=== PATIENT | female | born 1950 | race Caucasian/White ===

== ENCOUNTER 2018-06-03 14:41 | Emergency (ER) | payer MEDICARE, MEDICAID ==
[2018-06-03 14:41] VITALS: BMI 26.2
[2018-06-03 14:56] VITALS: BP 97/55; PULSE 81; RESP 19; TEMP 98.2; O2SAT 96
--- NOTE | 2018-06-03 15:49 | RAD ---
Date of service: 06/03/2018 PROCEDURE: Left Foot Radiographs. HISTORY: Pain COMPARISON: None. FINDINGS: BONES: Bone alignment is normal. There is no acute displaced fracture or bone destruction. There is periarticular bone demineralization. JOINTS: Normal. SOFT TISSUES: Normal. OTHER FINDINGS: None. IMPRESSION: No acute fracture or dislocation.
--- NOTE | 2018-06-03 17:15 | ED PDOC ---
Lower Extremity Pain/Injury Time Seen by Provider: 06/03/18 15:08 Chief Complaint (Nursing): Lower Extremity Problem/Injury Chief Complaint (Provider): Left foot pain History Per: Patient History/Exam Limitations: no limitations Onset/Duration Of Symptoms: Days (5x) Current Symptoms Are (Timing): Still Present Severity: Moderate Additional Complaint(s): 67 year old female with no pertinent past medical history presents to the ED with complaints of inner left foot pain that started 5x days ago. Patient does not remember sustaining any injury to her left foot. Patient was seen by her PMD at [facility] 3x days ago, and was told that she needed an XRay of her foot, prompting ED visit today. Patient reports having minimal pain when sedentary, and more pain with walking. Patient denies having any other complaints. PMD: [facility] Past Medical History Reviewed: Historical Data, Nursing Documentation, Vital Signs Vital Signs: Last Vital Signs Temp 98.2 F 06/03/18 14:54 Pulse 81 06/03/18 14:54 Resp 19 06/03/18 14:54 BP 97/55 L 06/03/18 14:54 Pulse Ox 96 06/03/18 14:54 - Medical History PMH: Anxiety, Depression, Fractures (right arm), HTN Denies: HIV, Chronic Kidney Disease - Surgical History Surgical History: Appendectomy, Cholecystectomy, Tonsillectomy - Family History Family History: States: No Known Family Hx - Social History Current smoker - smoking cessation education provided: No Alcohol: Other (yes) Drugs: Denies - Home Medications Home Medications: Ambulatory Orders Medication Instructions Recorded PARoxetine [Paxil] 30 mg PO DAILY 05/02/14 Nebivolol [Bystolic] 5 mg PO DAILY 10/09/14 Ibuprofen [Motrin] 600 mg PO Q6 PRN #20 tab 02/16/15 Prednisone 40 mg PO DAILY #10 tab 04/11/15 Diclofenac Sodium [Voltaren Gel] 1 gm TP BID PRN #30 gm 07/06/15 Oxycodone HCl/Acetaminophen 1 each PO Q6 PRN #10 tablet 07/06/15 [Percocet 5-325 mg Tablet] - Allergies Allergies/Adverse Reactions: Allergies Allergy/AdvReac Type Severity Reaction Status Date / Time iodine Allergy RASH Verified 06/03/18 14:56 Penicillins Allergy RASH Verified 06/03/18 14:56 Sulfa (Sulfonamide Allergy RASH Verified 06/03/18 14:56 Antibiotics) tetanus and diphtheria Allergy SWELLING Verified 06/03/18 14:56 toxoids [tetanus & diphtheria toxoids] Review of Systems ROS Statement: Except As Marked, All Systems Reviewed And Found Negative Musculoskeletal: Positive for: Foot Pain (inner left foot pain) Physical Exam - Reviewed Nursing Documentation Reviewed: Yes Vital Signs Reviewed: Yes - Physical Exam Appears: Positive for: Well, Non-toxic, No Acute Distress Head Exam: Positive for: ATRAUMATIC, NORMOCEPHALIC Skin: Positive for: Normal Color, Warm, Dry Extremity: Positive for: Normal ROM (of left foot), Capillary Refill (left foot: <2 sec ). Negative for: Tenderness, Calf Tenderness, Swelling Neurologic/Psych: Positive for: Alert, Oriented (3x) - ECG O2 Sat by Pulse Oximetry: 96 (RA) Pulse Ox Interpretation: Normal - Radiology X-Ray: Viewed By Me, Read By Radiologist (see MDM note) Medical Decision Making Medical Decision Makin:08 Initial impression: 67 year old female with inner left foot pain. Initial plan: * XRay foot left 3 views * reevaluation Patient was offered an GERARDO wrap for left foot, but declined it because she was going home. 15:45 XRay foot left read and reviewed by radiologist IMPRESSION: No acute fracture or dislocation. 17:14 Upon provider reevaluation patient is feeling better, is medically stable, and requires no further treatment in the ED at this time. Patient will be discharged home. Counseling was provided and all questions were answered regarding diagnosis. There is agreement to discharge plan. Return if symptoms persist or worsen. Scribe Attestation: Documented by April Evangelista, acting as a scribe for Alia Levine PA-C. Provider Scribe Attestation: All medical record entries made by the Scribe were at my direction and personally dictated by me. I have reviewed the chart and agree that the record accurately reflects my personal performance of the history, physical exam, medical decision making, and the department course for this patient. I have also personally directed, reviewed, and agree with the discharge instructions and disposition. Disposition - Clinical Impression Clinical Impression: Foot pain - Patient ED Disposition Is Patient to be Admitted: No Counseled Patient/Family Regarding: Diagnosis, Need For Followup - Disposition Disposition: Routine/Home Disposition Time: 17:14 Condition: GOOD Instructions: Muscle and Bone Pain (DC) Forms: [facility] [employer] (Qatari)
== END 2018-06-03 17:16 | disposition home or self-care (01) ==
LOC: H.ER 14:41
DX: M79.672 Pain in left foot (principal); Z86.59 Personal history of other mental and behavioral disorders; I10 Essential (primary) hypertension; Z88.0 Allergy status to penicillin

== ENCOUNTER 2018-08-12 10:58 | Emergency (ER) | payer MEDICARE, MEDICAID ==
[2018-08-12 11:15] VITALS: BMI 51.3
[2018-08-12 11:16] VITALS: BP 124/74; PULSE 89; RESP 17; TEMP 98.6; O2SAT 98
[2018-08-12 13:05] LABS: BASO % 0.6 % (0.0-2.0); EOS % 0.5 % (0.0-4.0); HEMOGLOBIN 14.2 g/dL (12.0-16.0); LYMPH # 0.9 K/uL (1.0-4.3); LYMPH % 14.4 % (20.0-40.0); MEAN CORPUSCULAR HEMOGLOBIN 26.4 pg (27.0-31.0); MEAN CORPUSCULAR HGB CONC 32.2 g/dL (33.0-37.0); MEAN PLATELET VOLUME 7.6 fl (7.2-11.7); MONO # 0.7 K/uL (0.0-0.8); MONO % 11.2 % (0.0-10.0); NEUT # 4.3 K/uL (1.8-7.0); NEUT % 73.3 % (50.0-75.0); NRBC % 0.2 % (0.0-0.0); RBC 5.36 Mil/uL (3.80-5.20); RED CELL DISTRIBUTION WIDTH 17.5 % (11.5-14.5); WHITE BLOOD COUNT 5.9 K/uL (4.8-10.8)
[2018-08-12 13:19] LABS: BLOOD UREA NITROGEN 25 mg/dl (7-17); CALCIUM 9.1 mg/dL (8.4-10.2); GFR NON-AFRICAN AMERICAN > 60
--- NOTE | 2018-08-12 13:24 | ED PDOC ---
HPI: Skin/Bite Injury Time Seen by Provider: 08/12/18 11:52 Chief Complaint (Nursing): Abnormal Skin Integrity Chief Complaint (Provider): spider bite History Per: Patient History/Exam Limitations: no limitations Additional Complaint(s): 67 y/o F with HTN, HL, DM, SLE who presents with spider bite. Pt states that she was in her yard 2 days ago when a spider fell down her shirt and bit her in the belly button. She was using witch aubrey but began noticing a foul odor and redness in the area so came in for further evaluation. She states that she noticed purulent drainage once and then became clear. Denies fever, abdominal pain, N/V, diarrhea. Past Medical History Vital Signs: Last Vital Signs Temp 98.6 F 08/12/18 11:15 Pulse 89 08/12/18 11:15 Resp 17 08/12/18 11:15 BP 124/74 08/12/18 11:15 Pulse Ox 98 08/12/18 11:15 - Medical History PMH: Anxiety, COPD, Depression, Fractures (right arm), HTN Denies: HIV, Chronic Kidney Disease - Surgical History Surgical History: Appendectomy, Cholecystectomy, Tonsillectomy - Family History Family History: States: Unknown Family Hx - Home Medications Home Medications: Ambulatory Orders Medication Instructions Recorded RX: PARoxetine [Paxil] 30 mg PO DAILY 05/02/14 Nebivolol [Bystolic] 5 mg PO DAILY 10/09/14 Ibuprofen [Motrin] 600 mg PO Q6 PRN #20 tab 02/16/15 RX: Prednisone 40 mg PO DAILY #10 tab 04/11/15 Diclofenac Sodium [Voltaren Gel] 1 gm TP BID PRN #30 gm 07/06/15 Oxycodone HCl/Acetaminophen 1 each PO Q6 PRN #10 tablet 07/06/15 [Percocet 5-325 mg Tablet] RX: Clindamycin [Cleocin] 450 mg PO TID 7 Days cap 08/12/18 RX: Nystatin 15 gm TP BID 7 Days powder 08/12/18 - Allergies Allergies/Adverse Reactions: Allergies Allergy/AdvReac Type Severity Reaction Status Date / Time iodine Allergy RASH Verified 06/03/18 14:56 Penicillins Allergy RASH Verified 06/03/18 14:56 Sulfa (Sulfonamide Allergy RASH Verified 06/03/18 14:56 Antibiotics) tetanus and diphtheria Allergy SWELLING Verified 06/03/18 14:56 toxoids [tetanus & diphtheria toxoids] diphenhydramine AdvReac Tachycardia Verified 08/12/18 11:49 [From Benadryl] Review of Systems Constitutional: Negative for: Fever, Chills Skin: Positive for: Rash Physical Exam - Reviewed Nursing Documentation Reviewed: Yes Vital Signs Reviewed: Yes - Physical Exam Appears: Positive for: Well Skin: Positive for: Rash (diffuse erythema extending approximately 7 in past navel area, mild foul odor with mild thick white discharge. Area of induration above navel area. No purulent drainage or fluctuance. ) Neurologic/Psych: Positive for: Alert, Oriented - Laboratory Results Result Diagrams: 08/12/18 13:01 08/12/18 13:01 - ECG O2 Sat by Pulse Oximetry: 98 Medical Decision Making Medical Decision Making: CBC, BMP labs wnl Pt advised to take antibiotics as prescribed and to use Nystatin powder in navel area as she appears to have mild fungal infection. She was given return instructions for fever, chills or night sweats. Disposition - Clinical Impression Clinical Impression: Cellulitis of abdominal wall - Patient ED Disposition Is Patient to be Admitted: No Counseled Patient/Family Regarding: Studies Performed, Diagnosis, Need For Followup - Disposition Disposition: Routine/Home Disposition Time: 14:30 Condition: STABLE Additional Instructions: F/u with your primary care doctor for re-evaluation. Complete course of antibiotics as prescribed. Return to ER if you develop worsening redness despite antibiotics or if you develop fevers. Take Tylenol or Ibuprofen for pain. Prescriptions: RX: Clindamycin [Cleocin] 450 mg PO TID 7 Days cap RX: Nystatin 15 gm TP BID 7 Days powder Instructions: Cellulitis (Skin Infection), Adult (DC) Forms: [employer] (Slovenian) Print Language: UKRAINIAN
== END 2018-08-12 14:44 | disposition home or self-care (01) ==
LOC: H.ER 10:58
DX: L03.311 Cellulitis of abdominal wall (principal); E11.9 Type 2 diabetes mellitus without complications; Z79.899 Other long term (current) drug therapy

== ENCOUNTER 2018-09-01 16:13 | Inpatient (IN) | payer OTHER, MEDICAID ==
[2018-09-01] MEDS ORDERED: Vancomycin 1 g Inj ONE (17:13)
--- NOTE | 2018-09-01 17:13 | ED PDOC ---
HPI: Skin/Bite Injury Time Seen by Provider: 09/01/18 16:38 Chief Complaint (Nursing): Shortness Of Breath Chief Complaint (Provider): Cellulitis History Per: Patient History/Exam Limitations: no limitations Onset/Duration Of Symptoms: Days Current Symptoms Are (Timing): Still Present Additional Complaint(s): 67 y/o female with a PMHx of COPD presents to the ED for evaluation of cellulitis. Patient reports of having erythema and tenderness to the periumbilical and suprapubic area as well as the right breast. Patient notes of being bitten by a spider two weeks ago started on PO Clindamycin with no improvement. Patient additionally reports of developing mild shortness of breath relating to COPD with improvement using at home oxygen. Patient denies any fever, drainage, cough and chest pain. PMD: [facility] Past Medical History Reviewed: Historical Data, Nursing Documentation, Vital Signs Vital Signs: Last Vital Signs Temp 99.4 F 09/01/18 16:26 Pulse 81 09/01/18 16:26 Resp 28 H 09/01/18 16:36 BP 126/85 09/01/18 16:26 Pulse Ox 2 L 09/01/18 16:36 - Medical History PMH: Anxiety, COPD, Depression, Fractures (right arm), HTN, Sleep Apnea Denies: HIV, Chronic Kidney Disease - Surgical History Surgical History: Appendectomy, Cholecystectomy, Tonsillectomy - Family History Family History: States: Unknown Family Hx - Home Medications Home Medications: Ambulatory Orders Medication Instructions Recorded PARoxetine [Paxil] 30 mg PO DAILY 05/02/14 Nebivolol [Bystolic] 5 mg PO DAILY 10/09/14 Aspirin [Ecotrin] 81 mg PO DAILY 09/01/18 - Allergies Allergies/Adverse Reactions: Allergies Allergy/AdvReac Type Severity Reaction Status Date / Time iodine Allergy RASH Verified 06/03/18 14:56 Penicillins Allergy RASH Verified 06/03/18 14:56 Sulfa (Sulfonamide Allergy RASH Verified 06/03/18 14:56 Antibiotics) tetanus and diphtheria Allergy SWELLING Verified 06/03/18 14:56 toxoids [tetanus & diphtheria toxoids] diphenhydramine AdvReac Tachycardia Verified 08/12/18 11:49 [From Benadryl] Review of Systems Respiratory: Positive for: Shortness of Breath Skin: Positive for: Rash Physical Exam - Reviewed Nursing Documentation Reviewed: Yes Vital Signs Reviewed: Yes - Physical Exam Appears: Positive for: No Acute Distress Head Exam: Positive for: ATRAUMATIC, NORMOCEPHALIC Skin: Positive for: Rash (periumbilical and suprapubic area with erythema, induration and peau d'orange. Right breast with erythema, warmth and tenderness to the lateral half extending to the nipple with no discharge. ) Eye Exam: Positive for: Normal appearance, EOMI, PERRL Neck: Positive for: Normal, Painless ROM Cardiovascular/Chest: Positive for: Regular Rate, Rhythm. Negative for: Murmur Respiratory: Positive for: Decreased Breath Sounds (mildly diminshed breath sounds). Negative for: Wheezing, Respiratory Distress Gastrointestinal/Abdominal: Positive for: Normal Exam Extremity: Positive for: Normal ROM. Negative for: Deformity Neurological/Psych: Positive for: Awake, Alert, Oriented - Laboratory Results Result Diagrams: 09/01/18 16:40 09/01/18 18:00 - ECG O2 Sat by Pulse Oximetry: 2 (RA) Pulse Ox Interpretation: Normal Medical Decision Making Medical Decision Making: Time: 1651 A/P: Cellulitis -- Failed outpatient therapy. -- Will start IV antibiotics. IV Vancomycin and obtain blood works and admit for continued IV antibiotic therapy -- VBG -- EKG -- CMP -- ED Urine Dipstick -- CBC with Differentials -- Vancomycin Inj 1 gm Sodium Chloride 250 ml IVPB -- Blood Culture -- Blood Culture Discussed with Dr. Reinoso. IV vancomycin started for failure of outpt tx of cellulitis. Calcium 5.9, albumin low at 2.3. No dysrhythmia on EKG. Will supplement with IV Calcium gluconate 500 mg and repeat ca in AM. Dr. Reinoso aware. Scribe Attestation: Documented by Bettye Woo, acting as a scribe Jodie Beatty M.D Provider Scribe Attestation: All medical record entries made by the Scribe were at my direction and personally dictated by me. I have reviewed the chart and agree that the record accurately reflects my personal performance of the history, physical exam, medical decision making, and the department course for this patient. I have also personally directed, reviewed, and agree with the discharge instructions and disposition. Disposition - Clinical Impression Clinical Impression: Cellulitis of abdominal wall, Hypocalcemia, Failure of outpatient treatment - Patient ED Disposition Is Patient to be Admitted: Yes - Disposition Disposition Time: 19:05 Condition: FAIR Forms: [employer] (Macedonian) - Pt Status Changed To: Hospital Disposition Of: Inpatient - Admit Certification Admit to Inpatient:: After my assessment, the patient will require hospitalization for at least two midnights. This is because of the severity of symptoms shown, intensity of services needed, and/or the medical risk in this patient being treated as an outpatient. - POA Present On Arrival: None
[2018-09-01 17:20] LABS: VENOUS BLOOD GAS BASE EXCESS 11.1 mmol/L (0.0-2.0); VENOUS BLOOD GAS PCO2 66 mmHg (40-60); VENOUS BLOOD GAS PO2 14 mm/Hg (30-55); VENOUS BLOOD PH 7.38 (7.32-7.43)
[2018-09-01 17:21] LABS: BASO % 0.6 % (0.0-2.0); EOS # 0.1 K/uL (0.0-0.7); EOS % 1.1 % (0.0-4.0); HEMOGLOBIN 13.4 g/dL (12.0-16.0); LYMPH # 0.8 K/uL (1.0-4.3); LYMPH % 15.3 % (20.0-40.0); MEAN CELL VOLUME 79.3 fl (81.0-99.0); MEAN CORPUSCULAR HEMOGLOBIN 24.7 pg (27.0-31.0); MEAN CORPUSCULAR HGB CONC 31.1 g/dL (33.0-37.0); MEAN PLATELET VOLUME 7.8 fl (7.2-11.7); MONO # 0.9 K/uL (0.0-0.8); MONO % 15.9 % (0.0-10.0); NEUT # 3.7 K/uL (1.8-7.0); NEUT % 67.1 % (50.0-75.0); NRBC % 0.1 % (0.0-0.0); RBC 5.45 Mil/uL (3.80-5.20); RED CELL DISTRIBUTION WIDTH 19.5 % (11.5-14.5); WHITE BLOOD COUNT 5.5 K/uL (4.8-10.8)
--- NOTE | 2018-09-01 18:35 | CARD ---
APPROVED REPORT Date of service: 09/01/2018 EKG Measurement Heart [id number] <Conclusion> Sinus rhythm with premature supraventricular complexes Low voltage complexes Cannot rule out Anterior infarct, age undetermined Abnormal ECG
[2018-09-01 18:42] LABS: ALB/GLOB RATIO 0.9 (1.0-2.1); ALBUMIN 2.3 g/dL (3.5-5.0); ALT/SGPT 42 U/L (9-52); AST/SGOT 20 U/L (14-36); BLOOD UREA NITROGEN 20 mg/dl (7-17); CALCIUM 5.9 mg/dL (8.4-10.2); GFR NON-AFRICAN AMERICAN > 60
[2018-09-01] MEDS ORDERED: Potassium Chl 40 mEq in D5-1/2 1,000 ML IV SCH (22:00)
[2018-09-01 23:28] VITALS: BMI 51.7
[2018-09-02 06:27] LABS: BASO % 0.4 % (0.0-2.0); EOS # 0.1 K/uL (0.0-0.7); EOS % 0.9 % (0.0-4.0); HEMOGLOBIN 12.6 g/dL (12.0-16.0); LYMPH # 0.8 K/uL (1.0-4.3); LYMPH % 10.6 % (20.0-40.0); MEAN CELL VOLUME 79.4 fl (81.0-99.0); MEAN CORPUSCULAR HEMOGLOBIN 24.9 pg (27.0-31.0); MEAN CORPUSCULAR HGB CONC 31.3 g/dL (33.0-37.0); MONO # 1.2 K/uL (0.0-0.8); MONO % 16.2 % (0.0-10.0); NEUT # 5.2 K/uL (1.8-7.0); NEUT % 71.9 % (50.0-75.0); NRBC % 0.1 % (0.0-0.0); RBC 5.08 Mil/uL (3.80-5.20); WHITE BLOOD COUNT 7.2 K/uL (4.8-10.8)
[2018-09-02 06:51] LABS: BLOOD UREA NITROGEN 24 mg/dl (7-17); CALCIUM 8.7 mg/dL (8.4-10.2); GFR NON-AFRICAN AMERICAN > 60
[2018-09-02] MEDS ORDERED: Albuterol-Ipratrop 3 mg / 0.5 (3 ml) UD INH PRN (08:58)
[2018-09-02] MEDS ORDERED: Enoxaparin 40 mg Syringe SC SCH (09:00)
[2018-09-02] MEDS ORDERED: PAROXETINE 30 MG PO SCH (09:00)
[2018-09-02] MEDS: Enoxaparin 60 mg Syringe SC SCH (09:03)
--- NOTE | 2018-09-02 11:05 | RAD ---
Date of service: 09/01/2018 HISTORY: cough COMPARISON: 06/17/2014. FINDINGS: LUNGS: The lungs are well inflated. There is mild pulmonary venous congestion. PLEURA: No pleural effusions or pneumothorax. CARDIOVASCULAR: Moderate cardiomegaly. No aortic atherosclerotic calcifications present. OSSEOUS STRUCTURES: Within normal limits for the patient's age. VISUALIZED UPPER ABDOMEN: Normal. OTHER FINDINGS: None. IMPRESSION: No active pulmonary disease.
[2018-09-02] MEDS: Ammonium Lactate 12% Cream (140 g) TOP SCH (17:35)
--- NOTE | 2018-09-02 20:10 | HP ---
HISTORY OF PRESENT ILLNESS: Ms. Brody is a 67-year-old female who was admitted via the emergency room because of a spider bite several days ago, associated with chills, fever abdominal wall periumbilical area and the right breast. She had been to the emergency room 2 weeks ago, when she first had the spider bite and was placed on clindamycin and some powder, but symptoms however worsened. She failed out treatment therapy and therefore came to the emergency room for further workup and therapy. She was noted to have severe erythema of the right breast abdominal wall periumbilical area especially and also in the left gluteal area. She therefore was admitted for IV antibiotics and therapy. PAST MEDICAL HISTORY: She has a past medical history of chronic obstructive pulmonary disease, anxiety, depression, fracture of right arm, hypertension, sleep apnea syndrome. FAMILY HISTORY: Non-revealing. SOCIAL HISTORY: She indicates that she quit smoking years ago. Does not drink alcohol and lives alone at home. PAST SURGICAL HISTORY: Remarkable for appendectomy, cholecystectomy and tonsillectomy. PHYSICAL EXAMINATION: GENERAL: The patient is alert and oriented, morbidly obese. VITAL SIGNS: Blood pressure of 126/85, pulse of 81, respiratory rate is 20 per minute. She has a low grade temperature of 99.4 degrees Fahrenheit. HEENT: Pupils are reactive to light and accommodation. Mouth shows fair hygiene. LUNGS: Fair aeration with dullness at the bases. HEART: Regular. No murmurs or gallops appreciated. BREASTS: There is cellulitis of the right breast and there is no discharge noted. ABDOMEN: There is severe cellulitis of the abdominal wall, especially the periumbilical area. RECTAL: Unremarkable. GENITALIA: Unremarkable. PELVIC: The gluteal area does not show any rash. EXTREMITIES: 1+ pitting pedal edema. CENTRAL NERVOUS SYSTEM: The patient is alert and oriented x3. No gross deficits appreciated except for unsteadiness of gait. LABORATORY DATA: Remarkable for sodium of 142, potassium 2.6, BUN of 20, creatinine 0.6, and serum calcium of 5.9. WBC 5.5, hemoglobin 13.4, platelet count 213,000. Venous blood gas; pH 7.36, pO2 of 14, pCO2 of 66, bicarbonate of 31. IMPRESSION: Cellulitis of abdominal wall and right breast following a spider bite, history of hypertension, morbid obesity, history of chronic obstructive pulmonary disease, history of anxiety with depression. PLAN: The plan is intravenous antibiotics. The patient also has incidentally noted hypokalemia and hypocalcemia. One would supplement calcium and potassium. Would continue antibiotic therapy and analgesics for pain, physical therapy evaluation for possible transfer to Transitional Care Unit. Will continue therapy as ordered. Oneil Reinoso MD
[2018-09-03] MEDS ORDERED: Benzocaine/Menthol (Cepacol) Lozenge PO PRN (05:34)
--- NOTE | 2018-09-03 09:34 | CP.PCM.PN ---
Subjective - Date & Time of Evaluation Date of Evaluation: 09/03/18 Time of Evaluation: 09:35 - Subjective Subjective: STILL WEAK CELLULITIS OF ABD WALL AND BREASTS IMPROVING ON IV ANTIBIOTICS Objective - Vital Signs/Intake and Output Vital Signs (last 24 hours): Temp Pulse Resp BP Pulse Ox 98.0 F 75 18 115/76 98 09/03/18 08:00 09/03/18 08:00 09/03/18 08:00 09/03/18 08:00 09/03/18 08:00 - Medications Medications: Current Medications Acetaminophen (Tylenol 325mg Tab) 650 mg PO Q4 PRN PRN Reason: Fever >100.4 F Albuterol/Ipratropium (Duoneb 3 Mg/0.5 Mg (3 Ml) Ud) 3 ml INH RQ6 PRN PRN Reason: Shortness of Breath Aspirin (Ecotrin) 81 mg PO DAILY [facility] Last Admin: 09/02/18 09:00 Dose: 81 mg Benzocaine/Menthol (Cepacol Sore Throat) 1 leonardo PO Q2 PRN PRN Reason: Sore Throat Last Admin: 09/03/18 06:13 Dose: 1 leonardo Enoxaparin Sodium (Lovenox) 60 mg SC DAILY [facility]; Protocol Last Admin: 09/02/18 09:03 Dose: 60 mg Vancomycin HCl 1 gm/ Sodium (Chloride) 250 mls @ 166.667 mls/hr IVPB Q12 [facility]; Protocol Last Admin: 09/02/18 21:31 Dose: 166.667 mls/hr Lactic Acid (Lac-Hydrin 12% Cream (140 G)) 1 ea TOP BID [facility] Last Admin: 09/02/18 17:35 Dose: 1 applic Metoprolol Tartrate (Lopressor) 25 mg PO Q12 [facility] Last Admin: 09/02/18 21:31 Dose: Not Given Paroxetine HCl (Paxil) 30 mg PO DAILY [facility] Last Admin: 09/02/18 09:02 Dose: 30 mg - Labs Labs: 09/02/18 05:45 09/02/18 05:45 - Constitutional Appears: No Acute Distress - Head Exam Head Exam: ATRAUMATIC, NORMAL INSPECTION, NORMOCEPHALIC - Eye Exam Eye Exam: EOMI, Normal appearance, PERRL Pupil Exam: NORMAL ACCOMODATION, PERRL - ENT Exam ENT Exam: Mucous Membranes Moist, Normal Exam - Neck Exam Neck Exam: Full ROM, Normal Inspection. absent: Lymphadenopathy - Respiratory Exam Respiratory Exam: Prolonged Expiratory Phase, Rales, NORMAL BREATHING PATTERN - Cardiovascular Exam Cardiovascular Exam: REGULAR RHYTHM, +S1, +S2. absent: Murmur - GI/Abdominal Exam GI & Abdominal Exam: Soft, Normal Bowel Sounds. absent: Tenderness - Rectal Exam Rectal Exam: NORMAL INSPECTION - Extremities Exam Extremities Exam: Full ROM, Normal Capillary Refill, Normal Inspection. absent: Joint Swelling, Pedal Edema - Back Exam Back Exam: NORMAL INSPECTION - Neurological Exam Neurological Exam: Alert, Awake, CN II-XII Intact, Normal Gait, Oriented x3 - Psychiatric Exam Psychiatric exam: Normal Affect, Normal Mood - Skin Skin Exam: Dry, Intact, Normal Color, Warm Additional comments: CELLULITIS OF BREAST AND ABD WALL IOMPROVING Assessment and Plan - Assessment and Plan (Free Text) Assessment: CELLULITIS OF ABD WALL AND BREAST ABNORMAL EKG HYPOCALCEMIA AND HYPOKALEMIA--RESOLVED MORBID OBESITY COPD Plan: CONTINUE ANTIBIOTIC RX CARDIOLOGY EVAL SURFACE BOSS FOR TCU
[2018-09-03] MEDS: Enoxaparin 60 mg Syringe SC SCH (09:58)
[2018-09-03] MEDS: Ammonium Lactate 12% Cream (140 g) TOP SCH ×2 (10:03→17:49)
--- NOTE | 2018-09-03 11:31 | CP.PCM.CON ---
History of Present Illness - History of Present Illness History of Present Illness: This 67-year-old female is well-known to me. She has had a history of panic disorder and has been using Paxil for it. She also has morbid obesity for which she had undergone a gastric sleeve procedure in 2003 which had to be reversed because of an infection. The patient subsequently has regained her weight and was planning to undergo a repeat bypass procedure to lose weight. She had seen me in September of last year to be evaluated prior to undergoing this procedure. Issues regarding her daytime drowsiness and snoring at night required a sleep study which revealed significant obstructive sleep apnea and the patient subsequently had titration studies done but never used CPAP machine for various reasons. She has also not undergone the gastric bypass procedure and continues to be severely obese at this point. The patient also has a history of smoking in the past and has significant COPD. PFTs have revealed significant restrictive and mild obstructive lung disease. The patient also had hypertension and borderline glucose intolerance. There is no prior history of myocardial infarction or congestive cardiac failure. An echocardiogram last year had revealed significant pulmonary hypertension probably related to chronic hypoxia due to hypoventilation syndrome. The patient was now hospitalized with cellulitis of the anterior abdominal and anterior chest wall. She has received intravenous antibiotics and indicates that there is a significant relief. Physical examination shows a middle-aged female who is extremely overweight and tends to fall asleep promptly but is easily arousable. Once awake she is quite coherent. She breathes at 16-18 breaths/min and has a heart rate of 80 bpm regular and a blood pressure of 134/74 mmHg her jugular venous pressure was not elevated and there was mild pitting edema over both lower extremities. The pedal pulses were well felt. There were no rales there was no gallop. Her electrocardiogram shows sinus rhythm with extreme right axis deviation and QS complexes in anterior chest leads suggestive of an old septal wall myocardial infarction, a pattern seen on earlier electric cardiogram as well. The echocardiogram does not last year shows normal left ventricular wall motion. Her pulmonary artery systolic pressure was approximately 55 mmHg. Her lab data was noted. Impression: Extreme obesity with obstructive sleep apnea, hypoxia hypov entilation syndrome with moderate pulmonary hypertension. Anxiety disorder. I will obtain a repeat electrocardiogram. The importance of addressing her sleep apnea was explained to her. In the meantime, she appears stable from cardiovascular point of view. Past Patient History - Infectious Disease Hx of Infectious Diseases: None - Tetanus Immunizations Tetanus Immunization: Unknown - Past Medical History & Family History Past Medical History?: Yes - Past Social History Smoking Status: Never Smoked - CARDIAC Hx Hypertension: Yes - PULMONARY Hx Chronic Obstructive Pulmonary Disease (COPD): Yes Hx Sleep Apnea: Yes - NEUROLOGICAL Hx Neurological Disorder: No (unknown) - HEENT Hx HEENT Problems: No - RENAL Hx Chronic Kidney Disease: No - ENDOCRINE/METABOLIC Hx Endocrine Disorders: Yes Hx Diabetes Mellitus Type 2: Yes (borderline) Hx Systemic Lupus Erythematosus: Yes - HEMATOLOGICAL/ONCOLOGICAL Hx Blood Disorders: No Hx AIDS: No Hx Human Immunodeficiency Virus (HIV): No - INTEGUMENTARY Hx Dermatological Problems: No - MUSCULOSKELETAL/RHEUMATOLOGICAL Hx Falls: No Hx Fractures: Yes (right arm) - GASTROINTESTINAL Hx Gastrointestinal Disorders: No Other/Comment: Hx of lap band surgery, has since been removed. - GENITOURINARY/GYNECOLOGICAL Hx Genitourinary Disorders: No - PSYCHIATRIC Hx Anxiety: Yes Hx Depression: Yes Hx Substance Use: No - SURGICAL HISTORY Hx Appendectomy: Yes Hx Cholecystectomy: Yes Hx Tonsillectomy: Yes - ANESTHESIA Hx Anesthesia: Yes Meds Allergies/Adverse Reactions: Allergies Allergy/AdvReac Type Severity Reaction Status Date / Time iodine Allergy RASH Verified 06/03/18 14:56 Penicillins Allergy RASH Verified 06/03/18 14:56 Sulfa (Sulfonamide Allergy RASH Verified 06/03/18 14:56 Antibiotics) tetanus and diphtheria Allergy SWELLING Verified 06/03/18 14:56 toxoids [tetanus & diphtheria toxoids] diphenhydramine AdvReac Tachycardia Verified 08/12/18 11:49 [From Benadryl] - Medications Medications: Current Medications Acetaminophen (Tylenol 325mg Tab) 650 mg PO Q4 PRN PRN Reason: Fever >100.4 F Albuterol/Ipratropium (Duoneb 3 Mg/0.5 Mg (3 Ml) Ud) 3 ml INH RQ6 PRN PRN Reason: Shortness of Breath Aspirin (Ecotrin) 81 mg PO DAILY [facility] Last Admin: 09/03/18 09:56 Dose: 81 mg Benzocaine/Menthol (Cepacol Sore Throat) 1 leonardo PO Q2 PRN PRN Reason: Sore Throat Last Admin: 09/03/18 06:13 Dose: 1 leonardo Enoxaparin Sodium (Lovenox) 60 mg SC DAILY [facility]; Protocol Last Admin: 09/03/18 09:58 Dose: 60 mg Vancomycin HCl 1 gm/ Sodium (Chloride) 250 mls @ 166.667 mls/hr IVPB Q12 [facility]; Protocol Last Admin: 09/03/18 10:00 Dose: 166.667 mls/hr Lactic Acid (Lac-Hydrin 12% Cream (140 G)) 1 ea TOP BID [facility] Last Admin: 09/03/18 10:03 Dose: 1 applic Metoprolol Tartrate (Lopressor) 25 mg PO Q12 [facility] Last Admin: 09/03/18 09:57 Dose: 25 mg Paroxetine HCl (Paxil) 30 mg PO DAILY [facility] Last Admin: 09/03/18 09:58 Dose: 30 mg Results - Vital Signs Recent Vital Signs: Last Vital Signs Temp 98.0 F 09/03/18 08:00 Pulse 75 09/03/18 09:57 Resp 18 09/03/18 08:00 BP 115/76 09/03/18 09:57 Pulse Ox 98 09/03/18 08:00 - Labs Result Diagrams: 09/02/18 05:45 09/02/18 05:45
--- NOTE | 2018-09-03 21:17 | CARD ---
APPROVED REPORT Date of service: 09/03/2018 EKG Measurement Heart [id number] <Conclusion> Sinus rhythm with premature atrial complexes Rightward axis Low voltage QRS Nonspecific T wave abnormality Abnormal ECG
[2018-09-04] MEDS: Enoxaparin 60 mg Syringe SC SCH (08:56)
--- NOTE | 2018-09-04 09:27 | CP.PCM.PN ---
Subjective - Date & Time of Evaluation Date of Evaluation: 09/04/18 Time of Evaluation: 09:30 - Subjective Subjective: SKIN ERYTEMA IMPROVED NO CHEST PAINS/SOB Objective - Vital Signs/Intake and Output Vital Signs (last 24 hours): Temp Pulse Resp BP Pulse Ox 97.4 F L 83 20 99/59 L 93 L 09/04/18 08:32 09/04/18 08:56 09/04/18 08:32 09/04/18 08:56 09/04/18 08:32 - Medications Medications: Current Medications Acetaminophen (Tylenol 325mg Tab) 650 mg PO Q4 PRN PRN Reason: Fever >100.4 F Albuterol/Ipratropium (Duoneb 3 Mg/0.5 Mg (3 Ml) Ud) 3 ml INH RQ6 PRN PRN Reason: Shortness of Breath Aspirin (Ecotrin) 81 mg PO DAILY [facility] Last Admin: 09/04/18 08:55 Dose: 81 mg Benzocaine/Menthol (Cepacol Sore Throat) 1 leonardo PO Q2 PRN PRN Reason: Sore Throat Last Admin: 09/03/18 06:13 Dose: 1 leonardo Enoxaparin Sodium (Lovenox) 60 mg SC DAILY [facility]; Protocol Last Admin: 09/04/18 08:56 Dose: 60 mg Vancomycin HCl 1 gm/ Sodium (Chloride) 250 mls @ 166.667 mls/hr IVPB Q12 [facility]; Protocol Last Admin: 09/04/18 08:57 Dose: 166.667 mls/hr Lactic Acid (Lac-Hydrin 12% Cream (140 G)) 1 ea TOP BID [facility] Last Admin: 09/03/18 17:49 Dose: 1 applic Metoprolol Tartrate (Lopressor) 12.5 mg PO DAILY [facility] Paroxetine HCl (Paxil) 30 mg PO DAILY [facility] Last Admin: 09/04/18 08:57 Dose: 30 mg - Labs Labs: 09/02/18 05:45 09/02/18 05:45 - Constitutional Appears: No Acute Distress - Head Exam Head Exam: ATRAUMATIC, NORMAL INSPECTION, NORMOCEPHALIC - Eye Exam Eye Exam: EOMI, Normal appearance, PERRL Pupil Exam: NORMAL ACCOMODATION, PERRL - ENT Exam ENT Exam: Mucous Membranes Moist, Normal Exam - Neck Exam Neck Exam: Full ROM, Normal Inspection. absent: Lymphadenopathy - Respiratory Exam Respiratory Exam: Clear to Ausculation Bilateral, NORMAL BREATHING PATTERN - Cardiovascular Exam Cardiovascular Exam: REGULAR RHYTHM, +S1, +S2. absent: Murmur Additional comments: FEW EXTRASYSTOLES - GI/Abdominal Exam GI & Abdominal Exam: Soft, Normal Bowel Sounds. absent: Tenderness - Rectal Exam Rectal Exam: NORMAL INSPECTION - Extremities Exam Extremities Exam: Full ROM, Normal Capillary Refill, Normal Inspection. absent: Joint Swelling, Pedal Edema - Back Exam Back Exam: NORMAL INSPECTION - Neurological Exam Neurological Exam: Alert, Awake, CN II-XII Intact, Normal Gait, Oriented x3 - Psychiatric Exam Psychiatric exam: Normal Affect, Normal Mood - Skin Skin Exam: Dry, Intact, Normal Color, Warm Additional comments: CELLULITIS IMPROVING Assessment and Plan - Assessment and Plan (Free Text) Assessment: CELLULITIS OF ABD WALL AND BREASTS ARRYTHMIAS MORBID OBESITY COPD WITH PULM HTN CASTILLO SYNDROME DEPRESSION Plan: CARDIOLOGY FOLLOWUP DECREASE DOSE OF BETA ENRIQUETA CONTINUE IV ANTIBIOTIC TX
--- NOTE | 2018-09-04 10:54 | CP.PCM.PN ---
Subjective - Date & Time of Evaluation Date of Evaluation: 09/04/18 Time of Evaluation: 10:50 - Subjective Subjective: The patient has been extremely somnolent and can be woken up with a slight difficulty. When awake the patient is quite oriented but tends to fall asleep promptly. Telemetry shows frequent premature atrial beats and rarely runs of APCs. Electrocardiogram shows right axis deviation with poor R wave progression in V1 to V4. The QRS voltage is small. There is no evidence of overt congestive cardiac failure in the form of raised JVP there is significant pedal edema. I have requested an echocardiogram to evaluate her right ventricle and pulmonary artery systolic pressure. Objective - Vital Signs/Intake and Output Vital Signs (last 24 hours): Temp Pulse Resp BP Pulse Ox 97.4 F L 83 20 99/59 L 93 L 09/04/18 08:32 09/04/18 08:56 09/04/18 08:32 09/04/18 08:56 09/04/18 08:32 - Medications Medications: Current Medications Acetaminophen (Tylenol 325mg Tab) 650 mg PO Q4 PRN PRN Reason: Fever >100.4 F Albuterol/Ipratropium (Duoneb 3 Mg/0.5 Mg (3 Ml) Ud) 3 ml INH RQ6 PRN PRN Reason: Shortness of Breath Aspirin (Ecotrin) 81 mg PO DAILY [facility] Last Admin: 09/04/18 08:55 Dose: 81 mg Benzocaine/Menthol (Cepacol Sore Throat) 1 leonardo PO Q2 PRN PRN Reason: Sore Throat Last Admin: 09/03/18 06:13 Dose: 1 leonardo Enoxaparin Sodium (Lovenox) 60 mg SC DAILY [facility]; Protocol Last Admin: 09/04/18 08:56 Dose: 60 mg Vancomycin HCl 1 gm/ Sodium (Chloride) 250 mls @ 166.667 mls/hr IVPB Q12 [facility]; Protocol Last Admin: 09/04/18 08:57 Dose: 166.667 mls/hr Lactic Acid (Lac-Hydrin 12% Cream (140 G)) 1 ea TOP BID [facility] Last Admin: 09/03/18 17:49 Dose: 1 applic Metoprolol Tartrate (Lopressor) 12.5 mg PO DAILY [facility] Paroxetine HCl (Paxil) 30 mg PO DAILY [facility] Last Admin: 09/04/18 08:57 Dose: 30 mg - Labs Labs: 09/02/18 05:45 09/02/18 05:45
[2018-09-04] MEDS: Ammonium Lactate 12% Cream (140 g) TOP SCH ×2 (14:55→17:09)
--- NOTE | 2018-09-04 17:34 | CARD ---
APPROVED REPORT Date of service: 09/04/2018 EKG Measurement Heart [id number] <Conclusion> Sinus rhythm with 1st degree AV block with premature atrial complexes Low voltage QRS Possible Anterolateral infarct, age undetermined Nonspecific ST-T changes Abnormal ECG
--- NOTE | 2018-09-05 08:41 | CP.PCM.PN ---
Subjective - Date & Time of Evaluation Date of Evaluation: 09/05/18 Time of Evaluation: 08:42 - Subjective Subjective: CELLULITIS OF ABD WALL AND BREAST IMPROVING NO CHEST PAINS/SOB TRANSFER TO TCU HELD BECAUSE OF CARDIAC EVAL Objective - Vital Signs/Intake and Output Vital Signs (last 24 hours): Temp Pulse Resp BP Pulse Ox 98.1 F 71 18 97/65 L 92 L 09/05/18 08:30 09/05/18 08:30 09/05/18 08:30 09/05/18 08:30 09/05/18 08:30 - Medications Medications: Current Medications Acetaminophen (Tylenol 325mg Tab) 650 mg PO Q4 PRN PRN Reason: Fever >100.4 F Albuterol/Ipratropium (Duoneb 3 Mg/0.5 Mg (3 Ml) Ud) 3 ml INH RQ6 PRN PRN Reason: Shortness of Breath Aspirin (Ecotrin) 81 mg PO DAILY [facility] Last Admin: 09/04/18 08:55 Dose: 81 mg Benzocaine/Menthol (Cepacol Sore Throat) 1 leonardo PO Q2 PRN PRN Reason: Sore Throat Last Admin: 09/03/18 06:13 Dose: 1 leonardo Enoxaparin Sodium (Lovenox) 60 mg SC DAILY [facility]; Protocol Last Admin: 09/04/18 08:56 Dose: 60 mg Vancomycin HCl 1 gm/ Sodium (Chloride) 250 mls @ 166.667 mls/hr IVPB Q12 [facility]; Protocol Last Admin: 09/04/18 21:30 Dose: 166.667 mls/hr Lactic Acid (Lac-Hydrin 12% Cream (140 G)) 1 ea TOP BID [facility] Last Admin: 09/04/18 17:09 Dose: 1 applic Metoprolol Tartrate (Lopressor) 12.5 mg PO DAILY [facility] Paroxetine HCl (Paxil) 30 mg PO DAILY [facility] Last Admin: 09/04/18 08:57 Dose: 30 mg - Labs Labs: 09/02/18 05:45 09/02/18 05:45 - Constitutional Appears: No Acute Distress - Head Exam Head Exam: ATRAUMATIC, NORMAL INSPECTION, NORMOCEPHALIC - Eye Exam Eye Exam: EOMI, Normal appearance, PERRL Pupil Exam: NORMAL ACCOMODATION, PERRL - ENT Exam ENT Exam: Mucous Membranes Moist, Normal Exam - Neck Exam Neck Exam: Full ROM, Normal Inspection. absent: Lymphadenopathy - Respiratory Exam Respiratory Exam: Clear to Ausculation Bilateral, NORMAL BREATHING PATTERN - Cardiovascular Exam Cardiovascular Exam: REGULAR RHYTHM, +S1, +S2. absent: Murmur - GI/Abdominal Exam GI & Abdominal Exam: Soft, Normal Bowel Sounds. absent: Tenderness - Rectal Exam Rectal Exam: NORMAL INSPECTION - Exam Exam: NORMAL INSPECTION - Extremities Exam Extremities Exam: Full ROM, Normal Capillary Refill, Normal Inspection. absent: Joint Swelling, Pedal Edema - Back Exam Back Exam: NORMAL INSPECTION - Neurological Exam Neurological Exam: Alert, Awake, CN II-XII Intact, Normal Gait, Oriented x3 - Psychiatric Exam Psychiatric exam: Normal Affect, Normal Mood - Skin Skin Exam: Dry, Intact, Normal Color, Warm Assessment and Plan - Assessment and Plan (Free Text) Assessment: CELLULITIS OF ABD WALL AND BREAST IMPROVING MORBID OBESITY CASTILLO SYNDROME ARRYTH/ASHD ELECTROLYTE IMBALANCE IMPROVED Plan: TRANSFER TO TCU IF CLEARED BY CARDIOLOGY WILL NEED 5 MORE DAYS OF IV ANTIBIOTICS
--- NOTE | 2018-09-05 08:53 | CARD ---
APPROVED REPORT Date of service: 09/04/2018 EXAM: Two-dimensional and M-mode echocardiogram with Doppler and color Doppler. Other Information Quality : AverageRhythm : Atrial Fibrillation INDICATION Pulmonary Hypertention 2D DIMENSIONS IVSd1.18 (0.7-1.1cm)LVDd4.66 (3.9-5.9cm) LVOT Diameter1.97 (1.8-2.4cm)PWd1.13 (0.7-1.1cm) IVSs1.09 (0.8-1.2cm)LVDs3.43 (2.5-4.0cm) FS (%) 26.3 %PWs1.13 (0.8-1.2cm) M-Mode DIMENSIONS Left Atrium (MM)5.56 (2.5-4.0cm)IVSd0.97 (0.7-1.1cm) Aortic Root2.55 (2.2-3.7cm)LVDd4.25 (4.0-5.6cm) Aortic Cusp Exc.2.08 (1.5-2.0cm)PWd1.24 (0.7-1.1cm) IVSs1.20 cmFS (%) 20 % LVDs3.40 (2.0-3.8cm)PWs1.51 cm Mitral Valve E/A ratio0.0 TDI E/Lateral E'0.0E/Medial E'0.0 Tricuspid Valve TR Peak [id number] [id number] Peak Gr.64mmHg [id number] LEFT VENTRICLE The left ventricle is normal size. There is normal left ventricular wall thickness. Left ventricle systolic function is normal. LVEF is 55-60%. There is normal LV segmental wall motion. Transmitral Doppler flow pattern is Grade I-abnormal relaxation pattern. RIGHT VENTRICLE The right ventricle is moderately to severely dilated. Systolic function is moderately reduced. ATRIA The left atrium size is normal. The right atrium is severely dilated. AORTIC VALVE The aortic valve is normal in structure. No aortic regurgitation is present. There is no aortic valvular stenosis. MITRAL VALVE The mitral valve is normal in structure. There is no evidence of mitral valve prolapse. There is no mitral valve stenosis. Mitral regurgitation is mild. TRICUSPID VALVE The tricuspid valve is normal in structure. There is moderate to severe tricuspid regurgitation. Right ventricular systolic pressure is estimated at 74 mmHg. There is severe pulmonary hypertension. PULMONIC VALVE The pulmonic valve is not well visualized. There is no pulmonic valvular regurgitation. GREAT VESSELS The aortic root is normal in size. The IVC was not visualized. PERICARDIAL EFFUSION The pericardium appears normal. <Conclusion> Due to evere obesity and chr lung disease the echo window was poor and the quality of images was poor. The left ventricle is normal size. There is normal left ventricular wall thickness. There is normal LV segmental wall motion. Left ventricle systolic function is normal. LVEF is 55-60%. Transmitral Doppler flow pattern is Grade I-abnormal relaxation pattern. The right ventricle is moderately to severely dilated. The right ventricle is moderately to severely dilated. Systolic function is moderately reduced. The right atrium is severely dilated. There is moderate to severe tricuspid regurgitation. Right ventricular systolic pressure is estimated at 74 mmHg. There is severe pulmonary hypertension.
[2018-09-05] MEDS: Enoxaparin 60 mg Syringe SC SCH (09:32)
[2018-09-05] MEDS: Ammonium Lactate 12% Cream (140 g) TOP SCH (09:33)
--- NOTE | 2018-09-05 10:12 | CP.PCM.PN ---
Subjective - Date & Time of Evaluation Date of Evaluation: 09/05/18 Time of Evaluation: 09:00 - Subjective Subjective: The patient was seen resting in bed. She appears mildly drowsy but is able to carry on a conversation and participate in discussion about her health. Review of her telemetry shows sinus rhythm with frequent premature atrial beats. Her blood pressure was 104/70 mmHg. Review of her echocardiogram shows a dilated right ventricle and a markedly dilated right atrium with a pulmonary artery systolic pressure of 74 mmHg. The patient has severe pulmonary hypertension as a consequence of chronic hypoxia secondary to obstructive sleep apnea which probably is a consequence of severe obesity. The patient needs to start using CPAP machine and needs to be evaluated for early gastric bypass surgery. I have spoken with the patient as well as her daughter about this. The patient may proceed to transitional care unit and then be considered for possible discharge. Objective - Vital Signs/Intake and Output Vital Signs (last 24 hours): Temp Pulse Resp BP Pulse Ox 98.1 F 71 18 97/65 L 92 L 09/05/18 08:30 09/05/18 08:30 09/05/18 08:30 09/05/18 09:33 09/05/18 08:30 - Medications Medications: Current Medications Acetaminophen (Tylenol 325mg Tab) 650 mg PO Q4 PRN PRN Reason: Fever >100.4 F Albuterol/Ipratropium (Duoneb 3 Mg/0.5 Mg (3 Ml) Ud) 3 ml INH RQ6 PRN PRN Reason: Shortness of Breath Aspirin (Ecotrin) 81 mg PO DAILY [facility] Last Admin: 09/05/18 09:33 Dose: 81 mg Benzocaine/Menthol (Cepacol Sore Throat) 1 leonardo PO Q2 PRN PRN Reason: Sore Throat Last Admin: 09/03/18 06:13 Dose: 1 leonardo Enoxaparin Sodium (Lovenox) 60 mg SC DAILY [facility]; Protocol Last Admin: 09/05/18 09:32 Dose: 60 mg Vancomycin HCl 1 gm/ Sodium (Chloride) 250 mls @ 166.667 mls/hr IVPB Q12 [facility]; Protocol Last Admin: 09/05/18 09:34 Dose: 166.667 mls/hr Lactic Acid (Lac-Hydrin 12% Cream (140 G)) 1 ea TOP BID [facility] Last Admin: 09/05/18 09:33 Dose: 1 applic Paroxetine HCl (Paxil) 30 mg PO DAILY [facility] Last Admin: 09/05/18 09:32 Dose: 30 mg - Labs Labs: 09/02/18 05:45 09/02/18 05:45
[2018-09-05 11:16] LABS: BLOOD UREA NITROGEN 18 mg/dl (7-17); CALCIUM 8.6 mg/dL (8.4-10.2); GFR NON-AFRICAN AMERICAN > 60
[2018-09-05 16:25] VITALS: BP 98/65; PULSE 85; RESP 20; TEMP 98.4; O2SAT 94
== END 2018-09-05 16:22 | DRG 603 ==
LOC: H.ER 16:13 → H.ERHOLD 18:59 → H.TEL 21:05
PROVIDERS: ADMIT Internal Medicine Pulmonary Disease; ATTEND Internal Medicine Pulmonary Disease
DX: L03.311 Cellulitis of abdominal wall (principal); Z68.43 Body mass index [BMI] 50.0-59.9, adult; T63.301A Toxic effect of unspecified spider venom, accidental (unintentional), initial encounter; N61.0 Mastitis without abscess; E87.6 Hypokalemia; E66.01 Morbid (severe) obesity due to excess calories; E83.51 Hypocalcemia; M32.9 Systemic lupus erythematosus, unspecified; E11.9 Type 2 diabetes mellitus without complications; I27.20 Pulmonary hypertension, unspecified; F32.9 Major depressive disorder, single episode, unspecified; F41.0 Panic disorder [episodic paroxysmal anxiety]; G47.33 Obstructive sleep apnea (adult) (pediatric); I10 Essential (primary) hypertension; I25.10 Atherosclerotic heart disease of native coronary artery without angina pectoris; J44.9 Chronic obstructive pulmonary disease, unspecified; G47.36 Sleep related hypoventilation in conditions classified elsewhere; Z98.84 Bariatric surgery status; Z87.891 Personal history of nicotine dependence; Z99.81 Dependence on supplemental oxygen; Z79.82 Long term (current) use of aspirin; Z88.0 Allergy status to penicillin; Z88.2 Allergy status to sulfonamides; Z91.041 Radiographic dye allergy status; Z88.7 Allergy status to serum and vaccine; Y92.9 Unspecified place or not applicable

== ENCOUNTER 2018-09-04 13:14 | Inpatient (IN) | payer OTHER, MEDICAID ==
[2018-09-05 16:50] VITALS: BMI 43.4
[2018-09-05] MEDS ORDERED: Albuterol-Ipratrop 3 mg / 0.5 (3 ml) UD INH PRN (17:11)
[2018-09-05] MEDS ORDERED: Benzocaine/Menthol (Cepacol) Lozenge PO PRN (17:11)
[2018-09-05] MEDS ORDERED: Patient's Own Med (Vancomycin 1 Gm [Vancomycin 1gm In Normal Saline Addvantage] 1 GM) IVPB SCH (21:00)
[2018-09-05] MEDS ORDERED: Bisacodyl 5mg EC Tab PO ONE (22:02)
[2018-09-05] MEDS: Ammonium Lactate 12% Cream (140 g) TOP SCH (22:04)
[2018-09-06] MEDS: Ammonium Lactate 12% Cream (140 g) TOP SCH ×2 (08:12→21:51)
[2018-09-06] MEDS: Enoxaparin 60 mg Syringe SC SCH (08:13)
--- NOTE | 2018-09-06 08:23 | CP.PCM.CON ---
History of Present Illness - History of Present Illness History of Present Illness: 7-year-old female is well-known to me. She is a long- standing severely obese patient who had undergone surgery for obesity with insertion of a gastric sleeve which was removed subsequently. She has gained significant amount of weight subsequently and now has severe obstructive sleep apnea with chronic hypoxia and severe pulmonary hypertension. The patient was recently treated in the acute care section of this facility and is now on transitional care unit before returning home. Physical examination shows a middle aged extremely overweight pleasant female who is anxious. She is alert awake coherent afebrile. Her pulse rate was 70 bpm regular and her blood pressure is 124/70 mmHg. Her jugular venous pressure could not be evaluated because of a short thick neck. There was pitting edema over both lower extremities which is chronic in nature. The apex was not palpable the first and second heart sounds were normal and distant. There was no gallop rhythm. The inspiratory effort was poor but there were no rales. Impression: Severe obstructive sleep apnea with chronic hypoxia and severe luminary hypertension. Morbid obesity. The patient needs to use CPAP machine which she understands. And she needs to be evaluated to go through gastric bypass surgery to resolve her morbid obesity. She is stable from cardiovascular point of view. Past Patient History - Infectious Disease Hx of Infectious Diseases: None - Tetanus Immunizations Tetanus Immunization: Unknown - Past Medical History & Family History Past Medical History?: Yes - Past Social History Smoking Status: Former Smoker - CARDIAC Hx Hypertension: Yes - PULMONARY Hx Chronic Obstructive Pulmonary Disease (COPD): Yes Hx Sleep Apnea: Yes - NEUROLOGICAL Hx Neurological Disorder: No (unknown) - HEENT Hx HEENT Problems: No - RENAL Hx Chronic Kidney Disease: No - ENDOCRINE/METABOLIC Hx Endocrine Disorders: Yes Hx Diabetes Mellitus Type 2: Yes (borderline) Hx Systemic Lupus Erythematosus: Yes - HEMATOLOGICAL/ONCOLOGICAL Hx Blood Disorders: No Hx AIDS: No Hx Human Immunodeficiency Virus (HIV): No Other/Comment: lupus - INTEGUMENTARY Hx Dermatological Problems: No - MUSCULOSKELETAL/RHEUMATOLOGICAL Hx Falls: No Hx Fractures: Yes (right arm) - GASTROINTESTINAL Hx Gastrointestinal Disorders: No Other/Comment: Hx of lap band surgery, has since been removed. - GENITOURINARY/GYNECOLOGICAL Hx Genitourinary Disorders: No - PSYCHIATRIC Hx Anxiety: Yes Hx Depression: Yes Hx Substance Use: No - SURGICAL HISTORY Hx Appendectomy: Yes Hx Cholecystectomy: Yes Hx Tonsillectomy: Yes - ANESTHESIA Hx Anesthesia: Yes Meds Allergies/Adverse Reactions: Allergies Allergy/AdvReac Type Severity Reaction Status Date / Time iodine Allergy RASH Verified 09/05/18 16:52 Penicillins Allergy RASH Verified 09/05/18 16:52 Sulfa (Sulfonamide Allergy RASH Verified 09/05/18 16:52 Antibiotics) tetanus and diphtheria Allergy SWELLING Verified 09/05/18 16:52 toxoids [tetanus & diphtheria toxoids] diphenhydramine AdvReac Tachycardia Verified 09/05/18 16:52 [From Benadryl] - Medications Medications: Current Medications Acetaminophen (Tylenol 325mg Tab) 650 mg PO Q4 PRN PRN Reason: Fever >100.4 F Albuterol/Ipratropium (Duoneb 3 Mg/0.5 Mg (3 Ml) Ud) 3 ml INH RQ6 PRN PRN Reason: Shortness of Breath Aspirin (Ecotrin) 81 mg PO DAILY [facility] Last Admin: 09/06/18 08:13 Dose: 81 mg Benzocaine/Menthol (Cepacol Sore Throat) 1 leonardo PO Q2 PRN PRN Reason: Sore Throat Docusate Sodium (Colace) 100 mg PO BID [facility] Last Admin: 09/06/18 08:13 Dose: 100 mg Enoxaparin Sodium (Lovenox) 60 mg SC DAILY [facility]; Protocol Last Admin: 09/06/18 08:13 Dose: 60 mg Vancomycin HCl 1 gm/ Sodium (Chloride) 250 mls @ 166.667 mls/hr IVPB Q12H [facility] Last Admin: 09/06/18 06:00 Dose: 166.667 mls/hr Lactic Acid (Lac-Hydrin 12% Cream (140 G)) 1 ea TOP Q12 [facility] Last Admin: 09/06/18 08:12 Dose: 1 u Paroxetine HCl (Paxil) 30 mg PO DAILY [facility] Last Admin: 09/06/18 08:14 Dose: 30 mg Results - Vital Signs Recent Vital Signs: Last Vital Signs Temp 97.3 F L 09/06/18 07:52 Pulse 83 09/06/18 07:52 Resp 22 09/06/18 07:52 BP 121/72 09/06/18 07:52 Pulse Ox 95 09/06/18 07:52
--- NOTE | 2018-09-06 12:23 | CP.PCM.HP ---
History of Present Illness - History of Present Illness History of Present Illness: 67 YR OLD FEMALE TRANSFERRED FROM TELEMETRY FOLLOWING THERAPY FOR CELLULITIS OF ABDOMINAL WALL AND BREASTS. PT IS HYPERTENSIVE WITH HX OF COPD,PULMONARY HTN,CASTILLO SYNDROME,MORBID OBESITY AND DEPRESSION. 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 SURGERY FOR OBESITY Present on Admission - Present on Admission Any Indicators Present on Admission: No Past Patient History - Infectious Disease Hx of Infectious Diseases: None - Tetanus Immunizations Tetanus Immunization: Unknown - Past Medical History & Family History Past Medical History?: Yes - Past Social History Smoking Status: Former Smoker - CARDIAC Hx Hypertension: Yes - PULMONARY Hx Chronic Obstructive Pulmonary Disease (COPD): Yes Hx Sleep Apnea: Yes - NEUROLOGICAL Hx Neurological Disorder: No (unknown) - HEENT Hx HEENT Problems: No - RENAL Hx Chronic Kidney Disease: No - ENDOCRINE/METABOLIC Hx Endocrine Disorders: Yes Hx Diabetes Mellitus Type 2: Yes (borderline) Hx Systemic Lupus Erythematosus: Yes - HEMATOLOGICAL/ONCOLOGICAL Hx Blood Disorders: No Hx AIDS: No Hx Human Immunodeficiency Virus (HIV): No Other/Comment: lupus - INTEGUMENTARY Hx Dermatological Problems: No - MUSCULOSKELETAL/RHEUMATOLOGICAL Hx Falls: No Hx Fractures: Yes (right arm) - GASTROINTESTINAL Hx Gastrointestinal Disorders: No Other/Comment: Hx of lap band surgery, has since been removed. - GENITOURINARY/GYNECOLOGICAL Hx Genitourinary Disorders: No - PSYCHIATRIC Hx Anxiety: Yes Hx Depression: Yes Hx Substance Use: No - SURGICAL HISTORY Hx Appendectomy: Yes Hx Cholecystectomy: Yes Hx Tonsillectomy: Yes - ANESTHESIA Hx Anesthesia: Yes Meds Allergies/Adverse Reactions: Allergies Allergy/AdvReac Type Severity Reaction Status Date / Time iodine Allergy RASH Verified 09/05/18 16:52 Penicillins Allergy RASH Verified 09/05/18 16:52 Sulfa (Sulfonamide Allergy RASH Verified 09/05/18 16:52 Antibiotics) tetanus and diphtheria Allergy SWELLING Verified 09/05/18 16:52 toxoids [tetanus & diphtheria toxoids] diphenhydramine AdvReac Tachycardia Verified 09/05/18 16:52 [From Benadryl] Physical Exam - Constitutional Appears: Well, No Acute Distress, Chronically Ill Additional comments: OBESE - Head Exam Head Exam: ATRAUMATIC, NORMAL INSPECTION, NORMOCEPHALIC - Eye Exam Eye Exam: EOMI, Normal appearance, PERRL Pupil Exam: NORMAL ACCOMODATION, PERRL - ENT Exam ENT Exam: Mucous Membranes Moist, Normal Exam - Neck Exam Neck exam: Positive for: Normal Inspection - Respiratory Exam Respiratory Exam: Prolonged Expiratory Phase, Rales, NORMAL BREATHING PATTERN - Cardiovascular Exam Cardiovascular Exam: REGULAR RHYTHM - GI/Abdominal Exam GI & Abdominal Exam: Normal Bowel Sounds, Soft. absent: Tenderness - Rectal Exam Rectal Exam: NORMAL INSPECTION - Extremities Exam Extremities exam: Positive for: normal inspection - Back Exam Back exam: NORMAL INSPECTION - Neurological Exam Neurological exam: Alert, CN II-XII Intact, Normal Gait, Oriented x3, Reflexes Normal - Psychiatric Exam Psychiatric exam: Normal Affect, Normal Mood - Skin Skin Exam: Dry, Intact, Normal Color, Warm Additional comments: REDNESS Results - Vital Signs Recent Vital Signs: Last Vital Signs Temp 97.3 F L 09/06/18 07:52 Pulse 83 09/06/18 07:52 Resp 22 09/06/18 07:52 BP 121/72 09/06/18 07:52 Pulse Ox 95 09/06/18 07:52 Assessment & Plan - Assessment and Plan (Free Text) Assessment: CELLULITIS OF ABD WALL AND BREAST HTN PULMONARY HTN VALVULAR HEART DZ OBESITY COPD CASTILLO SYNDROME Plan: CONTINUE CURRENT RX BIPAP AT HS
[2018-09-07 07:25] LABS: HEMOGLOBIN 12.4 g/dL (12.0-16.0); MEAN CELL VOLUME 80.1 fl (81.0-99.0); MEAN CORPUSCULAR HEMOGLOBIN 24.7 pg (27.0-31.0); MEAN CORPUSCULAR HGB CONC 30.9 g/dL (33.0-37.0); RBC 4.99 Mil/uL (3.80-5.20); RED CELL DISTRIBUTION WIDTH 19.3 % (11.5-14.5); WHITE BLOOD COUNT 4.1 K/uL (4.8-10.8)
[2018-09-07 08:01] LABS: BLOOD UREA NITROGEN 12 mg/dl (7-17); CALCIUM 8.9 mg/dL (8.4-10.2); GFR NON-AFRICAN AMERICAN > 60
--- NOTE | 2018-09-07 09:48 | CP.PCM.PN ---
Subjective - Date & Time of Evaluation Date of Evaluation: 09/07/18 Time of Evaluation: 09:48 - Subjective Subjective: FEELS BETTER TODAY ABLE TO USE BIPAP LAST NIGHT SKIN RASH IMPROVED Objective - Vital Signs/Intake and Output Vital Signs (last 24 hours): Temp Pulse Resp BP Pulse Ox 97.5 F L 88 18 132/76 132 H 09/07/18 08:16 09/07/18 08:16 09/07/18 08:16 09/07/18 08:16 09/07/18 08:16 - Medications Medications: Current Medications Acetaminophen (Tylenol 325mg Tab) 650 mg PO Q4 PRN PRN Reason: Fever >100.4 F Acetaminophen (Tylenol 325mg Tab) 650 mg PO Q6 PRN PRN Reason: Headache Last Admin: 09/07/18 00:51 Dose: 650 mg Albuterol/Ipratropium (Duoneb 3 Mg/0.5 Mg (3 Ml) Ud) 3 ml INH RQ6 PRN PRN Reason: Shortness of Breath Aspirin (Ecotrin) 81 mg PO DAILY [facility] Last Admin: 09/06/18 08:13 Dose: 81 mg Benzocaine/Menthol (Cepacol Sore Throat) 1 leonardo PO Q2 PRN PRN Reason: Sore Throat Docusate Sodium (Colace) 100 mg PO BID [facility] Last Admin: 09/06/18 16:21 Dose: 100 mg Enoxaparin Sodium (Lovenox) 60 mg SC DAILY [facility]; Protocol Last Admin: 09/06/18 08:13 Dose: 60 mg Vancomycin HCl 1 gm/ Sodium (Chloride) 250 mls @ 166.667 mls/hr IVPB Q12H [facility] Last Admin: 09/07/18 05:23 Dose: 166.667 mls/hr Lactic Acid (Lac-Hydrin 12% Cream (140 G)) 1 ea TOP Q12 [facility] Last Admin: 09/06/18 21:51 Dose: 1 u Lactulose (Enulose) 20 gm PO DAILY PRN PRN Reason: Constipation Last Admin: 09/06/18 15:19 Dose: 20 gm Paroxetine HCl (Paxil) 30 mg PO DAILY [facility] - Labs Labs: 09/07/18 06:30 09/07/18 06:30 - Constitutional Appears: No Acute Distress - Head Exam Head Exam: ATRAUMATIC, NORMAL INSPECTION, NORMOCEPHALIC - Eye Exam Eye Exam: EOMI, Normal appearance, PERRL Pupil Exam: NORMAL ACCOMODATION, PERRL - ENT Exam ENT Exam: Mucous Membranes Moist, Normal Exam - Neck Exam Neck Exam: Full ROM, Normal Inspection. absent: Lymphadenopathy - Respiratory Exam Respiratory Exam: Clear to Ausculation Bilateral, NORMAL BREATHING PATTERN - Cardiovascular Exam Cardiovascular Exam: REGULAR RHYTHM, +S1, +S2. absent: Murmur - GI/Abdominal Exam GI & Abdominal Exam: Soft, Normal Bowel Sounds. absent: Tenderness - Rectal Exam Rectal Exam: NORMAL INSPECTION - Extremities Exam Extremities Exam: Full ROM, Normal Capillary Refill, Normal Inspection. absent: Joint Swelling, Pedal Edema - Back Exam Back Exam: NORMAL INSPECTION - Neurological Exam Neurological Exam: Alert, Awake, CN II-XII Intact, Normal Gait, Oriented x3 - Psychiatric Exam Psychiatric exam: Normal Affect, Normal Mood - Skin Skin Exam: Dry, Intact, Normal Color, Warm Assessment and Plan - Assessment and Plan (Free Text) Assessment: CELLULITIS OF SKIN CASTILLO SYNDROME OBESITY PULM HTN Plan: CONTINUE CURRENT RX
[2018-09-07] MEDS: Ammonium Lactate 12% Cream (140 g) TOP SCH ×2 (10:39→20:29)
[2018-09-07] MEDS: Enoxaparin 60 mg Syringe SC SCH (10:40)
[2018-09-08] MEDS: Enoxaparin 60 mg Syringe SC SCH (08:47)
[2018-09-08] MEDS: Ammonium Lactate 12% Cream (140 g) TOP SCH (08:50)
--- NOTE | 2018-09-08 10:57 | CP.PCM.PN ---
Subjective - Date & Time of Evaluation Date of Evaluation: 09/08/18 Time of Evaluation: 10:58 - Subjective Subjective: NO CHEST PAINS/SOB C/O MORE ABD WALL AND BREAST RASH TODAY C/O PEDAL EDEMA Objective - Vital Signs/Intake and Output Vital Signs (last 24 hours): Temp Pulse Resp BP Pulse Ox 98.3 F 75 20 133/81 96 09/08/18 08:42 09/08/18 08:42 09/08/18 08:42 09/08/18 08:42 09/08/18 08:42 - Medications Medications: Current Medications Acetaminophen (Tylenol 325mg Tab) 650 mg PO Q4 PRN PRN Reason: Fever >100.4 F Acetaminophen (Tylenol 325mg Tab) 650 mg PO Q6 PRN PRN Reason: Headache Last Admin: 09/08/18 00:16 Dose: 650 mg Albuterol/Ipratropium (Duoneb 3 Mg/0.5 Mg (3 Ml) Ud) 3 ml INH RQ6 PRN PRN Reason: Shortness of Breath Aspirin (Ecotrin) 81 mg PO DAILY [facility] Last Admin: 09/08/18 08:48 Dose: 81 mg Benzocaine/Menthol (Cepacol Sore Throat) 1 leonardo PO Q2 PRN PRN Reason: Sore Throat Clotrimazole (Lotrimin 1% Cream) 1 applic TOP BID [facility] Docusate Sodium (Colace) 100 mg PO BID [facility] Last Admin: 09/08/18 08:47 Dose: 100 mg Enoxaparin Sodium (Lovenox) 60 mg SC DAILY [facility]; Protocol Last Admin: 09/08/18 08:47 Dose: 60 mg Vancomycin HCl 1 gm/ Sodium (Chloride) 250 mls @ 166.667 mls/hr IVPB Q12H [facility] Last Admin: 09/08/18 05:07 Dose: 166.667 mls/hr Lactulose (Enulose) 20 gm PO Q12 [facility] Last Admin: 09/08/18 08:48 Dose: 20 gm Paroxetine HCl (Paxil) 30 mg PO DAILY [facility] Last Admin: 09/08/18 08:47 Dose: 30 mg - Labs Labs: 09/07/18 06:30 09/07/18 06:30 - Constitutional Appears: No Acute Distress - Head Exam Head Exam: ATRAUMATIC, NORMAL INSPECTION, NORMOCEPHALIC - Eye Exam Eye Exam: EOMI, Normal appearance, PERRL Pupil Exam: NORMAL ACCOMODATION, PERRL - ENT Exam ENT Exam: Mucous Membranes Moist, Normal Exam - Neck Exam Neck Exam: Full ROM, Normal Inspection. absent: Lymphadenopathy - Respiratory Exam Respiratory Exam: Clear to Ausculation Bilateral, NORMAL BREATHING PATTERN - Cardiovascular Exam Cardiovascular Exam: REGULAR RHYTHM, +S1, +S2. absent: Murmur - GI/Abdominal Exam GI & Abdominal Exam: Soft, Normal Bowel Sounds. absent: Tenderness - Rectal Exam Rectal Exam: NORMAL INSPECTION - Extremities Exam Extremities Exam: Full ROM, Normal Capillary Refill, Normal Inspection, Pedal Edema. absent: Joint Swelling - Back Exam Back Exam: NORMAL INSPECTION - Neurological Exam Neurological Exam: Alert, Awake, CN II-XII Intact, Normal Gait, Oriented x3 - Psychiatric Exam Psychiatric exam: Normal Affect, Normal Mood - Skin Skin Exam: Dry, Intact, Normal Color, Warm Assessment and Plan - Assessment and Plan (Free Text) Assessment: CELLULITIS OF ABD WALL AND BREASTS APPEAR TO HAVE IMPROVED DESPITE PT'S COMPLAINTS PEDAL EDEMA--TRACE HTN MORBID OBESITY PULM HTN CASTILLO SYNDROME Plan: SEE ORDERS LABS IN AM
[2018-09-09 07:47] LABS: HEMOGLOBIN 12.4 g/dL (12.0-16.0); MEAN CELL VOLUME 79.6 fl (81.0-99.0); MEAN CORPUSCULAR HEMOGLOBIN 24.7 pg (27.0-31.0); RBC 5.03 Mil/uL (3.80-5.20); WHITE BLOOD COUNT 4.2 K/uL (4.8-10.8)
[2018-09-09 07:54] LABS: BLOOD UREA NITROGEN 12 mg/dl (7-17); CALCIUM 9.1 mg/dL (8.4-10.2); GFR NON-AFRICAN AMERICAN > 60
[2018-09-09] MEDS: Enoxaparin 60 mg Syringe SC SCH (08:37)
--- NOTE | 2018-09-09 08:41 | CP.PCM.PN ---
Subjective - Date & Time of Evaluation Date of Evaluation: 09/09/18 Time of Evaluation: 08:42 - Subjective Subjective: FEELS WEAK NO CHEST PAINS/SOB SKIN RASH IMPROVED Objective - Vital Signs/Intake and Output Vital Signs (last 24 hours): Temp Pulse Resp BP Pulse Ox 97.5 F L 80 20 123/77 95 09/09/18 07:46 09/09/18 07:46 09/09/18 07:46 09/09/18 07:46 09/09/18 07:46 - Medications Medications: Current Medications Acetaminophen (Tylenol 325mg Tab) 650 mg PO Q4 PRN PRN Reason: Fever >100.4 F Acetaminophen (Tylenol 325mg Tab) 650 mg PO Q6 PRN PRN Reason: Headache Last Admin: 09/08/18 23:09 Dose: 650 mg Albuterol/Ipratropium (Duoneb 3 Mg/0.5 Mg (3 Ml) Ud) 3 ml INH RQ6 PRN PRN Reason: Shortness of Breath Aspirin (Ecotrin) 81 mg PO DAILY [facility] Last Admin: 09/08/18 08:48 Dose: 81 mg Benzocaine/Menthol (Cepacol Sore Throat) 1 leonardo PO Q2 PRN PRN Reason: Sore Throat Clotrimazole (Lotrimin 1% Cream) 1 applic TOP BID [facility] Last Admin: 09/09/18 08:37 Dose: 1 applic Docusate Sodium (Colace) 100 mg PO BID [facility] Last Admin: 09/08/18 16:12 Dose: 100 mg Enoxaparin Sodium (Lovenox) 60 mg SC DAILY [facility]; Protocol Last Admin: 09/09/18 08:37 Dose: 60 mg Furosemide (Lasix) 40 mg PO DAILY [facility] Last Admin: 09/08/18 12:40 Dose: 40 mg Vancomycin HCl 1 gm/ Sodium (Chloride) 250 mls @ 166.667 mls/hr IVPB Q12H [facility] Last Admin: 09/09/18 04:37 Dose: 166.667 mls/hr Lactulose (Enulose) 20 gm PO Q12 [facility] Last Admin: 09/09/18 08:36 Dose: 20 gm Paroxetine HCl (Paxil) 30 mg PO DAILY [facility] Last Admin: 09/09/18 08:36 Dose: 30 mg - Labs Labs: 09/09/18 07:10 09/09/18 07:10 - Constitutional Appears: No Acute Distress - Head Exam Head Exam: ATRAUMATIC, NORMAL INSPECTION, NORMOCEPHALIC - Eye Exam Eye Exam: EOMI, Normal appearance, PERRL Pupil Exam: NORMAL ACCOMODATION, PERRL - ENT Exam ENT Exam: Mucous Membranes Moist, Normal Exam - Neck Exam Neck Exam: Full ROM, Normal Inspection. absent: Lymphadenopathy - Respiratory Exam Respiratory Exam: Clear to Ausculation Bilateral, NORMAL BREATHING PATTERN - Cardiovascular Exam Cardiovascular Exam: REGULAR RHYTHM, +S1, +S2. absent: Murmur - GI/Abdominal Exam GI & Abdominal Exam: Soft, Normal Bowel Sounds. absent: Tenderness - Rectal Exam Rectal Exam: NORMAL INSPECTION - Extremities Exam Extremities Exam: Full ROM, Normal Capillary Refill, Normal Inspection. absent: Joint Swelling, Pedal Edema - Back Exam Back Exam: NORMAL INSPECTION - Neurological Exam Neurological Exam: Alert, Awake, CN II-XII Intact, Normal Gait, Oriented x3 - Psychiatric Exam Psychiatric exam: Normal Affect, Normal Mood - Skin Skin Exam: Dry, Intact, Normal Color, Warm Assessment and Plan - Assessment and Plan (Free Text) Assessment: CELLULITIS OF ABD WALL AND BREASTS IMPROVED VALVULAR HEART DZ HTN COPD-IMPROVED CASTILLO SYNDROME PULMONARY HTN MORBID OBESITY Plan: CONTINUE CURRENT RX WILL GIVE 1 MORE DAY OF IV ANTIBIOTIC RX D/C ON SUN IF STABLE
--- NOTE | 2018-09-09 09:41 | CP.PCM.PN ---
Subjective - Date & Time of Evaluation Date of Evaluation: 09/09/18 Time of Evaluation: 09:00 - Subjective Subjective: The patient has been using the CPAP machine here in PCU and indicates that she tolerates it well. Patient is able to get in and out of bed with little assistance. Ambulates with a walker fairly confidently. Her vital signs were stable and there was no evidence of congestive cardiac failure. The patient understands that she needs to consider gastric bypass procedure for weight loss. The Objective - Vital Signs/Intake and Output Vital Signs (last 24 hours): Temp Pulse Resp BP Pulse Ox 97.5 F L 80 20 123/77 95 09/09/18 07:46 09/09/18 07:46 09/09/18 07:46 09/09/18 08:37 09/09/18 07:46 - Medications Medications: Current Medications Acetaminophen (Tylenol 325mg Tab) 650 mg PO Q4 PRN PRN Reason: Fever >100.4 F Acetaminophen (Tylenol 325mg Tab) 650 mg PO Q6 PRN PRN Reason: Headache Last Admin: 09/08/18 23:09 Dose: 650 mg Albuterol/Ipratropium (Duoneb 3 Mg/0.5 Mg (3 Ml) Ud) 3 ml INH RQ6 PRN PRN Reason: Shortness of Breath Aspirin (Ecotrin) 81 mg PO DAILY [facility] Last Admin: 09/09/18 08:40 Dose: 81 mg Benzocaine/Menthol (Cepacol Sore Throat) 1 leonardo PO Q2 PRN PRN Reason: Sore Throat Clotrimazole (Lotrimin 1% Cream) 1 applic TOP BID [facility] Last Admin: 09/09/18 08:37 Dose: 1 applic Docusate Sodium (Colace) 100 mg PO BID [facility] Last Admin: 09/09/18 08:40 Dose: 100 mg Enoxaparin Sodium (Lovenox) 60 mg SC DAILY [facility]; Protocol Last Admin: 09/09/18 08:37 Dose: 60 mg Furosemide (Lasix) 40 mg PO DAILY [facility] Last Admin: 09/09/18 08:37 Dose: 40 mg Vancomycin HCl 1 gm/ Sodium (Chloride) 250 mls @ 166.667 mls/hr IVPB Q12H [facility] Last Admin: 09/09/18 04:37 Dose: 166.667 mls/hr Lactulose (Enulose) 20 gm PO Q12 [facility] Last Admin: 09/09/18 08:36 Dose: 20 gm Paroxetine HCl (Paxil) 30 mg PO DAILY [facility] Last Admin: 09/09/18 08:36 Dose: 30 mg - Labs Labs: 09/09/18 07:10 09/09/18 07:10
[2018-09-10] MEDS: Enoxaparin 60 mg Syringe SC SCH (08:07)
--- NOTE | 2018-09-10 09:11 | CP.PCM.PN ---
Subjective - Date & Time of Evaluation Date of Evaluation: 09/10/18 Time of Evaluation: 09:12 - Subjective Subjective: FEELS BETTER AMBULATING WITH A WALKER VSS CELLULITIS OF BREASTS AND ABD WALL IMPROVING Objective - Vital Signs/Intake and Output Vital Signs (last 24 hours): Temp Pulse Resp BP Pulse Ox 98.5 F 89 18 106/69 92 L 09/10/18 08:11 09/10/18 08:11 09/10/18 08:11 09/10/18 08:11 09/10/18 08:11 - Medications Medications: Current Medications Acetaminophen (Tylenol 325mg Tab) 650 mg PO Q4 PRN PRN Reason: Fever >100.4 F Acetaminophen (Tylenol 325mg Tab) 650 mg PO Q6 PRN PRN Reason: Headache Last Admin: 09/09/18 22:25 Dose: 650 mg Albuterol/Ipratropium (Duoneb 3 Mg/0.5 Mg (3 Ml) Ud) 3 ml INH RQ6 PRN PRN Reason: Shortness of Breath Aspirin (Ecotrin) 81 mg PO DAILY [facility] Last Admin: 09/10/18 08:09 Dose: 81 mg Benzocaine/Menthol (Cepacol Sore Throat) 1 leonardo PO Q2 PRN PRN Reason: Sore Throat Clotrimazole (Lotrimin 1% Cream) 1 applic TOP BID [facility] Last Admin: 09/10/18 08:13 Dose: Not Given Docusate Sodium (Colace) 100 mg PO BID [facility] Last Admin: 09/10/18 08:13 Dose: Not Given Enoxaparin Sodium (Lovenox) 60 mg SC DAILY [facility]; Protocol Last Admin: 09/10/18 08:07 Dose: 60 mg Furosemide (Lasix) 40 mg PO DAILY [facility] Last Admin: 09/10/18 08:10 Dose: 40 mg Vancomycin HCl 1 gm/ Sodium (Chloride) 250 mls @ 166.667 mls/hr IVPB Q12H [facility] Last Admin: 09/10/18 05:54 Dose: 166.667 mls/hr Lactulose (Enulose) 20 gm PO Q12 [facility] Last Admin: 09/10/18 08:10 Dose: Not Given Paroxetine HCl (Paxil) 30 mg PO DAILY [facility] Last Admin: 09/10/18 08:08 Dose: 30 mg - Labs Labs: 09/09/18 07:10 09/09/18 07:10 - Constitutional Appears: No Acute Distress - Head Exam Head Exam: ATRAUMATIC, NORMAL INSPECTION, NORMOCEPHALIC - Eye Exam Eye Exam: EOMI, Normal appearance, PERRL Pupil Exam: NORMAL ACCOMODATION, PERRL - ENT Exam ENT Exam: Mucous Membranes Moist, Normal Exam - Neck Exam Neck Exam: Full ROM, Normal Inspection. absent: Lymphadenopathy - Respiratory Exam Respiratory Exam: Clear to Ausculation Bilateral, NORMAL BREATHING PATTERN - Cardiovascular Exam Cardiovascular Exam: REGULAR RHYTHM, +S1, +S2. absent: Murmur - GI/Abdominal Exam GI & Abdominal Exam: Soft, Normal Bowel Sounds. absent: Tenderness - Rectal Exam Rectal Exam: NORMAL INSPECTION - Extremities Exam Extremities Exam: Full ROM, Normal Capillary Refill, Normal Inspection, Pedal Edema. 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
[2018-09-11 08:11] VITALS: BP 119/73; RESP 18; TEMP 98.6
--- NOTE | 2018-09-11 09:15 | CP.PCM.DIS ---
Provider - Provider Date of Admission: 09/05/18 16:54 Attending physician: Oneil Paige MD Consults: 09/05/18 17:06 Case Management Referral Routine Comment: Physician Instructions: Reason For Exam: Reason for Referral: Discharge Planning 09/05/18 19:51 Cardiology Consult Routine Comment: Consulting Provider: Ace Horton V Consulting Physician: Ace Horton V Reason for Consult: follow up from [address] [place] [address] Time Spent in preparation of Discharge (in minutes): 35 Diagnosis - Discharge Diagnosis (1) Sleep apnea Status: Chronic Comment: improved with bipap therapy. will arrange for bipap/cpap as out pt (2) Pulmonary hypertension Status: Chronic Comment: continue present rx. 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 (3) Obese Status: Chronic (4) COPD (chronic obstructive pulmonary disease) Status: Chronic (5) Cellulitis of abdominal wall Status: Resolved (6) DVT prophylaxis Status: Acute Priority: Low (7) Failure of outpatient treatment Status: Resolved (8) Hypocalcemia Status: Resolved (9) Vertigo Status: Acute Priority: High (10) Depression Status: Chronic Priority: Low Comment: continue current rx (11) Hypertension Status: Chronic Priority: Low Hospital Course - Lab Results Lab Results: Most Recent Lab Values WBC 4.2 K/uL (4.8-10.8) L 09/09/18 07:10 RBC 5.03 Mil/uL (3.80-5.20) 09/09/18 07:10 Hgb 12.4 g/dL (12.0-16.0) 09/09/18 07:10 Hct 40.0 % (34.0-47.0) 09/09/18 07:10 MCV 79.6 fl (81.0-99.0) L 09/09/18 07:10 MCH 24.7 pg (27.0-31.0) L 09/09/18 07:10 MCHC 31.0 g/dL (33.0-37.0) L 09/09/18 07:10 RDW 19.0 % (11.5-14.5) H 09/09/18 07:10 Plt Count 171 K/uL (130-400) 09/09/18 07:10 Sodium 135 mmol/l (132-148) 09/09/18 07:10 Potassium 4.5 MMOL/L (3.6-5.0) 09/09/18 07:10 Chloride 94 mmol/L (98-107) L 09/09/18 07:10 Carbon Dioxide 34 mmol/L (22-30) H 09/09/18 07:10 Anion Gap 12 (10-20) 09/09/18 07:10 BUN 12 mg/dl (7-17) 09/09/18 07:10 Creatinine 0.7 mg/dl (0.7-1.2) 09/09/18 07:10 Est GFR ( Amer) > 60 09/09/18 07:10 Est GFR (Non-Af Amer) > 60 09/09/18 07:10 POC Glucose (mg/dL) 92 mg/dL (65-110) 09/09/18 06:59 Random Glucose 88 mg/dL (65-105) 09/09/18 07:10 Calcium 9.1 mg/dL (8.4-10.2) 09/09/18 07:10 Thyroxine (T4) 5.83 ug/dl (5.5-11.0) 09/07/18 06:30 TSH 3rd Generation 2.54 mIU/ML (0.46-4.68) 09/07/18 06:30 Random Vancomycin 14.2 ug/mL 09/07/18 06:30 Discharge Exam - Head Exam Head Exam: ATRAUMATIC, NORMAL INSPECTION, NORMOCEPHALIC - Eye Exam Eye Exam: EOMI, Normal appearance, PERRL Pupil Exam: NORMAL ACCOMODATION, PERRL - GI/Abdominal Exam GI & Abdominal Exam: Normal Bowel Sounds - Rectal Exam Rectal Exam: NORMAL INSPECTION - Neurological Exam Neurological exam: Alert, CN II-XII Intact, Normal Gait, Oriented x3, Reflexes Normal - Psychiatric Exam Psychiatric exam: Normal Affect, Normal Mood - Skin Skin Exam: Dry, Intact, Normal Color, Warm Discharge Plan - Follow Up Plan Condition: GOOD Disposition: HOME/ ROUTINE Additional Instructions: discharge today follow up with dr paige
[2018-09-11] MEDS: Enoxaparin 60 mg Syringe SC SCH (09:24)
[2018-09-11 11:59] VITALS: PULSE 71; O2SAT 82
== END 2018-09-11 11:00 | disposition home or self-care (01) | DRG 603 ==
LOC: H.TCU 09-05 16:54
PROVIDERS: ADMIT Internal Medicine Pulmonary Disease; ATTEND Internal Medicine Pulmonary Disease
PROC: F07Z9FZ Gait Training/Functional Ambulation Treatment using Assistive, Adaptive, Supportive or Protective Equipment (ICD-10-PCS; principal; 2018-09-05)
PROC: F08Z4FZ Home Management Treatment using Assistive, Adaptive, Supportive or Protective Equipment (ICD-10-PCS; 2018-09-05)
PROC: 3E03329 Introduction of Other Anti-infective into Peripheral Vein, Percutaneous Approach (ICD-10-PCS; 2018-09-05)
PROC: F07M6FZ Therapeutic Exercise Treatment of Musculoskeletal System - Whole Body using Assistive, Adaptive, Supportive or Protective Equipment (ICD-10-PCS; 2018-09-06)
DX: L03.311 Cellulitis of abdominal wall (principal); Z68.43 Body mass index [BMI] 50.0-59.9, adult; G47.33 Obstructive sleep apnea (adult) (pediatric); G47.34 Idiopathic sleep related nonobstructive alveolar hypoventilation; I27.20 Pulmonary hypertension, unspecified; M32.9 Systemic lupus erythematosus, unspecified; E83.51 Hypocalcemia; I10 Essential (primary) hypertension; E11.9 Type 2 diabetes mellitus without complications; E66.01 Morbid (severe) obesity due to excess calories; F32.9 Major depressive disorder, single episode, unspecified; J44.9 Chronic obstructive pulmonary disease, unspecified; R53.1 Weakness; F41.9 Anxiety disorder, unspecified; Z87.891 Personal history of nicotine dependence; Z98.84 Bariatric surgery status; Z88.0 Allergy status to penicillin; Z88.2 Allergy status to sulfonamides; Z91.041 Radiographic dye allergy status

== ENCOUNTER 2018-09-12 14:05 | Observation (INO) | payer MEDICARE, MEDICAID ==
[2018-09-12 14:05] VITALS: BMI 43.4
[2018-09-12] MEDS ORDERED: Sodium Chloride 0.9% 1,000 ML IV STA (14:48)
--- NOTE | 2018-09-12 14:58 | ED PDOC ---
HPI:Nausea, Vomiting, Diarrhea Time Seen by Provider: 09/12/18 14:43 Chief Complaint (Nursing): Abdominal Pain Chief Complaint (Provider): Nausea History Per: Patient History/Exam Limitations: no limitations Onset/Duration Of Symptoms: Days (x2) Current Symptoms Are (Timing): Still Present Associated Symptoms: Nausea. denies: Vomiting, Diarrhea, Chest Pain Additional Complaint(s): 67 year old female presents to the ED complaining of nausea since yesterday which worsened today. Patient reports she had a couple of bites from a sandwich which may have caused nausea. She reports other people had the same sandwich and were fine. She also reports she was discharged from the TCU yesterday after being admitted for cellulitis from a spider bite near the belly button. She states she feels light headed and dizzy. Denies vomiting, diarrhea, or chest pain. PMD: Dr. Reinoso Past Medical History Reviewed: Historical Data, Nursing Documentation, Vital Signs Vital Signs: Last Vital Signs Temp 98 F 09/12/18 14:11 Pulse 77 09/12/18 14:11 Resp 16 09/12/18 14:11 BP 119/69 09/12/18 14:11 Pulse Ox 99 09/12/18 14:11 - Medical History PMH: Anxiety, COPD, Depression, Fractures (right arm), HTN, Sleep Apnea Denies: HIV, Chronic Kidney Disease - Surgical History Surgical History: Appendectomy, Cholecystectomy, Tonsillectomy - Family History Family History: States: Unknown Family Hx - Home Medications Home Medications: Ambulatory Orders Medication Instructions Recorded Aspirin [Ecotrin] 81 mg PO DAILY 09/01/18 Metoprolol Tartrate [Lopressor] 12.5 mg PO DAILY tab 09/04/18 PARoxetine [Paxil] 30 mg PO DAILY tab 09/04/18 Furosemide [Lasix] 40 mg PO DAILY #30 tab 09/11/18 Famotidine [Pepcid] 20 mg PO BID #60 tab 09/14/18 Ondansetron [Zofran] 4 mg PO Q8H PRN 09/14/18 - Allergies Allergies/Adverse Reactions: Allergies Allergy/AdvReac Type Severity Reaction Status Date / Time iodine Allergy RASH Verified 09/12/18 14:11 Penicillins Allergy RASH Verified 09/12/18 14:11 Sulfa (Sulfonamide Allergy RASH Verified 09/12/18 14:11 Antibiotics) tetanus and diphtheria Allergy SWELLING Verified 09/12/18 14:11 toxoids [tetanus & diphtheria toxoids] diphenhydramine AdvReac Tachycardia Verified 09/12/18 14:11 [From Benadryl] Review of Systems ROS Statement: Except As Marked, All Systems Reviewed And Found Negative Cardiovascular: Negative for: Chest Pain Gastrointestinal: Positive for: Nausea. Negative for: Vomiting, Diarrhea Neurological: Positive for: Dizziness Physical Exam - Reviewed Nursing Documentation Reviewed: Yes Vital Signs Reviewed: Yes - Physical Exam Appears: Positive for: Non-toxic, No Acute Distress Head Exam: Positive for: ATRAUMATIC, NORMOCEPHALIC Skin: Positive for: Normal Color, Warm, Dry Eye Exam: Positive for: Normal appearance Neck: Positive for: Normal, Painless ROM Cardiovascular/Chest: Positive for: Regular Rate, Rhythm Respiratory: Positive for: Normal Breath Sounds. Negative for: Wheezing, Respiratory Distress Gastrointestinal/Abdominal: Positive for: Normal Exam, Other (Induration by the breast and periumbilical region consistent with cellulitis which she was treated for) Extremity: Positive for: Normal ROM Neurological/Psych: Positive for: Awake, Alert, Normal Tone - Laboratory Results Result Diagrams: 09/12/18 15:00 09/13/18 16:45 - ECG O2 Sat by Pulse Oximetry: 99 (RA) Pulse Ox Interpretation: Normal Medical Decision Making Medical Decision Making: Initial Impression: Nausea Initial Plan: --ECG --CMP --ED urine dipstick --CBC --PTT --Prothrombin --Sodium chloride 1000mL IV --Zofran 4mg IV --Urinalysis 15:00 Patient signed out to Dr. Urias. Pending labs. ---- Scribe Attestation: Documented by Jimmie Baker acting as a scribe for Liz Barksdale MD. Provider Scribe Attestation: All medical record entries made by the Scribe were at my direction and personally dictated by me. I have reviewed the chart and agree that the record accurately reflects my personal performance of the history, physical exam, medical decision making, and the department course for this patient. I have also personally directed, reviewed, and agree with the discharge instructions and disposition. Disposition - Clinical Impression Clinical Impression: Dizziness, Nausea - Disposition Disposition: Transfer of Care Disposition Time: 15:00 Condition: STABLE Patient Signed Over To: Brenda Urias
--- NOTE | 2018-09-12 15:19 | ED PDOC ---
- Laboratory Results Result Diagrams: 09/12/18 15:00 09/12/18 15:00 - ECG ECG Rhythm: Positive for: Sinus Rhythm (with 1st degree block and low voltage) Rate: 80 O2 Sat by Pulse Oximetry: 99 (RA) Medical Decision Making Medical Decision Makin:00 Patient signed out to this provider from Dr. Barksdale. Pending ER workup, reassessment, and final ER disposition. 1700 Pt reports persistent nausea. Addn'l meds ordered 1920 Pt reports persistent nausea and unable to take reglan due to adverse reaction (tachycardia). DW Dr Reinoso PMD. pt placed under his service for further hospital management Scribe Attestation: Documented by Jimmie Baker acting as a scribe for Brenda Urias MD. Provider Scribe Attestation: All medical record entries made by the Scribe were at my direction and personally dictated by me. I have reviewed the chart and agree that the record accurately reflects my personal performance of the history, physical exam, medical decision making, and the department course for this patient. I have also personally directed, reviewed, and agree with the discharge instructions and disposition. Disposition - Clinical Impression Clinical Impression: Dizziness, Nausea - POA Present On Arrival: Falls Or Trauma (risk) - Disposition Disposition: Hospitalized as Observation Patient Disposition Time: 19:20 Condition: FAIR Forms: [employer] (Y[place]i)
[2018-09-12 15:27] LABS: BASO # 0.1 K/uL (0.0-0.2); EOS % 0.8 % (0.0-4.0); HEMOGLOBIN 12.3 g/dL (12.0-16.0); LYMPH # 0.7 K/uL (1.0-4.3); LYMPH % 13.2 % (20.0-40.0); MEAN CELL VOLUME 79.4 fl (81.0-99.0); MEAN CORPUSCULAR HEMOGLOBIN 24.5 pg (27.0-31.0); MEAN CORPUSCULAR HGB CONC 30.8 g/dL (33.0-37.0); MEAN PLATELET VOLUME 8.4 fl (7.2-11.7); MONO # 0.9 K/uL (0.0-0.8); MONO % 17.6 % (0.0-10.0); NEUT # 3.6 K/uL (1.8-7.0); NEUT % 67.4 % (50.0-75.0); NRBC % 0.1 % (0.0-0.0); RBC 5.03 Mil/uL (3.80-5.20); WHITE BLOOD COUNT 5.3 K/uL (4.8-10.8)
[2018-09-12 15:41] LABS: INR 1.3; PROTHROMBIN TIME 14.6 Seconds (9.8-13.1)
[2018-09-12 15:44] LABS: PARTIAL THROMBOPLASTIN TIME 38.8 Seconds (25.6-37.1)
[2018-09-12 15:58] LABS: ALT/SGPT 34 U/L (9-52); AST/SGOT 59 U/L (14-36); BLOOD UREA NITROGEN 16 mg/dl (7-17); CALCIUM 9.1 mg/dL (8.4-10.2); GFR NON-AFRICAN AMERICAN > 60
--- NOTE | 2018-09-12 17:05 | CARD ---
APPROVED REPORT Date of service: 09/12/2018 EKG Measurement Heart [id number] <Conclusion> Sinus rhythm with 1st degree AV block with premature supraventricular complexes Rightward axis Low voltage QRS Cannot rule out Anterior infarct, age undetermined Abnormal ECG
[2018-09-12 19:28] LABS: TROPONIN I 0.016 ng/mL (0.00-0.120)
[2018-09-12] MEDS ORDERED: Dextrose 5%/0.45% NS 1,000 ML IV SCH (23:30)
--- NOTE | 2018-09-13 07:59 | RAD ---
Date of service: 09/12/2018 HISTORY: sob COMPARISON: Frontal chest radiograph 09/01/2018. TECHNIQUE: 1 view obtained. FINDINGS: LUNGS: No active pulmonary disease. PLEURA: No significant pleural effusion identified, no pneumothorax apparent. CARDIOVASCULAR: No aortic atherosclerotic calcification present. Stable cardiomegaly. No pulmonary vascular congestion. OSSEOUS STRUCTURES: No significant abnormalities. VISUALIZED UPPER ABDOMEN: Normal. OTHER FINDINGS: None. IMPRESSION: Stable cardiomegaly. No acute pulmonary vascular congestion or acute pulmonary disease appreciable.
[2018-09-13] MEDS ORDERED: Albuterol-Ipratrop 3 mg / 0.5 (3 ml) UD INH PRN (12:13)
--- NOTE | 2018-09-13 12:16 | CP.PCM.HP ---
History of Present Illness - History of Present Illness History of Present Illness: 67 YR OLD FEMALE ADMITTED BECAUSE OF INTRACTABLE NAUSEA AND VOMITING X 1 DAY AFTER EATING A TUNA SANDWICH.RECENTLY D/DONATO FROM HOSPITAL AFTER A PROLONGED BSTAY--TREATED FOR CELLULITIS OF ABD WALL,HTN AND PULMONARY HTN STILL NAUSEOUS Present on Admission - Present on Admission Any Indicators Present on Admission: No Past Patient History - Infectious Disease Hx of Infectious Diseases: None - Tetanus Immunizations Tetanus Immunization: Unknown - Past Medical History & Family History Past Medical History?: Yes - Past Social History Smoking Status: Light Smoker < 10 Cigarettes Daily - CARDIAC Hx Cardiac Disorders: Yes Hx Hypertension: Yes - PULMONARY Hx Respiratory Disorders: Yes Hx Chronic Obstructive Pulmonary Disease (COPD): Yes Hx Sleep Apnea: Yes - NEUROLOGICAL Hx Neurological Disorder: No (unknown) - HEENT Hx HEENT Problems: No - RENAL Hx Chronic Kidney Disease: No - ENDOCRINE/METABOLIC Hx Endocrine Disorders: Yes Hx Diabetes Mellitus Type 2: Yes (borderline) Hx Systemic Lupus Erythematosus: Yes - HEMATOLOGICAL/ONCOLOGICAL Hx Human Immunodeficiency Virus (HIV): No - INTEGUMENTARY Hx Dermatological Problems: No - MUSCULOSKELETAL/RHEUMATOLOGICAL Hx Musculoskeletal Disorders: Yes Hx Falls: No Hx Fractures: Yes (right arm) - GASTROINTESTINAL Hx Gastrointestinal Disorders: Yes Other/Comment: Hx of lap band surgery, has since been removed. - GENITOURINARY/GYNECOLOGICAL Hx Genitourinary Disorders: No - PSYCHIATRIC Hx Psychophysiologic Disorder: Yes Hx Anxiety: Yes Hx Depression: Yes Hx Substance Use: No - SURGICAL HISTORY Hx Surgeries: Yes Hx Appendectomy: Yes Hx Cholecystectomy: Yes Hx Tonsillectomy: Yes - ANESTHESIA Hx Anesthesia: Yes Hx Anesthesia Reactions: No Hx Malignant Hyperthermia: No Has any member of the family had a problem w/ anesthesia?: No Meds Allergies/Adverse Reactions: Allergies Allergy/AdvReac Type Severity Reaction Status Date / Time iodine Allergy RASH Verified 09/12/18 14:11 Penicillins Allergy RASH Verified 09/12/18 14:11 Sulfa (Sulfonamide Allergy RASH Verified 09/12/18 14:11 Antibiotics) tetanus and diphtheria Allergy SWELLING Verified 09/12/18 14:11 toxoids [tetanus & diphtheria toxoids] diphenhydramine AdvReac Tachycardia Verified 09/12/18 14:11 [From Benadryl] Physical Exam - Constitutional Additional comments: NAUSEOUS - Head Exam Head Exam: ATRAUMATIC, NORMAL INSPECTION, NORMOCEPHALIC - Eye Exam Eye Exam: EOMI, Normal appearance, PERRL Pupil Exam: NORMAL ACCOMODATION, PERRL - ENT Exam ENT Exam: Mucous Membranes Moist, Normal Exam - Neck Exam Neck exam: Positive for: Normal Inspection - Respiratory Exam Respiratory Exam: Clear to Auscultation Bilateral, NORMAL BREATHING PATTERN - Cardiovascular Exam Cardiovascular Exam: REGULAR RHYTHM - GI/Abdominal Exam GI & Abdominal Exam: Normal Bowel Sounds, Soft. absent: Tenderness - Rectal Exam Rectal Exam: NORMAL INSPECTION - Extremities Exam Extremities exam: Positive for: normal inspection - Back Exam Back exam: NORMAL INSPECTION - Neurological Exam Neurological exam: Alert, CN II-XII Intact, Normal Gait, Oriented x3, Reflexes Normal - Psychiatric Exam Psychiatric exam: Normal Affect, Normal Mood - Skin Skin Exam: Dry, Intact, Normal Color, Warm Results - Vital Signs Recent Vital Signs: Last Vital Signs Temp 97.3 F L 09/13/18 09:00 Pulse 87 09/13/18 09:00 Resp 20 09/13/18 09:00 BP 100/67 09/13/18 09:00 Pulse Ox 94 L 09/13/18 09:00 - Labs Result Diagrams: 09/12/18 15:00 09/12/18 15:00 Labs: Laboratory Results - last 24 hr 09/12/18 09/12/18 09/12/18 14:39 15:00 15:00 WBC 5.3 RBC 5.03 Hgb 12.3 Hct 40.0 MCV 79.4 L MCH 24.5 L MCHC 30.8 L RDW 20.0 H Plt Count 193 MPV 8.4 Neut % (Auto) 67.4 Lymph % (Auto) 13.2 L Johnson % (Auto) 17.6 H Eos % (Auto) 0.8 Baso % (Auto) 1.0 Neut # (Auto) 3.6 Lymph # (Auto) 0.7 L Johnson # (Auto) 0.9 H Eos # (Auto) 0.0 Baso # (Auto) 0.1 PT INR APTT Sodium 136 Potassium 5.4 H Chloride 94 L Carbon Dioxide 33 H Anion Gap 14 BUN 16 Creatinine 0.9 Est GFR ( Amer) > 60 Est GFR (Non-Af Amer) > 60 POC Glucose (mg/dL) 103 Random Glucose 92 Calcium 9.1 Total Bilirubin 1.8 H AST 59 H D ALT 34 Alkaline Phosphatase 59 Troponin I NT-Pro-B Natriuret Pep Total Protein 8.2 Albumin 4.0 Globulin 4.2 H Albumin/Globulin Ratio 1.0 09/12/18 09/12/18 15:00 18:45 WBC RBC Hgb Hct MCV MCH MCHC RDW Plt Count MPV Neut % (Auto) Lymph % (Auto) Johnson % (Auto) Eos % (Auto) Baso % (Auto) Neut # (Auto) Lymph # (Auto) Johnson # (Auto) Eos # (Auto) Baso # (Auto) PT 14.6 H INR 1.3 APTT 38.8 H Sodium Potassium Chloride Carbon Dioxide Anion Gap BUN Creatinine Est GFR ( Amer) Est GFR (Non-Af Amer) POC Glucose (mg/dL) Random Glucose Calcium Total Bilirubin AST ALT Alkaline Phosphatase Troponin I 0.0160 NT-Pro-B Natriuret Pep 2630 H Total Protein Albumin Globulin Albumin/Globulin Ratio Assessment & Plan - Assessment and Plan (Free Text) Assessment: INTRACTABLE NAUSEA AND VOMITING HX OF COPD AND PULMONARY HTN HX OF SLEEP APNEA MORBID OBESITY HTN Plan: OBSERVE IN HOSPITAL ADVANCE DIET IF NAUSEA/VOMITING RESOLVES---IV PEPCID AND FLUIDS-- IV ZOFRAN D/C HOME IN AM IF STABLE - Date & Time Date: 09/13/18 Time: 12:19
[2018-09-13] MEDS: Enoxaparin 40 mg Syringe SC SCH (14:44)
[2018-09-13 18:34] LABS: ALBUMIN 3.8 g/dL (3.5-5.0); CALCIUM 9.1 mg/dL (8.4-10.2)
[2018-09-14 07:58] VITALS: BP 131/86; PULSE 88; RESP 19; TEMP 97.5
[2018-09-14] MEDS: Enoxaparin 40 mg Syringe SC SCH (09:19)
--- NOTE | 2018-09-14 11:28 | CP.PCM.DIS ---
Provider - Provider Date of Admission: 09/12/18 19:25 Attending physician: Oneil Grace MD Time Spent in preparation of Discharge (in minutes): 35 Diagnosis - Discharge Diagnosis (1) Vomiting Status: Acute (2) Nausea Status: Acute (3) GERD (gastroesophageal reflux disease) Status: Acute (4) COPD (chronic obstructive pulmonary disease) Status: Chronic (5) Hypertension Status: Chronic Priority: Low (6) Pulmonary hypertension Status: Chronic (7) Sleep apnea Status: Chronic Hospital Course - Lab Results Lab Results: Most Recent Lab Values WBC 5.3 K/uL (4.8-10.8) 09/12/18 15:00 RBC 5.03 Mil/uL (3.80-5.20) 09/12/18 15:00 Hgb 12.3 g/dL (12.0-16.0) 09/12/18 15:00 Hct 40.0 % (34.0-47.0) 09/12/18 15:00 MCV 79.4 fl (81.0-99.0) L 09/12/18 15:00 MCH 24.5 pg (27.0-31.0) L 09/12/18 15:00 MCHC 30.8 g/dL (33.0-37.0) L 09/12/18 15:00 RDW 20.0 % (11.5-14.5) H 09/12/18 15:00 Plt Count 193 K/uL (130-400) 09/12/18 15:00 MPV 8.4 fl (7.2-11.7) 09/12/18 15:00 Neut % (Auto) 67.4 % (50.0-75.0) 09/12/18 15:00 Lymph % (Auto) 13.2 % (20.0-40.0) L 09/12/18 15:00 Humphreys % (Auto) 17.6 % (0.0-10.0) H 09/12/18 15:00 Eos % (Auto) 0.8 % (0.0-4.0) 09/12/18 15:00 Baso % (Auto) 1.0 % (0.0-2.0) 09/12/18 15:00 Neut # (Auto) 3.6 K/uL (1.8-7.0) 09/12/18 15:00 Lymph # (Auto) 0.7 K/uL (1.0-4.3) L 09/12/18 15:00 Humphreys # (Auto) 0.9 K/uL (0.0-0.8) H 09/12/18 15:00 Eos # (Auto) 0.0 K/uL (0.0-0.7) 09/12/18 15:00 Baso # (Auto) 0.1 K/uL (0.0-0.2) 09/12/18 15:00 PT 14.6 Seconds (9.8-13.1) H 09/12/18 15:00 INR 1.3 09/12/18 15:00 APTT 38.8 Seconds (25.6-37.1) H 09/12/18 15:00 Sodium 136 mmol/l (132-148) 09/13/18 16:45 Potassium 4.2 MMOL/L (3.6-5.0) 09/13/18 16:45 Chloride 93 mmol/L (98-107) L 09/13/18 16:45 Carbon Dioxide 33 mmol/L (22-30) H 09/13/18 16:45 Anion Gap 14 (10-20) 09/13/18 16:45 BUN 21 mg/dl (7-17) H 09/13/18 16:45 Creatinine 1.3 mg/dl (0.7-1.2) H 09/13/18 16:45 Est GFR ( Amer) 50 09/13/18 16:45 Est GFR (Non-Af Amer) 41 09/13/18 16:45 POC Glucose (mg/dL) 103 mg/dL (65-110) 09/12/18 14:39 Random Glucose 98 mg/dL (65-105) 09/13/18 16:45 Calcium 9.1 mg/dL (8.4-10.2) 09/13/18 16:45 Total Bilirubin 1.7 mg/dl (0.2-1.3) H 09/13/18 16:45 AST 38 U/L (14-36) H D 09/13/18 16:45 ALT 37 U/L (9-52) 09/13/18 16:45 Alkaline Phosphatase 86 U/L (38-126) 09/13/18 16:45 Troponin I 0.0160 ng/mL (0.00-0.120) 09/12/18 18:45 NT-Pro-B Natriuret Pep 2630 pg/ml (0-900) H 09/12/18 18:45 Total Protein 7.7 G/DL (6.3-8.2) 09/13/18 16:45 Albumin 3.8 g/dL (3.5-5.0) 09/13/18 16:45 Globulin 3.9 gm/dL (2.2-3.9) 09/13/18 16:45 Albumin/Globulin Ratio 1.0 (1.0-2.1) 09/13/18 16:45 - Hospital Course Hospital Course: NAUSEA AND VOMITING RESOLVED VSS Discharge Exam - Head Exam Head Exam: ATRAUMATIC, NORMAL INSPECTION, NORMOCEPHALIC - Eye Exam Eye Exam: EOMI, Normal appearance, PERRL Pupil Exam: NORMAL ACCOMODATION, PERRL - GI/Abdominal Exam GI & Abdominal Exam: Normal Bowel Sounds - Rectal Exam Rectal Exam: NORMAL INSPECTION - Neurological Exam Neurological exam: Alert, CN II-XII Intact, Normal Gait, Oriented x3, Reflexes Normal - Psychiatric Exam Psychiatric exam: Normal Affect, Normal Mood - Skin Skin Exam: Dry, Intact, Normal Color, Warm Discharge Plan - Follow Up Plan Condition: FAIR Disposition: HOME/ ROUTINE Instructions: Nausea and Vomiting, Adult (DC) Additional Instructions: ELEVATE JOSE ELIAS. LOWER EXT. 02 3L VIA NASAL CANULA. D/C HOME ON PEPCID AND ZOFRAN BLAND DIET FOLLOW UP WITH DR GRACE
[2018-09-16 16:29] VITALS: O2SAT 99
== END 2018-09-14 13:25 | disposition home or self-care (01) ==
LOC: H.ER 14:05 → H.ERHOLD 19:25 → H.MEDSURG1 22:35
PROVIDERS: ADMIT Internal Medicine Pulmonary Disease; ATTEND Internal Medicine Pulmonary Disease
DX: R11.2 Nausea with vomiting, unspecified (principal); E11.9 Type 2 diabetes mellitus without complications; E66.01 Morbid (severe) obesity due to excess calories; G47.30 Sleep apnea, unspecified; I10 Essential (primary) hypertension; I27.20 Pulmonary hypertension, unspecified; J44.9 Chronic obstructive pulmonary disease, unspecified; K21.9 Gastro-esophageal reflux disease without esophagitis; M32.9 Systemic lupus erythematosus, unspecified; Z79.82 Long term (current) use of aspirin; Z87.891 Personal history of nicotine dependence; Z90.49 Acquired absence of other specified parts of digestive tract; Z98.84 Bariatric surgery status; F32.9 Major depressive disorder, single episode, unspecified; F41.9 Anxiety disorder, unspecified; Z79.899 Other long term (current) drug therapy; R19.7 Diarrhea, unspecified; R42 Dizziness and giddiness; Z68.41 Body mass index [BMI] 40.0-44.9, adult
CPT/HCPCS: 36415; 71045; 80053; 82948; 83880; 84484; 85025; 85610; 85730; 93005; 96374; 99285; G0378; J1650; J2405; J7030; J7042

== ENCOUNTER 2018-09-14 19:51 | Inpatient (IN) | payer MEDICARE, MEDICAID ==
[2018-09-14 21:09] LABS: INR 1.6; PROTHROMBIN TIME 17.9 Seconds (9.8-13.1)
--- NOTE | 2018-09-14 21:09 | ED PDOC ---
HPI: Neurologic - General Time Seen by Provider: 09/14/18 19:58 Chief Complaint (Nursing): Trauma Chief Complaint (Provider): weakness and dizziness Source: patient Exam Limitations: no limitations - History of Present Illness Timing/Duration: other (recurrent ) Associated Symptoms: weakness. denies: fever/chills, loss of consciousness, vision changes Allergies/Adverse Reactions: Allergies iodine Allergy (Verified 09/12/18 14:11) RASH Penicillins Allergy (Verified 09/12/18 14:11) RASH Sulfa (Sulfonamide Antibiotics) Allergy (Verified 09/12/18 14:11) RASH tetanus and diphtheria toxoids [tetanus & diphtheria toxoids] Allergy (Verified 09/12/18 14:11) SWELLING diphenhydramine [From Benadryl] Adverse Reaction (Verified 09/12/18 14:11) Tachycardia Home Medications: Ambulatory Orders Aspirin [Ecotrin] 81 mg PO DAILY 09/01/18 Metoprolol Tartrate [Lopressor] 12.5 mg PO DAILY tab 09/04/18 PARoxetine [Paxil] 30 mg PO DAILY tab 09/04/18 Furosemide [Lasix] 40 mg PO DAILY #30 tab 09/11/18 Famotidine [Pepcid] 20 mg PO BID #60 tab 09/14/18 Ondansetron [Zofran] 4 mg PO Q8H PRN 09/14/18 Additional Complaint(s): 67 year old female presents to the ED for an evaluation of weakness and dizziness onset today. Patient was discharged at 1PM today from the hospital. While at home, she felt dizziness, light headedness and nauseous for which she was hospitalized for these recurrent symptoms and at home, she fell down, hitting her head. Patient denies loss of consciousness. She has increased swelling and redness to her abdomen and breast. She has received treatment for cellulitis this month. Currently, she has bilateral shoulder pain, nausea and dizziness. Otherwise, she denies fever, focal weakness nor blurry vision. PMD: Dr. Reinoso Past Medical History Reviewed: Historical Data, Nursing Documentation, Vital Signs Vital Signs: Last Vital Signs Temp 99.4 F 09/14/18 19:55 Pulse 88 09/14/18 19:55 Resp 22 09/14/18 19:55 BP 100/61 09/14/18 19:55 Pulse Ox 84 L 09/14/18 19:55 - Medical History PMH: Anxiety, COPD, Depression, Fractures (right arm), HTN, Sleep Apnea Denies: HIV, Chronic Kidney Disease - Surgical History Surgical History: Appendectomy, Cholecystectomy, Tonsillectomy - Family History Family History: States: Unknown Family Hx - Home Medications Home Medications: Ambulatory Orders Medication Instructions Recorded Aspirin [Ecotrin] 81 mg PO DAILY 09/01/18 Metoprolol Tartrate [Lopressor] 12.5 mg PO DAILY tab 09/04/18 PARoxetine [Paxil] 30 mg PO DAILY tab 09/04/18 Furosemide [Lasix] 40 mg PO DAILY #30 tab 09/11/18 Famotidine [Pepcid] 20 mg PO BID #60 tab 09/14/18 Ondansetron [Zofran] 4 mg PO Q8H PRN 09/14/18 - Allergies Allergies/Adverse Reactions: Allergies Allergy/AdvReac Type Severity Reaction Status Date / Time iodine Allergy RASH Verified 09/12/18 14:11 Penicillins Allergy RASH Verified 09/12/18 14:11 Sulfa (Sulfonamide Allergy RASH Verified 09/12/18 14:11 Antibiotics) tetanus and diphtheria Allergy SWELLING Verified 09/12/18 14:11 toxoids [tetanus & diphtheria toxoids] diphenhydramine AdvReac Tachycardia Verified 09/12/18 14:11 [From Benadryl] Review of Systems ROS Statement: Except As Marked, All Systems Reviewed And Found Negative (As per HPI, otherwise negative) Constitutional: Negative for: Fever Eyes: Negative for: Vision Change Cardiovascular: Positive for: Light Headedness Gastrointestinal: Positive for: Nausea Musculoskeletal: Positive for: Shoulder Pain (bilateral) Skin: Positive for: Other (swelling and redness to stomach and breast) Neurological: Positive for: Dizziness. Negative for: Other (focal weakness, loss of consciouness ) Physical Exam - Reviewed Nursing Documentation Reviewed: Yes Vital Signs Reviewed: Yes - Physical Exam Appears: Positive for: No Acute Distress (tired) Head Exam: Positive for: ATRAUMATIC, NORMAL INSPECTION, NORMOCEPHALIC Skin: Positive for: Warm, Dry Eye Exam: Positive for: EOMI, PERRL ENT: Negative for: Pharyngeal Erythema, Tonsillar Exudate Neck: Positive for: Painless ROM, Supple Cardiovascular/Chest: Positive for: Regular Rate, Rhythm, Other (bilateral breast periareolar demonstrates induration and erythema). Negative for: Murmur Respiratory: Positive for: Normal Breath Sounds. Negative for: Respiratory Distress Gastrointestinal/Abdominal: Positive for: Soft, Tenderness, Other (Skin on lower abdomen demonstrates induration, erythema and tenderness ) Back: Positive for: Normal Inspection. Negative for: Decreased ROM Extremity: Positive for: Other (leg edema ) Lymphatic: Negative for: Adenopathy Neurological/Psych: Positive for: Awake, Alert, Normal Tone, Oriented (x3). Negative for: Motor/Sensory Deficits - Laboratory Results Result Diagrams: 09/15/18 06:10 09/15/18 06:10 - ECG O2 Sat by Pulse Oximetry: 84 (RA) Pulse Ox Interpretation: Normal Medical Decision Making Medical Decision Making: Time: 20:21 Impression: dizziness with frequent falls, abdominal wall and breast cellulitis vs anasarca Plan: Type and screen BBK Head w/o contrast CT EKG B-type natriuretic peptide CMP Creatine phosphokinase Lactic acid Phosphorus Troponin CBC w/ Differential PTT Prothrombin time Chest portable [RAD] Blood culture IV insertion 21:27 CLINICAL HISTORY: Dizzy. TECHNIQUE: Multiple axial CT images were obtained through the brain without IV contrast material. COMMENTS: There is normal configuration of sella turcica. There are no intra or extra- axial collections. There is no mass effect or midline shift. There is no evidence of hematoma formation. No hydrocephalus is present. The ventricles are symmetrical. No abnormal calcifications are present. There is diffuse age-appropriate cerebellar and cerebral atrophy with proportionally dilated ventricles and cortical sulci. There are bilateral periventricular and subcortical white matter hypolucencies compatible with mild chronic microvascular disease. Otherwise, no significant focal abnormalities are seen either in the posterior fossa or supratentorial compartment. IMPRESSION: 1. Age-appropriate cerebellar and cerebral atrophy. 2. Mild chronic microvascular disease. 3. No evidence of acute intracranial pathology. 21:30 Labs with no emergently significant abnormalities. Discussed with Dr. Reinoso and patient will be hospitalized with intractable dizziness, frequent fall and head injury. Scribe Attestation: Documented by Diane Bhardwaj, acting as a scribe for Brenda Urias MD. Provider Scribe Attestation: All medical record entries made by the Scribe were at my direction and personally dictated by me. I have reviewed the chart and agree that the record accurately reflects my personal performance of the history, physical exam, medical decision making, and the department course for this patient. I have also personally directed, reviewed, and agree with the discharge instructions and disposition. Disposition - Clinical Impression Clinical Impression: Dizziness, Head injury, Balance problem Counseled Patient/Family Regarding: Studies Performed, Diagnosis - Disposition Disposition Time: 23:00 Condition: FAIR - Pt Status Changed To: Hospital Disposition Of: Inpatient - Admit Certification Admit to Inpatient:: After my assessment, the patient will require hospitalization for at least two midnights. This is because of the severity of symptoms shown, intensity of services needed, and/or the medical risk in this patient being treated as an outpatient. - POA Present On Arrival: Falls Or Trauma
[2018-09-14 21:12] LABS: PARTIAL THROMBOPLASTIN TIME 43.3 Seconds (25.6-37.1)
[2018-09-14 21:14] LABS: BASO # 0.1 K/uL (0.0-0.2); BASO % 1.2 % (0.0-2.0); HEMOGLOBIN 12.5 g/dL (12.0-16.0); LYMPH # 0.7 K/uL (1.0-4.3); LYMPH % 13.8 % (20.0-40.0); MEAN CELL VOLUME 80.6 fl (81.0-99.0); MEAN CORPUSCULAR HEMOGLOBIN 25.1 pg (27.0-31.0); MEAN CORPUSCULAR HGB CONC 31.2 g/dL (33.0-37.0); MEAN PLATELET VOLUME 8.5 fl (7.2-11.7); MONO # 0.9 K/uL (0.0-0.8); MONO % 18.5 % (0.0-10.0); NEUT # 3.3 K/uL (1.8-7.0); NEUT % 65.5 % (50.0-75.0); NRBC % 0.4 % (0.0-0.0); RBC 4.98 Mil/uL (3.80-5.20); RED CELL DISTRIBUTION WIDTH 20.2 % (11.5-14.5); WHITE BLOOD COUNT 5.1 K/uL (4.8-10.8)
[2018-09-14 21:17] LABS: CALCIUM 9.2 mg/dL (8.4-10.2)
[2018-09-14 21:27] LABS: TROPONIN I 0.014 ng/mL (0.00-0.120)
[2018-09-15 00:47] VITALS: BMI 55.5
[2018-09-15 07:42] LABS: HEMOGLOBIN 12.6 g/dL (12.0-16.0); MEAN CELL VOLUME 81.1 fl (81.0-99.0); MEAN CORPUSCULAR HEMOGLOBIN 25.1 pg (27.0-31.0); MEAN CORPUSCULAR HGB CONC 30.9 g/dL (33.0-37.0); RBC 5.05 Mil/uL (3.80-5.20); RED CELL DISTRIBUTION WIDTH 20.1 % (11.5-14.5); WHITE BLOOD COUNT 4.9 K/uL (4.8-10.8)
[2018-09-15 08:23] LABS: CALCIUM 9.4 mg/dL (8.4-10.2)
[2018-09-15] MEDS: Enoxaparin 40 mg Syringe SC SCH (10:28)
--- NOTE | 2018-09-15 11:06 | CP.PCM.PN ---
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 SHE WAS JUST DISCHARGED FROM HOSPITAL EARLY ON THE DAY OF ADMISSION AFTER RX FOR INTRACTABLE VOMITING HX OF COPD/HTN/CASTILLO SYNDROME/S/P GASTRIC BYPASS SURGERY /MORBID OBESITY/CELLULITIS OF ABD WALL AND BREASTS/DEPRESSION Objective - Vital Signs/Intake and Output Vital Signs (last 24 hours): Temp Pulse Resp BP Pulse Ox 97.7 F 75 20 97/65 L 94 L 09/15/18 07:51 09/15/18 08:41 09/15/18 07:51 09/15/18 08:41 09/15/18 07:51 - Medications Medications: Current Medications Acetaminophen (Tylenol 325mg Tab) 650 mg PO Q4 PRN PRN Reason: Pain, moderate (4-7) Albuterol/Ipratropium (Duoneb 3 Mg/0.5 Mg (3 Ml) Ud) 3 ml INH RQ6 [facility] Aspirin (Ecotrin) 81 mg PO DAILY [facility] Last Admin: 09/15/18 08:39 Dose: 81 mg Enoxaparin Sodium (Lovenox) 40 mg SC DAILY [facility]; Protocol Last Admin: 09/15/18 10:28 Dose: 40 mg Famotidine (Pepcid) 20 mg PO BID [facility] Last Admin: 09/15/18 08:42 Dose: 20 mg Metoprolol Tartrate (Lopressor) 12.5 mg PO DAILY [facility] Last Admin: 09/15/18 08:41 Dose: 12.5 mg Ondansetron HCl (Zofran Tab) 4 mg PO Q8H PRN PRN Reason: Nausea/Vomiting Paroxetine HCl (Paxil) 30 mg PO DAILY [facility] Last Admin: 09/15/18 08:42 Dose: 30 mg - Labs Labs: 09/15/18 06:10 09/15/18 06:10 PT 17.9 Seconds (9.8-13.1) H 09/14/18 20:57 INR 1.6 09/14/18 20:57 APTT 43.3 Seconds (25.6-37.1) H 09/14/18 20:57 - Constitutional Appears: No Acute Distress - Head Exam Head Exam: ATRAUMATIC, NORMAL INSPECTION, NORMOCEPHALIC - Eye Exam Eye Exam: EOMI, Normal appearance, PERRL Pupil Exam: NORMAL ACCOMODATION, PERRL - ENT Exam ENT Exam: Mucous Membranes Moist, Normal Exam - Neck Exam Neck Exam: Full ROM, Normal Inspection. absent: Lymphadenopathy - Respiratory Exam Respiratory Exam: Decreased Breath Sounds, Clear to Ausculation Bilateral, Prolonged Expiratory Phase, NORMAL BREATHING PATTERN - Cardiovascular Exam Cardiovascular Exam: REGULAR RHYTHM, +S1, +S2. absent: Murmur - GI/Abdominal Exam GI & Abdominal Exam: Soft, Normal Bowel Sounds. absent: Tenderness - Rectal Exam Rectal Exam: NORMAL INSPECTION - Extremities Exam Extremities Exam: Full ROM, Normal Capillary Refill, Normal Inspection, Pedal Edema. absent: Joint Swelling - Back Exam Back Exam: NORMAL INSPECTION - Neurological Exam Neurological Exam: Alert, Awake, CN II-XII Intact, Normal Gait, Oriented x3 - Psychiatric Exam Psychiatric exam: Normal Affect, Normal Mood - Skin Skin Exam: Dry, Intact, Rash, Warm Additional comments: RASH OF BREASTS--ERYTEMATOUS Assessment and Plan - Assessment and Plan (Free Text) Assessment: SYNCOPE CASTILLO SYNDROME HYPERTENSION MORBID OBESITY COPD Plan: NEUROLOGY AND CARDIOLOGY EVALUATION ADVISED SUBACUTE CARE BUT DECLINED
--- NOTE | 2018-09-15 11:25 | CT ---
Date of service: 09/14/2018 PROCEDURE: CT HEAD WITHOUT CONTRAST. HISTORY: Dizzy COMPARISON: Comparison made with prior CT scan of the brain 515 2018. TECHNIQUE: Axial computed tomography images were obtained through the head/brain without intravenous contrast. Radiation dose: Total exam DLP = 1141.06 mGy-cm. This CT exam was performed using one or more of the following dose reduction techniques: Automated exposure control, adjustment of the mA and/or kV according to patient size, and/or use of iterative reconstruction technique. FINDINGS: HEMORRHAGE: No acute parenchymal, subarachnoid or extra-axial hemorrhage. BRAIN: Mild diffuse/confluent chronic periventricular white matter ischemic changes seen extending peripherally into deep white matter both cerebral hemispheres. Additionally, there also at least 1 chronic appearing left basal nuclei lacunar type infarct. Note possibility of a small hyperacute infarct cannot be excluded on this study. Mild moderate generalized volume loss. VENTRICLES: No obstructive hydrocephalus. CALVARIUM: Calvarium intact PARANASAL SINUSES: Mucosal thickening seen inferior margins both maxillary antra. Note is made of a defect within the anterior inferior cartilaginous nasal septum.. 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 No inflammatory changes. OTHER FINDINGS: None. IMPRESSION: No acute intracranial hemorrhage. Mild chronic periventricular white matter ischemic changes with a at least 1 chronic left basal ganglia lacunar type infarct Mild-moderate generalized volume loss.
[2018-09-15] MEDS: Mycolog II OINT TOP SCH ×2 (12:16→16:47)
[2018-09-15] MEDS: Albuterol-Ipratrop 3 mg / 0.5 (3 ml) UD INH SCH ×2 (13:35→20:08)
--- NOTE | 2018-09-15 13:37 | RAD ---
Date of service: 09/14/2018 HISTORY: Dizziness COMPARISON: Comparison chest 09/12/2018. TECHNIQUE: 1 view obtained. FINDINGS: LUNGS: Poor inspiration with low lung volumes common crowded bronchovascular markings mild bibasilar atelectasis. PLEURA: No significant pleural effusion identified, no pneumothorax apparent. CARDIOVASCULAR: No aortic atherosclerotic calcification present. Heart is enlarged with widened mediastinum in part due to poor inspiration with low lung volumes as well as slight apical lordotic patient positioning. No significant pulmonary vascular congestion. OSSEOUS STRUCTURES: No significant abnormalities. VISUALIZED UPPER ABDOMEN: Normal. OTHER FINDINGS: None. IMPRESSION: Poor inspiration with low lung volumes common crowded bronchovascular markings and mild bibasilar atelectasis. Cardiomegaly.
--- NOTE | 2018-09-15 17:05 | CP.PCM.CON ---
History of Present Illness - History of Present Illness History of Present Illness: Neurology Consultation Note: Consult requested by Dr. Reinoso Mrs. Brody is a 67-year-old woman with a past medical history of Anxiety, COPD, Depression, Fractures (right arm), HTN, Sleep Apnea, recently admitted for dizziness/lightheadedness and falls. She was treated for cellulitis. CT head showed chronic lacunar infarcts, but no acute findings. She has had anaphylaxis before to iodine contrast, so a CTA was not possible. She is morbidly obese and very claustrophobic, so an MRI/MRA was not possible. Neurology was consulted to assist with the management and care. Review of Systems - Review of Systems All systems: reviewed and no additional remarkable complaints except Past Patient History - Infectious Disease Hx of Infectious Diseases: None - Tetanus Immunizations Tetanus Immunization: Unknown - Past Medical History & Family History Past Medical History?: Yes - Past Social History Smoking Status: Former Smoker - CARDIAC Hx Hypertension: Yes - PULMONARY Hx Chronic Obstructive Pulmonary Disease (COPD): Yes Hx Sleep Apnea: Yes - NEUROLOGICAL Hx Neurological Disorder: No (unknown) - HEENT Hx HEENT Problems: No - RENAL Hx Chronic Kidney Disease: No - ENDOCRINE/METABOLIC Hx Endocrine Disorders: Yes Hx Diabetes Mellitus Type 2: Yes Hx Systemic Lupus Erythematosus: Yes - HEMATOLOGICAL/ONCOLOGICAL Hx Human Immunodeficiency Virus (HIV): No - INTEGUMENTARY Hx Dermatological Problems: No - MUSCULOSKELETAL/RHEUMATOLOGICAL Hx Fractures: Yes (right arm) - GASTROINTESTINAL Hx Gastrointestinal Disorders: No - GENITOURINARY/GYNECOLOGICAL Hx Genitourinary Disorders: No - PSYCHIATRIC Hx Anxiety: Yes Hx Depression: Yes - SURGICAL HISTORY Hx Appendectomy: Yes Hx Cholecystectomy: Yes Hx Tonsillectomy: Yes - ANESTHESIA Hx Anesthesia: Yes Hx Anesthesia Reactions: No Hx Malignant Hyperthermia: No Meds Allergies/Adverse Reactions: Allergies Allergy/AdvReac Type Severity Reaction Status Date / Time iodine Allergy RASH Verified 09/12/18 14:11 Penicillins Allergy RASH Verified 09/12/18 14:11 Sulfa (Sulfonamide Allergy RASH Verified 09/12/18 14:11 Antibiotics) tetanus and diphtheria Allergy SWELLING Verified 09/12/18 14:11 toxoids [tetanus & diphtheria toxoids] diphenhydramine AdvReac Tachycardia Verified 09/12/18 14:11 [From Benadryl] - Medications Medications: Current Medications Acetaminophen (Tylenol 325mg Tab) 650 mg PO Q4 PRN PRN Reason: Pain, moderate (4-7) Last Admin: 09/15/18 13:20 Dose: 650 mg Albuterol/Ipratropium (Duoneb 3 Mg/0.5 Mg (3 Ml) Ud) 3 ml INH RQ6 [facility] Last Admin: 09/15/18 13:35 Dose: 3 ml Aspirin (Ecotrin) 81 mg PO DAILY [facility] Last Admin: 09/15/18 08:39 Dose: 81 mg Enoxaparin Sodium (Lovenox) 40 mg SC DAILY [facility]; Protocol Last Admin: 09/15/18 10:28 Dose: 40 mg Famotidine (Pepcid) 20 mg PO BID [facility] Last Admin: 09/15/18 16:48 Dose: 20 mg Metoprolol Tartrate (Lopressor) 12.5 mg PO DAILY [facility] Last Admin: 09/15/18 08:41 Dose: 12.5 mg Nystatin/Triamcinolone Acetonide (Mycolog Ii Oint) 1 applic TOP TID [facility] Last Admin: 09/15/18 16:47 Dose: Not Given Ondansetron HCl (Zofran Tab) 4 mg PO Q8H PRN PRN Reason: Nausea/Vomiting Paroxetine HCl (Paxil) 30 mg PO DAILY [facility] Last Admin: 09/15/18 08:42 Dose: 30 mg Physical Exam - Constitutional Appears: Well - Head Exam Head Exam: ATRAUMATIC, NORMAL INSPECTION, NORMOCEPHALIC - Eye Exam Eye Exam: EOMI, Normal appearance, PERRL Pupil Exam: NORMAL ACCOMODATION, PERRL - ENT Exam ENT Exam: Mucous Membranes Moist, Normal Exam - Neck Exam Neck exam: Positive for: Normal Inspection - Respiratory Exam Respiratory Exam: Clear to Auscultation Bilateral, NORMAL BREATHING PATTERN - Cardiovascular Exam Cardiovascular Exam: REGULAR RHYTHM - GI/Abdominal Exam GI & Abdominal Exam: Normal Bowel Sounds, Soft. absent: Tenderness - Extremities Exam Extremities exam: Positive for: normal inspection - Back Exam Back exam: NORMAL INSPECTION - Neurological Exam Neurological exam: Alert, CN II-XII Intact, Normal Gait, Oriented x3, Reflexes Normal - Psychiatric Exam Psychiatric exam: Normal Affect, Normal Mood - Skin Skin Exam: Dry, Intact, Normal Color, Warm Results - Vital Signs Recent Vital Signs: Last Vital Signs Temp 97.7 F 09/15/18 16:24 Pulse 79 09/15/18 16:24 Resp 20 09/15/18 16:24 BP 96/65 L 09/15/18 16:24 Pulse Ox 84 L 09/15/18 14:22 - Labs Result Diagrams: 09/15/18 06:10 09/15/18 06:10 Labs: Laboratory Results - last 24 hr 09/14/18 09/14/18 09/14/18 20:57 20:57 20:57 WBC 5.1 RBC 4.98 Hgb 12.5 Hct 40.1 MCV 80.6 L MCH 25.1 L MCHC 31.2 L RDW 20.2 H Plt Count 195 MPV 8.5 Neut % (Auto) 65.5 Lymph % (Auto) 13.8 L Stanley % (Auto) 18.5 H Eos % (Auto) 1.0 Baso % (Auto) 1.2 Neut # (Auto) 3.3 Lymph # (Auto) 0.7 L Stanley # (Auto) 0.9 H Eos # (Auto) 0.0 Baso # (Auto) 0.1 PT INR APTT Sodium 135 Potassium 5.1 H Chloride 94 L Carbon Dioxide 31 H Anion Gap 15 BUN 25 H Creatinine 1.2 Est GFR ( Amer) 55 Est GFR (Non-Af Amer) 45 POC Glucose (mg/dL) Random Glucose 98 Lactic Acid 2.1 Calcium 9.2 Phosphorus 4.3 Magnesium 2.1 Total Bilirubin 2.0 H AST 54 H D ALT 41 Alkaline Phosphatase 90 Total Creatine Kinase 31 Troponin I 0.0140 NT-Pro-B Natriuret Pep 2950 H Total Protein 8.2 Albumin 4.0 Globulin 4.2 H Albumin/Globulin Ratio 1.0 Blood Type Antibody Screen BBK History Checked 09/14/18 09/14/18 09/14/18 20:57 21:25 21:28 WBC RBC Hgb Hct MCV MCH MCHC RDW Plt Count MPV Neut % (Auto) Lymph % (Auto) Stanley % (Auto) Eos % (Auto) Baso % (Auto) Neut # (Auto) Lymph # (Auto) Stanley # (Auto) Eos # (Auto) Baso # (Auto) PT 17.9 H INR 1.6 APTT 43.3 H Sodium Potassium Chloride Carbon Dioxide Anion Gap BUN Creatinine Est GFR ( Amer) Est GFR (Non-Af Amer) POC Glucose (mg/dL) 112 H Random Glucose Lactic Acid Calcium Phosphorus Magnesium Total Bilirubin AST ALT Alkaline Phosphatase Total Creatine Kinase Troponin I NT-Pro-B Natriuret Pep Total Protein Albumin Globulin Albumin/Globulin Ratio Blood Type A POSITIVE Antibody Screen Negative BBK History Checked No verified bt 09/15/18 09/15/18 06:10 06:10 WBC 4.9 RBC 5.05 Hgb 12.6 Hct 40.9 MCV 81.1 MCH 25.1 L MCHC 30.9 L RDW 20.1 H Plt Count 204 MPV Neut % (Auto) Lymph % (Auto) Stanley % (Auto) Eos % (Auto) Baso % (Auto) Neut # (Auto) Lymph # (Auto) Stanley # (Auto) Eos # (Auto) Baso # (Auto) PT INR APTT Sodium 137 Potassium 4.4 Chloride 95 L Carbon Dioxide 30 Anion Gap 16 BUN 25 H Creatinine 1.3 H Est GFR ( Amer) 50 Est GFR (Non-Af Amer) 41 POC Glucose (mg/dL) Random Glucose 83 Lactic Acid Calcium 9.4 Phosphorus Magnesium Total Bilirubin AST ALT Alkaline Phosphatase Total Creatine Kinase Troponin I NT-Pro-B Natriuret Pep Total Protein Albumin Globulin Albumin/Globulin Ratio Blood Type Antibody Screen BBK History Checked Assessment & Plan (1) Balance problem Assessment and Plan: No current focal neurological deficits. She may have some recurrent posterior circulation symptoms. I recommend obtaining a OPEN MRI of the head without contrast and OPEN MRA of the head/neck to rule out vertebrobasilar insufficiency as an outpatient. These events are not consistent with seizures, they appear to be more likely systemically mediated due to hypoxia from COPD or due to her weight and difficulty with ambulation. The symptoms appear to be more consistent with generalized weakness. Thank you for this consultation. Status: Acute
--- NOTE | 2018-09-15 17:11 | US ---
Date of service: 09/15/2018 PROCEDURE: Duplex ultrasound of the carotid and vertebral arteries. HISTORY: syncope COMPARISON: Comparison made with prior study 05/03/2014 TECHNIQUE: Grayscale and duplex Doppler evaluation of the cervical carotid and vertebral arteries were performed. The common carotid, carotid bifurcations and cervical ICA and proximal ECA were evaluated. The vertebral arteries were evaluated for gross patency and direction. FINDINGS: RIGHT CAROTID ARTERIES: Common Carotid Artery: Normal. Maximal flow velocity of 82 cm/s. Carotid Bifurcation: Calcified atherosclerotic plaque seen at the level of the distal right common carotid artery extending into the proximal margin of the internal carotid artery Internal Carotid Artery:Normal. Maximal flow velocity of 74 cm/s. External Carotid Artery (proximal branches): Normal. Maximal flow velocity of 76 cm/s. ICA/CCA Ratio: 1.6 LEFT CAROTID ARTERIES: Common Carotid Artery: Normal. Maximal flow velocity of 80 cm/s. Carotid Bifurcation: Calcified atherosclerotic plaque seen at the carotid bifurcation extending into the proximal margin of the internal carotid artery Internal Carotid Artery:Normal. Maximal flow velocity of 72 cm/s. External Carotid Artery (proximal branches): Normal. Maximal flow velocity of 74 cm/s. ICA/CCA Ratio: 1.1 VERTEBRAL ARTERIES: Right Vertebral Artery: Patent. Antegrade flow. Left Vertebral Artery: Patent. Antegrade flow. OTHER FINDINGS: No atherosclerotic calcification present IMPRESSION: There are calcified atherosclerotic plaque changes seen both carotid bifurcations/internal carotid arteries with no evidence of significant stepped up velocities.
[2018-09-16] MEDS: Albuterol-Ipratrop 3 mg / 0.5 (3 ml) UD INH SCH ×4 (02:20→19:07)
[2018-09-16] MEDS: Enoxaparin 40 mg Syringe SC SCH (08:54)
[2018-09-16] MEDS: Mycolog II OINT TOP SCH ×3 (08:55→16:47)
--- NOTE | 2018-09-16 09:13 | CARD ---
APPROVED REPORT Date of service: 09/14/2018 EKG Measurement Heart [id number] <Conclusion> Sinus rhythm with occasional premature ventricular complexes and premature atrial complexes Right axis deviation Low voltage QRS Cannot rule out Anteroseptal infarct, age undetermined Abnormal ECG
--- NOTE | 2018-09-16 09:24 | CP.PCM.PN ---
Subjective - Date & Time of Evaluation Date of Evaluation: 09/16/18 Time of Evaluation: 09:25 - Subjective Subjective: feels better no recurrence of syncope/fall no chest p0ains/sob refuses subacute care--wants to go home Objective - Vital Signs/Intake and Output Vital Signs (last 24 hours): Temp Pulse Resp BP Pulse Ox 97.4 F L 76 18 105/74 97 09/16/18 08:16 09/16/18 08:54 09/16/18 08:16 09/16/18 08:54 09/16/18 08:16 - Medications Medications: Current Medications Acetaminophen (Tylenol 325mg Tab) 650 mg PO Q4 PRN PRN Reason: Pain, moderate (4-7) Last Admin: 09/16/18 00:45 Dose: 650 mg Albuterol/Ipratropium (Duoneb 3 Mg/0.5 Mg (3 Ml) Ud) 3 ml INH RQ6 [facility] Last Admin: 09/16/18 07:42 Dose: 3 ml Aspirin (Ecotrin) 81 mg PO DAILY [facility] Last Admin: 09/16/18 08:53 Dose: 81 mg Enoxaparin Sodium (Lovenox) 40 mg SC DAILY [facility]; Protocol Last Admin: 09/16/18 08:54 Dose: 40 mg Famotidine (Pepcid) 20 mg PO BID [facility] Last Admin: 09/16/18 08:56 Dose: 20 mg Metoprolol Tartrate (Lopressor) 12.5 mg PO DAILY [facility] Last Admin: 09/16/18 08:54 Dose: 12.5 mg Nystatin/Triamcinolone Acetonide (Mycolog Ii Oint) 1 applic TOP TID [facility] Last Admin: 09/16/18 08:55 Dose: Not Given Ondansetron HCl (Zofran Tab) 4 mg PO Q8H PRN PRN Reason: Nausea/Vomiting Paroxetine HCl (Paxil) 30 mg PO DAILY [facility] Last Admin: 09/16/18 08:55 Dose: 30 mg - Labs Labs: 09/15/18 06:10 09/15/18 06:10 PT 17.9 Seconds (9.8-13.1) H 09/14/18 20:57 INR 1.6 09/14/18 20:57 APTT 43.3 Seconds (25.6-37.1) H 09/14/18 20:57 - Constitutional Appears: No Acute Distress - Head Exam Head Exam: ATRAUMATIC, NORMAL INSPECTION, NORMOCEPHALIC - Eye Exam Eye Exam: EOMI, Normal appearance, PERRL Pupil Exam: NORMAL ACCOMODATION, PERRL - ENT Exam ENT Exam: Mucous Membranes Moist, Normal Exam - Neck Exam Neck Exam: Full ROM, Normal Inspection. absent: Lymphadenopathy - Respiratory Exam Respiratory Exam: Clear to Ausculation Bilateral, NORMAL BREATHING PATTERN - Cardiovascular Exam Cardiovascular Exam: REGULAR RHYTHM, +S1, +S2. absent: Murmur - GI/Abdominal Exam GI & Abdominal Exam: Soft, Normal Bowel Sounds. absent: Tenderness - Rectal Exam Rectal Exam: NORMAL INSPECTION - Extremities Exam Extremities Exam: Full ROM, Pedal Edema. absent: Joint Swelling - Back Exam Back Exam: NORMAL INSPECTION - Neurological Exam Neurological Exam: Alert, Awake, CN II-XII Intact, Normal Gait, Oriented x3 - Psychiatric Exam Psychiatric exam: Normal Affect, Normal Mood - Skin Skin Exam: Dry, Intact, Normal Color, Warm Assessment and Plan - Assessment and Plan (Free Text) Assessment: syncope? htn--controlled off meds morbid obesity sammy syndrome pulmonary htn copd Plan: physical therapy cardiology and neurology eval for out pt workup by neurology will d/c in am if cleared by cardiology increase activity
--- NOTE | 2018-09-16 11:31 | CP.PCM.CON ---
History of Present Illness - History of Present Illness History of Present Illness: the patient was seen by me on consultation. The patient had had an accidental fall at home. I have interviewed the patient andspoken with her daughter at length I have reviewed her EKG and lab tests and examined her the patient is stable from cardiovascular point of view to return home. A full consultation note will follow. Past Patient History - Infectious Disease Hx of Infectious Diseases: None - Tetanus Immunizations Tetanus Immunization: Unknown - Past Medical History & Family History Past Medical History?: Yes - Past Social History Smoking Status: Former Smoker - CARDIAC Hx Hypertension: Yes - PULMONARY Hx Chronic Obstructive Pulmonary Disease (COPD): Yes Hx Sleep Apnea: Yes - NEUROLOGICAL Hx Neurological Disorder: No (unknown) - HEENT Hx HEENT Problems: No - RENAL Hx Chronic Kidney Disease: No - ENDOCRINE/METABOLIC Hx Endocrine Disorders: Yes Hx Diabetes Mellitus Type 2: Yes Hx Systemic Lupus Erythematosus: Yes - HEMATOLOGICAL/ONCOLOGICAL Hx Human Immunodeficiency Virus (HIV): No - INTEGUMENTARY Hx Dermatological Problems: No - MUSCULOSKELETAL/RHEUMATOLOGICAL Hx Fractures: Yes (right arm) - GASTROINTESTINAL Hx Gastrointestinal Disorders: No - GENITOURINARY/GYNECOLOGICAL Hx Genitourinary Disorders: No - PSYCHIATRIC Hx Anxiety: Yes Hx Depression: Yes - SURGICAL HISTORY Hx Appendectomy: Yes Hx Cholecystectomy: Yes Hx Tonsillectomy: Yes - ANESTHESIA Hx Anesthesia: Yes Hx Anesthesia Reactions: No Hx Malignant Hyperthermia: No Meds Allergies/Adverse Reactions: Allergies Allergy/AdvReac Type Severity Reaction Status Date / Time iodine Allergy RASH Verified 09/12/18 14:11 Penicillins Allergy RASH Verified 09/12/18 14:11 Sulfa (Sulfonamide Allergy RASH Verified 09/12/18 14:11 Antibiotics) tetanus and diphtheria Allergy SWELLING Verified 09/12/18 14:11 toxoids [tetanus & diphtheria toxoids] diphenhydramine AdvReac Tachycardia Verified 09/12/18 14:11 [From Benadryl] - Medications Medications: Current Medications Acetaminophen (Tylenol 325mg Tab) 650 mg PO Q4 PRN PRN Reason: Pain, moderate (4-7) Last Admin: 09/16/18 00:45 Dose: 650 mg Albuterol/Ipratropium (Duoneb 3 Mg/0.5 Mg (3 Ml) Ud) 3 ml INH RQ6 [facility] Last Admin: 09/16/18 07:42 Dose: 3 ml Aspirin (Ecotrin) 81 mg PO DAILY [facility] Last Admin: 09/16/18 08:53 Dose: 81 mg Enoxaparin Sodium (Lovenox) 40 mg SC DAILY [facility]; Protocol Last Admin: 09/16/18 08:54 Dose: 40 mg Famotidine (Pepcid) 20 mg PO BID [facility] Last Admin: 09/16/18 08:56 Dose: 20 mg Metoprolol Tartrate (Lopressor) 12.5 mg PO DAILY [facility] Last Admin: 09/16/18 08:54 Dose: 12.5 mg Nystatin/Triamcinolone Acetonide (Mycolog Ii Oint) 1 applic TOP TID [facility] Last Admin: 09/16/18 08:55 Dose: Not Given Ondansetron HCl (Zofran Tab) 4 mg PO Q8H PRN PRN Reason: Nausea/Vomiting Paroxetine HCl (Paxil) 30 mg PO DAILY [facility] Last Admin: 09/16/18 08:55 Dose: 30 mg Results - Vital Signs Recent Vital Signs: Last Vital Signs Temp 97.4 F L 09/16/18 08:16 Pulse 76 09/16/18 08:54 Resp 18 09/16/18 08:16 BP 105/74 09/16/18 08:54 Pulse Ox 97 09/16/18 08:16 - Labs Result Diagrams: 09/15/18 06:10 09/15/18 06:10
[2018-09-16 16:10] VITALS: RESP 20
[2018-09-17] MEDS: Albuterol-Ipratrop 3 mg / 0.5 (3 ml) UD INH SCH ×3 (02:09→12:59)
[2018-09-17 08:29] VITALS: BP 110/80; PULSE 80; TEMP 98.2; O2SAT 89
--- NOTE | 2018-09-17 09:12 | CP.PCM.DIS ---
Provider - Provider Date of Admission: 09/14/18 21:45 Attending physician: Oneil Reinoso MD Consults: 09/15/18 10:58 Cardiology Consult Routine Comment: Consulting Provider: Ace Horton V Consulting Physician: Ace Horton V Reason for Consult: SYNCOPE 09/15/18 10:59 Neurology Consult Routine Comment: Consulting Provider: Michael Ceballos Consulting Physician: Michael Ceballos Reason for Consult: SYNCOPE Time Spent in preparation of Discharge (in minutes): 30 Hospital Course - Lab Results Lab Results: Micro Results 09/14/18 20:59 Blood-Venous Blood Culture - Preliminary NO GROWTH AFTER 48 HOURS 09/14/18 20:59 Blood-Venous Blood Culture - Preliminary NO GROWTH AFTER 48 HOURS Most Recent Lab Values WBC 4.9 K/uL (4.8-10.8) 09/15/18 06:10 RBC 5.05 Mil/uL (3.80-5.20) 09/15/18 06:10 Hgb 12.6 g/dL (12.0-16.0) 09/15/18 06:10 Hct 40.9 % (34.0-47.0) 09/15/18 06:10 MCV 81.1 fl (81.0-99.0) 09/15/18 06:10 MCH 25.1 pg (27.0-31.0) L 09/15/18 06:10 MCHC 30.9 g/dL (33.0-37.0) L 09/15/18 06:10 RDW 20.1 % (11.5-14.5) H 09/15/18 06:10 Plt Count 204 K/uL (130-400) 09/15/18 06:10 MPV 8.5 fl (7.2-11.7) 09/14/18 20:57 Neut % (Auto) 65.5 % (50.0-75.0) 09/14/18 20:57 Lymph % (Auto) 13.8 % (20.0-40.0) L 09/14/18 20:57 [place] % (Auto) 18.5 % (0.0-10.0) H 09/14/18 20:57 Eos % (Auto) 1.0 % (0.0-4.0) 09/14/18 20:57 Baso % (Auto) 1.2 % (0.0-2.0) 09/14/18 20:57 Neut # (Auto) 3.3 K/uL (1.8-7.0) 09/14/18 20:57 Lymph # (Auto) 0.7 K/uL (1.0-4.3) L 09/14/18 20:57 [place] # (Auto) 0.9 K/uL (0.0-0.8) H 09/14/18 20:57 Eos # (Auto) 0.0 K/uL (0.0-0.7) 09/14/18 20:57 Baso # (Auto) 0.1 K/uL (0.0-0.2) 09/14/18 20:57 PT 17.9 Seconds (9.8-13.1) H 09/14/18 20:57 INR 1.6 09/14/18 20:57 APTT 43.3 Seconds (25.6-37.1) H 09/14/18 20:57 Sodium 137 mmol/l (132-148) 09/15/18 06:10 Potassium 4.4 MMOL/L (3.6-5.0) 09/15/18 06:10 Chloride 95 mmol/L (98-107) L 09/15/18 06:10 Carbon Dioxide 30 mmol/L (22-30) 09/15/18 06:10 Anion Gap 16 (10-20) 09/15/18 06:10 BUN 25 mg/dl (7-17) H 09/15/18 06:10 Creatinine 1.3 mg/dl (0.7-1.2) H 09/15/18 06:10 Est GFR ( Amer) 50 09/15/18 06:10 Est GFR (Non-Af Amer) 41 09/15/18 06:10 POC Glucose (mg/dL) 112 mg/dL (65-110) H 09/14/18 21:25 Random Glucose 83 mg/dL (65-105) 09/15/18 06:10 Lactic Acid 2.1 mmol/L (0.7-2.1) 09/14/18 20:57 Calcium 9.4 mg/dL (8.4-10.2) 09/15/18 06:10 Phosphorus 4.3 mg/dl (2.5-4.5) 09/14/18 20:57 Magnesium 2.1 MG/DL (1.6-2.3) 09/14/18 20:57 Total Bilirubin 2.0 mg/dl (0.2-1.3) H 09/14/18 20:57 AST 54 U/L (14-36) H D 09/14/18 20:57 ALT 41 U/L (9-52) 09/14/18 20:57 Alkaline Phosphatase 90 U/L (38-126) 09/14/18 20:57 Total Creatine Kinase 31 U/L (30-135) 09/14/18 20:57 Troponin I 0.0140 ng/mL (0.00-0.120) 09/14/18 20:57 NT-Pro-B Natriuret Pep 2950 pg/ml (0-900) H 09/14/18 20:57 Total Protein 8.2 G/DL (6.3-8.2) 09/14/18 20:57 Albumin 4.0 g/dL (3.5-5.0) 09/14/18 20:57 Globulin 4.2 gm/dL (2.2-3.9) H 09/14/18 20:57 Albumin/Globulin Ratio 1.0 (1.0-2.1) 09/14/18 20:57 Blood Type A POSITIVE 09/14/18 21:28 Antibody Screen Negative 09/14/18 21:28 BBK History Checked No verified bt 09/14/18 21:28 - Hospital Course Hospital Course: NO RECURRENCE OF FALL SYMPTOM-FREE VSS Discharge Exam - Head Exam Head Exam: ATRAUMATIC, NORMAL INSPECTION, NORMOCEPHALIC - Eye Exam Eye Exam: EOMI, Normal appearance, PERRL Pupil Exam: NORMAL ACCOMODATION, PERRL - Respiratory Exam Respiratory Exam: NORMAL BREATHING PATTERN - GI/Abdominal Exam GI & Abdominal Exam: Normal Bowel Sounds - Rectal Exam Rectal Exam: NORMAL INSPECTION - Exam Exam: Circumcision, NORMAL INSPECTION Bimanual exam: NORMAL BIMANUAL EXAM - Extremities Exam Extremities exam: pedal edema - Neurological Exam Neurological exam: Alert, CN II-XII Intact, Normal Gait, Oriented x3, Reflexes Normal - Psychiatric Exam Psychiatric exam: Normal Affect, Normal Mood - Skin Skin Exam: Dry, Intact, Normal Color, Warm Discharge Plan - Follow Up Plan Condition: FAIR Disposition: HOME/ ROUTINE Instructions: Vertigo (a Type of Dizziness) (DC), Preventing Falls, Getting Up From a Fall, Depression (DC) Additional Instructions: follow up with primary MD 1 week HOLD BP MEDS Referrals: Ace Horton MD [Staff Provider] - Michael Ceballos MD [Medical Doctor] - Oneil Reinoso MD [Family Provider] -
[2018-09-17] MEDS: Enoxaparin 40 mg Syringe SC SCH (09:52)
[2018-09-17] MEDS: Mycolog II OINT TOP SCH ×2 (09:53→13:21)
--- NOTE | 2018-09-17 17:13 | PQF ---
PROVIDER RESPONSE TEXT: MORBID OBESITY--BMI-55.6 OBSTRUCTIVE SLEEP APNEA SYNDROME REVIEWER QUERY TEXT: Documentation Clarification Your help is requested in clarifying the following clinical documentation, if you can please further specify in the medical record and discharge summary. When coding morbid obesity a second code for the BMI is needed. Would you please document the BMI in the EMR. The patient's Clinical Indicators include: PSH: S/P Gastric bypass EMR: 5'3", weight 313 pounds, BMI of 55.6 Heart Healthy Diet Query created by: Estela Sidhu on 09/16/2018 12:59 PM Electronically signed by: Oneil Reinoso MD 09/17/2018 5:10 PM
== END 2018-09-17 14:45 | disposition home or self-care (01) | DRG 312 ==
LOC: H.ER 19:51 → H.ERHOLD 21:45 → H.MEDSURG1 23:04
PROVIDERS: ADMIT Internal Medicine Pulmonary Disease; ATTEND Internal Medicine Pulmonary Disease
DX: R55 Syncope and collapse (principal); Z68.43 Body mass index [BMI] 50.0-59.9, adult; E66.01 Morbid (severe) obesity due to excess calories; G47.33 Obstructive sleep apnea (adult) (pediatric); J44.9 Chronic obstructive pulmonary disease, unspecified; Z99.81 Dependence on supplemental oxygen; R09.02 Hypoxemia; F40.240 Claustrophobia; I10 Essential (primary) hypertension; E11.9 Type 2 diabetes mellitus without complications; Z79.82 Long term (current) use of aspirin; Z87.891 Personal history of nicotine dependence; I27.20 Pulmonary hypertension, unspecified; S09.90XA Unspecified injury of head, initial encounter; W18.30XA Fall on same level, unspecified, initial encounter; Y92.009 Unspecified place in unspecified non-institutional (private) residence as the place of occurrence of the external cause; Z98.84 Bariatric surgery status; M32.9 Systemic lupus erythematosus, unspecified; Z88.0 Allergy status to penicillin; Z88.2 Allergy status to sulfonamides; Z91.041 Radiographic dye allergy status; F32.9 Major depressive disorder, single episode, unspecified; F41.9 Anxiety disorder, unspecified; R29.6 Repeated falls

== ENCOUNTER 2018-09-20 21:55 | Emergency (ER) | payer MEDICARE, MEDICAID ==
[2018-09-20 21:55] VITALS: BMI 55.5
[2018-09-21 00:36] LABS: ALB/GLOB RATIO 0.9 (1.0-2.1); ALT/SGPT 48 U/L (9-52); AST/SGOT 52 U/L (14-36); BLOOD UREA NITROGEN 30 mg/dl (7-17); CALCIUM 9.2 mg/dL (8.4-10.2); GFR NON-AFRICAN AMERICAN > 60
[2018-09-21 00:42] LABS: BASO # 0.1 K/uL (0.0-0.2); EOS % 0.7 % (0.0-4.0); HEMOGLOBIN 12.8 g/dL (12.0-16.0); LYMPH # 0.7 K/uL (1.0-4.3); LYMPH % 10.8 % (20.0-40.0); MEAN CELL VOLUME 79.7 fl (81.0-99.0); MEAN CORPUSCULAR HEMOGLOBIN 24.4 pg (27.0-31.0); MEAN CORPUSCULAR HGB CONC 30.7 g/dL (33.0-37.0); MEAN PLATELET VOLUME 7.9 fl (7.2-11.7); MONO # 1.1 K/uL (0.0-0.8); MONO % 18.5 % (0.0-10.0); NEUT # 4.2 K/uL (1.8-7.0); NRBC % 0.2 % (0.0-0.0); RBC 5.22 Mil/uL (3.80-5.20); RED CELL DISTRIBUTION WIDTH 21.1 % (11.5-14.5); WHITE BLOOD COUNT 6.1 K/uL (4.8-10.8)
--- NOTE | 2018-09-21 00:52 | ED PDOC ---
HPI: Abdomen Time Seen by Provider: 09/20/18 22:13 Chief Complaint (Nursing): Abdominal Pain Chief Complaint (Provider): Abdominal Pain History Per: Patient History/Exam Limitations: no limitations Associated Symptoms: Nausea. denies: Fever, Chills, Vomiting Additional Complaint(s): 67 years old female with a history of lupus, COPD, and sleep apnea presents to ER for evaluation of abdominal pain associated with nausea. Patient reports she has not had a bowel movement in 5 days. She states she was seen in ED several weeks ago for a spider bite and was sent home with antibiotics. Patient reports fail of therapy and was admitted for cellulitis and discharged on antibiotics. She states she was readmitted overnight several days later for a fall and was discharge 6 days ago. Patient reports she received a fleet enema while admitted with minimal stool. Patient reports she attempted another enema a few days ago with no bowel movement. She reports she spoke to her PMD today and was given a prescription of magnesium citrate that she took but has not had a bowel movement. Patient denies vomiting, fever and chills. Having some nausea. PMD: Oneil Reinoso I Past Medical History Reviewed: Historical Data, Nursing Documentation, Vital Signs Vital Signs: Last Vital Signs Temp 97.4 F L 09/20/18 22:01 Pulse 96 H 09/20/18 22:01 Resp BP 125/79 09/20/18 22:01 Pulse Ox 93 L 09/20/18 23:25 - Medical History PMH: Anxiety, COPD, Depression, Fractures (right arm), HTN, Sleep Apnea Denies: HIV, Chronic Kidney Disease - Surgical History Surgical History: Appendectomy, Cholecystectomy, Tonsillectomy - Family History Family History: States: Unknown Family Hx - Social History Current smoker - smoking cessation education provided: No Alcohol: None Drugs: Denies - Home Medications Home Medications: Ambulatory Orders Medication Instructions Recorded Aspirin [Ecotrin] 81 mg PO DAILY 09/01/18 PARoxetine [Paxil] 30 mg PO DAILY tab 09/04/18 Famotidine [Pepcid] 20 mg PO BID #60 tab 09/14/18 Lactulose 20 gm PO QID PRN 7 Days solution 09/21/18 - Allergies Allergies/Adverse Reactions: Allergies Allergy/AdvReac Type Severity Reaction Status Date / Time iodine Allergy RASH Verified 09/12/18 14:11 Penicillins Allergy RASH Verified 09/12/18 14:11 Sulfa (Sulfonamide Allergy RASH Verified 09/12/18 14:11 Antibiotics) tetanus and diphtheria Allergy SWELLING Verified 09/12/18 14:11 toxoids [tetanus & diphtheria toxoids] diphenhydramine AdvReac Tachycardia Verified 09/12/18 14:11 [From Benadryl] Review of Systems ROS Statement: Except As Marked, All Systems Reviewed And Found Negative Constitutional: Negative for: Fever, Chills Gastrointestinal: Positive for: Nausea, Abdominal Pain. Negative for: Vomiting Physical Exam - Reviewed Nursing Documentation Reviewed: Yes Vital Signs Reviewed: Yes - Physical Exam Appears: Positive for: Uncomfortable (Morbidly obese) Head Exam: Positive for: ATRAUMATIC, NORMOCEPHALIC Skin: Positive for: Cyanosis (of lips and fingers bilaterally that patient states is chronic) Gastrointestinal/Abdominal: Positive for: Soft, Tenderness (on palpation to RLQ), Mass (palpated on RLQ), Other (Oblique scar on upper abdomen, well healed. Multiple striae.). Negative for: Guarding, Rebound Rectal: Positive for: Other (Extrernal hemorrhage. No bleeding. Firm stool noted in rectal del cid with attempt made to assist with disinfection without success. Exam was performed in the presence of Joesph the nurse.). Negative for: Mass Neurological/Psych: Positive for: Awake, Alert, Oriented (x3) - Laboratory Results Result Diagrams: 09/21/18 00:25 09/21/18 00:25 Lab Results: Total Bilirubin 2.1 mg/dl (0.2-1.3) H 09/21/18 00:25 AST 52 U/L (14-36) H 09/21/18 00:25 ALT 48 U/L (9-52) 09/21/18 00:25 Alkaline Phosphatase 99 U/L (38-126) 09/21/18 00:25 Total Protein 8.3 G/DL (6.3-8.2) H 09/21/18 00:25 Albumin 4.0 g/dL (3.5-5.0) 09/21/18 00:25 Globulin 4.3 gm/dL (2.2-3.9) H 09/21/18 00:25 Albumin/Globulin Ratio 0.9 (1.0-2.1) L 09/21/18 00:25 - ECG O2 Sat by Pulse Oximetry: 93 (RA) Pulse Ox Interpretation: Abnormal Medical Decision Making Medical Decision Making: Time: 2353 Initial plan: --Fleet enema --CBC --CMP 0050 --Patient was able to pass some loose stools but continues to have abdominal discomfort. --KUB ordered. KUB read by me: extensive amounts of stool, no evidence of perforation. 01:22am: Tap water enema ordered given minimal stool and X-ray confirming constipation. 02:30am: minimal soft formed stool after 2nd enema. Abdominal pain mildly improved. Rectal exam performed in the presence of ER Belt Loop Machine Operator João and no stool noted in vautl. Case discussed with Dr. Reinoso who states that patient should be discharged with lactulose and follow up with him in his office early next week as she has had multiple admissions in the past month and no evidence of acute perforation or small bowel obstruction. . This was discussed with patient and is in agreement with plan. Stable for d/c home. Scribe Attestation: Documented by Desi Shelton, acting as a scribe for MARLEN Recinos. Provider Scribe Attestation: All medical record entries made by the Scribe were at my direction and personally dictated by me. I have reviewed the chart and agree that the record accurately reflects my personal performance of the history, physical exam, medical decision making, and the department course for this patient. I have also personally directed, reviewed, and agree with the discharge instructions and disposition. Disposition - Clinical Impression Clinical Impression: Constipation - Patient ED Disposition Is Patient to be Admitted: No Discussed With DrDiana: Oneil Reinoso Counseled Patient/Family Regarding: Studies Performed, Diagnosis, Need For Followup - Disposition Referrals: Oneil Reinoso MD [Family Provider] - Disposition: Routine/Home Disposition Time: 03:25 Condition: STABLE Additional Instructions: Follow up with Dr. Reinoso early next week. Take Lactulose as prescribed until you have a bowel movement. Return to ER if your symptoms worsen. Prescriptions: Lactulose 20 gm PO QID PRN 7 Days solution PRN Reason: Constipation Instructions: Constipation, Adult (DC) Forms: [facility] (Fijian) Print Language: SERBIAN
[2018-09-21 04:26] VITALS: BP 132/81; PULSE 91; RESP 20; TEMP 98
[2018-09-21 06:58] VITALS: O2SAT 93
--- NOTE | 2018-09-21 09:28 | RAD ---
Date of service: 09/21/2018 HISTORY: r/o sbo COMPARISON: None available. TECHNIQUE: 1 view obtained. FINDINGS: BOWEL: Few distended small large-bowel loops are seen filled with gas pattern that could reflect limited ileus. No definite bowel obstruction. No large free intra peritoneal gas collection appreciated. BONES: Normal. OTHER FINDINGS: Surgical clips again evident in the upper abdomen bilaterally. IMPRESSION: Potential limited ileus pattern. No definite bowel obstruction. Postop changes evident upper abdomen.
== END 2018-09-21 03:25 | disposition home or self-care (01) ==
LOC: H.ER 21:55
DX: K59.00 Constipation, unspecified (principal); Z88.0 Allergy status to penicillin

== ENCOUNTER 2018-09-24 14:28 | Observation (INO) | payer MEDICARE, MEDICAID ==
[2018-09-24 14:29] VITALS: BMI 55.5
--- NOTE | 2018-09-24 15:20 | ED PDOC ---
HPI: General Adult Time Seen by Provider: 09/24/18 14:45 Chief Complaint (Nursing): Dizziness/Lightheaded Chief Complaint (Provider): dizziness and shortness of breath History Per: Patient History/Exam Limitations: no limitations Onset/Duration Of Symptoms: Sudden Onset Current Symptoms Are (Timing): Still Present Severity: Moderate Additional Complaint(s): 67 year old female with a history of COPD and sleep apnea presents to the ED for an evaluation of dizziness and shortness of breath onset today. Patient states she has not slept in weeks and when she tried to turn in couch, she felt dizzy with the room spinning and she fell and hit her head resulting to loss of consciousness. Her dizziness has worsened since the fall. As per daughter, patient was admitted on August 26, 2018 for a spider bite and cellulitis and after she was discharged home, she had nausea, diarrhea and dizziness. Patient does not take any medication for sleep apnea. Otherwise, she denies fever, weakness, numbness, diarrhea, nausea, vomiting or abdominal pain. PMD: Oneil Reinoso I Past Medical History Reviewed: Historical Data, Nursing Documentation, Vital Signs Vital Signs: Last Vital Signs Temp 98.2 F 09/24/18 14:30 Pulse 66 09/24/18 14:30 Resp 18 09/24/18 14:30 BP 119/77 09/24/18 14:30 Pulse Ox - Medical History PMH: Anxiety, COPD, Depression, Fractures (right arm), HTN, Sleep Apnea Denies: HIV, Chronic Kidney Disease - Surgical History Surgical History: Appendectomy, Cholecystectomy, Tonsillectomy - Family History Family History: States: Unknown Family Hx - Social History Current smoker - smoking cessation education provided: No Alcohol: None Drugs: Denies - Home Medications Home Medications: Ambulatory Orders Medication Instructions Recorded Aspirin [Ecotrin] 81 mg PO DAILY 09/01/18 PARoxetine [Paxil] 30 mg PO DAILY tab 09/04/18 Famotidine [Pepcid] 20 mg PO BID #60 tab 09/14/18 Lactulose 20 gm PO QID PRN 7 Days solution 09/21/18 - Allergies Allergies/Adverse Reactions: Allergies Allergy/AdvReac Type Severity Reaction Status Date / Time iodine Allergy RASH Verified 09/12/18 14:11 Penicillins Allergy RASH Verified 09/12/18 14:11 Sulfa (Sulfonamide Allergy RASH Verified 09/12/18 14:11 Antibiotics) tetanus and diphtheria Allergy SWELLING Verified 09/12/18 14:11 toxoids [tetanus & diphtheria toxoids] diphenhydramine AdvReac Tachycardia Verified 09/12/18 14:11 [From Benadryl] Review of Systems ROS Statement: Except As Marked, All Systems Reviewed And Found Negative Constitutional: Negative for: Fever Respiratory: Positive for: Shortness of Breath Gastrointestinal: Negative for: Nausea, Vomiting, Abdominal Pain, Diarrhea Neurological: Positive for: Dizziness, Other (LOC). Negative for: Weakness, Numbness Physical Exam - Reviewed Nursing Documentation Reviewed: Yes Vital Signs Reviewed: Yes - Physical Exam Appears: Positive for: Well (obese ), Non-toxic, No Acute Distress Head Exam: Positive for: ATRAUMATIC, NORMAL INSPECTION, NORMOCEPHALIC Skin: Positive for: Normal Color, Warm, Dry. Negative for: Rash Eye Exam: Positive for: EOMI, Normal appearance, PERRL ENT: Positive for: Normal ENT Inspection Neck: Positive for: Normal, Painless ROM, Supple. Negative for: Decreased ROM Cardiovascular/Chest: Positive for: Regular Rate, Rhythm. Negative for: Murmur Respiratory: Positive for: Normal Breath Sounds. Negative for: Respiratory Distress Gastrointestinal/Abdominal: Positive for: Normal Exam, Soft. Negative for: Tenderness Extremity: Positive for: Other (chronic edema on both legs ) Neurological/Psych: Positive for: Awake, Alert, Normal Tone, Oriented (x3) - Laboratory Results Result Diagrams: 09/24/18 16:31 09/24/18 16:31 - ECG Pulse Ox Interpretation: Normal Medical Decision Making Medical Decision Making: Time: 1511 Impression: dizziness, syncope, chronic shortness of breath Differential Diagnosis: peripheral vertigo, head injury, cardiac arrhythmia r/o CVA Plan: ABG Head w/o contrast CT EKG BNP BMO Troponin CBC w/ differential Meclizine 25mg Reevaluation 1624 PROCEDURE: CT HEAD WITHOUT CONTRAST. HISTORY: dizziness COMPARISON: None available. TECHNIQUE: Axial computed tomography images were obtained through the head/brain without intravenous contrast. Radiation dose: Total exam DLP = 784.99 mGy-cm. This CT exam was performed using one or more of the following dose reduction techniques: Automated exposure control, adjustment of the mA and/or kV according to patient size, and/or use of iterative reconstruction technique. FINDINGS: HEMORRHAGE: No intracranial hemorrhage. BRAIN: Good corticomedullary differentiation is seen. Reiterated diffuse cerebral at rophy and chronic microangiopathy. No suspicious extra-axial fluid collection is identified and the midline brain anatomy appears grossly nonfocal as imaged. No mass effect identified. VENTRICLES: Unremarkable. No hydrocephalus. CALVARIUM: Unremarkable. PARANASAL SINUSES: Unremarkable as visualized. No significant inflammatory changes. MASTOID AIR CELLS: Unremarkable as visualized. No inflammatory changes. OTHER FINDINGS: None. IMPRESSION: Stable limited age-related neuro degenerative change identified. CT of the head is otherwise unremarkable. Scribe Attestation: Documented by Diane Bhardwaj, acting as a scribe for Blu Macdonald MD Provider Scribe Attestation: All medical record entries made by the Scribe were at my direction and personally dictated by me. I have reviewed the chart and agree that the record accurately reflects my personal performance of the history, physical exam, medical decision making, and the department course for this patient. I have also personally directed, reviewed, and agree with the discharge instructions and disposition. Disposition - Disposition Forms: [employer] (Latvian)
--- NOTE | 2018-09-24 16:28 | CT ---
Date of service: 09/24/2018 PROCEDURE: CT HEAD WITHOUT CONTRAST. HISTORY: dizziness COMPARISON: None available. TECHNIQUE: Axial computed tomography images were obtained through the head/brain without intravenous contrast. Radiation dose: Total exam DLP = 784.99 mGy-cm. This CT exam was performed using one or more of the following dose reduction techniques: Automated exposure control, adjustment of the mA and/or kV according to patient size, and/or use of iterative reconstruction technique. FINDINGS: HEMORRHAGE: No intracranial hemorrhage. BRAIN: Good corticomedullary differentiation is seen. Reiterated diffuse cerebral atrophy and chronic microangiopathy. No suspicious extra-axial fluid collection is identified and the midline brain anatomy appears grossly nonfocal as imaged. No mass effect identified. VENTRICLES: Unremarkable. No hydrocephalus. CALVARIUM: Unremarkable. PARANASAL SINUSES: Unremarkable as visualized. No significant inflammatory changes. MASTOID AIR CELLS: Unremarkable as visualized. No inflammatory changes. OTHER FINDINGS: None. IMPRESSION: Stable limited age-related neuro degenerative change identified. CT of the head is otherwise unremarkable.
[2018-09-24 16:48] LABS: BLOOD UREA NITROGEN 27 mg/dl (7-17); CALCIUM 8.6 mg/dL (8.4-10.2); GFR NON-AFRICAN AMERICAN > 60
[2018-09-24 16:51] LABS: BASO % 0.6 % (0.0-2.0); EOS # 0.1 K/uL (0.0-0.7); EOS % 1.4 % (0.0-4.0); HEMOGLOBIN 12.9 g/dL (12.0-16.0); LYMPH # 0.7 K/uL (1.0-4.3); LYMPH % 11.2 % (20.0-40.0); MEAN CELL VOLUME 80.4 fl (81.0-99.0); MEAN CORPUSCULAR HEMOGLOBIN 24.7 pg (27.0-31.0); MEAN CORPUSCULAR HGB CONC 30.7 g/dL (33.0-37.0); MEAN PLATELET VOLUME 8.1 fl (7.2-11.7); MONO # 1.2 K/uL (0.0-0.8); MONO % 19.2 % (0.0-10.0); NEUT # 4.1 K/uL (1.8-7.0); NEUT % 67.6 % (50.0-75.0); NRBC % 0.2 % (0.0-0.0); RBC 5.22 Mil/uL (3.80-5.20); RED CELL DISTRIBUTION WIDTH 21.6 % (11.5-14.5); WHITE BLOOD COUNT 6.1 K/uL (4.8-10.8)
[2018-09-24 17:00] LABS: B-TYPE NATRIURETIC PEPTIDE 3690 pg/ml (0-900)
[2018-09-24 17:02] LABS: ABG ALLEN TEST YES; ARTERIAL BLOOD GAS HEMOGLOBIN 13.8 g/dL (11.7-17.4); ARTERIAL BLOOD GAS O2 CAPACITY 18.2 mL/dL (16-24); ARTERIAL BLOOD GAS O2 CONTENT 17.3 ML/dL (15-23); ARTERIAL BLOOD GAS O2 SAT 94.8 % (95-98); ARTERIAL BLOOD GAS PCO2 64 mm/Hg (35-45); ARTERIAL BLOOD GAS PO2 60 mm/Hg (80-100); ARTERIAL BLOOD GAS TCO2 41.6 mmol/L (22-28)
[2018-09-24] MEDS ORDERED: Albuterol-Ipratrop 3 mg / 0.5 (3 ml) UD INH PRN (20:12)
[2018-09-25 06:14] LABS: BASO % 0.2 % (0.0-2.0); EOS % 0.1 % (0.0-4.0); HEMOGLOBIN 12.8 g/dL (12.0-16.0); LYMPH # 0.4 K/uL (1.0-4.3); LYMPH % 8.5 % (20.0-40.0); MEAN CELL VOLUME 79.3 fl (81.0-99.0); MEAN CORPUSCULAR HEMOGLOBIN 24.9 pg (27.0-31.0); MEAN CORPUSCULAR HGB CONC 31.4 g/dL (33.0-37.0); MEAN PLATELET VOLUME 8.8 fl (7.2-11.7); MONO # 0.2 K/uL (0.0-0.8); MONO % 3.3 % (0.0-10.0); NEUT % 87.9 % (50.0-75.0); NRBC % 0.1 % (0.0-0.0); PLATELET COUNT 176 K/uL (130-400); RBC 5.15 Mil/uL (3.80-5.20); RED CELL DISTRIBUTION WIDTH 21.3 % (11.5-14.5); WHITE BLOOD COUNT 4.5 K/uL (4.8-10.8)
[2018-09-25 06:33] LABS: B-TYPE NATRIURETIC PEPTIDE 4110 pg/ml (0-900)
[2018-09-25 06:44] LABS: ALB/GLOB RATIO 0.9 (1.0-2.1); ALBUMIN 3.3 g/dL (3.5-5.0); ALT/SGPT 40 U/L (9-52); AST/SGOT 29 U/L (14-36); BLOOD UREA NITROGEN 27 mg/dl (7-17); CALCIUM 8.1 mg/dL (8.4-10.2); GFR NON-AFRICAN AMERICAN > 60
[2018-09-25 08:32] LABS: ANISOCYTOSIS MODERATE; LYMPHOCYTE 4 % (20-50); MONOCYTE 3 % (0-10); NEUTROPHIL 93 % (42-75); PLATELET ESTIMATE NORMAL (NORMAL); TOTAL CELLS COUNTED 100
[2018-09-25 08:33] LABS: GIANT PLATELETS PRESENT; LARGE PLATELETS PRESENT; OVALOCYTES SLIGHT
[2018-09-25] MEDS: Pantoprazole 40 mg EC Tab PO SCH (09:44)
[2018-09-25] MEDS: Enoxaparin 40 mg Syringe SC SCH (09:47)
--- NOTE | 2018-09-25 09:56 | CP.PCM.CON ---
History of Present Illness - History of Present Illness History of Present Illness: This 67-year-old morbidly obese patient with severe obstructive sleep apnea as well as hypoxia hypercapnia syndrome with severe pulmonary hypertension and right ventricular enlargement with dysfunction, has come into the hospital after arriving in the emergency room following a lightheaded spell followed by a syncopal episode while in upright position. The patient had taken 40 mg of furosemide around 7:30 in the morning and this episode happened around 1 PM. The patient had not been prescribed furosemide but took it because she felt swelling of legs required a diuretic. The patient has had multiple hospitalizations within last 1 month. Notes pertaining to these hospitalizations are self explanatory. The patient is in the process of obtaining a CPAP machine and arranging a gastric bypass surgery for extreme obesity. Physical examination shows a middle aged extremely overweight anxious female who is quite alert awake and coherent. She was afebrile with a pulse rate of 78 bpm with occasional premature atrial beats on her telemetry. Her blood pressure lying down and standing up was 116/74 mmHg. Her jugular venous pressure could not be evaluated for because of a short thick neck. There were varicosities over both lower extremities and evidence of pitting edema. Her extremities were warm and nailbeds were pink. There was no central or peripheral cyanosis. There was no clubbing. The apex was not palpable. The first and second heart sounds were distant but normal. There were no rales. Her electrocardiogram showed extremely low voltage. It showed sinus rhythm with right axis deviation and poor R wave progression in anterior chest leads. Her echocardiogram couple of weeks back had shown preserved left ventricular systolic function with markedly dilated right ventricle which demonstrated systolic dysfunction as well. There was severe pulmonary arterial hypertension with a systolic pressure at 74 mmHg. Her lab data was noted. Impression: Syncopal episode probably secondary to orthostatic hypotension induced by vigorous diuresis secondary to use of loop diuretic. Severe pulmonary hypertension with right ventricular systolic dysfunction. Hypoxia hypoventilation syndrome with a history of obstructive sleep apnea secondary to morbid obesity. Chronic lung disease secondary to history of cigarette use. Anxiety disorder. If patient's vital signs remained stable while off of diuretics she may be allowed to return home and proceed with her arrangements of gastric bypass surgery and obtaining a CPAP machine. Past Patient History - Infectious Disease Hx of Infectious Diseases: None - Tetanus Immunizations Tetanus Immunization: Unknown - Past Medical History & Family History Past Medical History?: Yes - Past Social History Smoking Status: Never Smoked - CARDIAC Hx Cardiac Disorders: Yes Hx Hypertension: Yes - PULMONARY Hx Respiratory Disorders: Yes Hx Chronic Obstructive Pulmonary Disease (COPD): Yes Hx Sleep Apnea: Yes - NEUROLOGICAL Hx Neurological Disorder: No (unknown) - HEENT Hx HEENT Problems: No - RENAL Hx Chronic Kidney Disease: No - ENDOCRINE/METABOLIC Hx Endocrine Disorders: Yes Hx Diabetes Mellitus Type 2: Yes - HEMATOLOGICAL/ONCOLOGICAL Hx Human Immunodeficiency Virus (HIV): No - INTEGUMENTARY Hx Dermatological Problems: No - MUSCULOSKELETAL/RHEUMATOLOGICAL Hx Falls: Yes Hx Fractures: Yes (right arm) - GASTROINTESTINAL Hx Gastrointestinal Disorders: No - GENITOURINARY/GYNECOLOGICAL Hx Genitourinary Disorders: No - PSYCHIATRIC Hx Psychophysiologic Disorder: Yes Hx Anxiety: Yes Hx Depression: Yes Hx Substance Use: No - SURGICAL HISTORY Hx Surgeries: Yes Hx Appendectomy: Yes Hx Cholecystectomy: Yes Hx Tonsillectomy: Yes - ANESTHESIA Hx Anesthesia: Yes Hx Anesthesia Reactions: No Hx Malignant Hyperthermia: No Has any member of the family had a problem w/ anesthesia?: No Meds Allergies/Adverse Reactions: Allergies Allergy/AdvReac Type Severity Reaction Status Date / Time iodine Allergy RASH Verified 09/12/18 14:11 Penicillins Allergy RASH Verified 09/12/18 14:11 Sulfa (Sulfonamide Allergy RASH Verified 09/12/18 14:11 Antibiotics) tetanus and diphtheria Allergy SWELLING Verified 09/12/18 14:11 toxoids [tetanus & diphtheria toxoids] diphenhydramine AdvReac Tachycardia Verified 09/12/18 14:11 [From Benadryl] - Medications Medications: Current Medications Albuterol/Ipratropium (Duoneb 3 Mg/0.5 Mg (3 Ml) Ud) 3 ml INH RQ4 PRN PRN Reason: Shortness of Breath Alprazolam (Xanax) 2 mg PO Q6 PRN PRN Reason: Anxiety Aspirin (Ecotrin) 81 mg PO DAILY [facility] Last Admin: 09/25/18 09:44 Dose: 81 mg Enoxaparin Sodium (Lovenox) 40 mg SC DAILY [facility]; Protocol Last Admin: 09/25/18 09:47 Dose: Not Given Ondansetron HCl (Zofran Inj) 4 mg IVP Q6 PRN PRN Reason: Nausea/Vomiting Pantoprazole Sodium (Protonix Ec Tab) 40 mg PO DAILY [facility] Last Admin: 09/25/18 09:44 Dose: 40 mg Paroxetine HCl (Paxil) 30 mg PO DAILY [facility] Last Admin: 09/25/18 09:44 Dose: 30 mg Results - Vital Signs Recent Vital Signs: Last Vital Signs Temp 97.7 F 09/25/18 08:00 Pulse 84 09/25/18 08:00 Resp 18 09/25/18 08:00 BP 139/92 H 09/25/18 08:00 Pulse Ox 92 L 09/25/18 08:00 - Labs Result Diagrams: 09/25/18 04:30 09/25/18 04:30 Labs: Laboratory Results - last 24 hr 09/24/18 09/24/18 09/24/18 16:31 16:31 16:59 WBC 6.1 RBC 5.22 H Hgb 12.9 Hct 41.9 MCV 80.4 L MCH 24.7 L MCHC 30.7 L RDW 21.6 H Plt Count 190 MPV 8.1 Neut % (Auto) 67.6 Lymph % (Auto) 11.2 L [place] % (Auto) 19.2 H Eos % (Auto) 1.4 Baso % (Auto) 0.6 Neut # (Auto) 4.1 Lymph # (Auto) 0.7 L [place] # (Auto) 1.2 H Eos # (Auto) 0.1 Baso # (Auto) 0.0 Neutrophils % (Manual) Lymphocytes % (Manual) Monocytes % (Manual) Platelet Estimate Large Platelets Giant Platelets Anisocytosis (manual) Ovalocytes pCO2 64 H pO2 60 L HCO3 34.0 H ABG pH 7.40 ABG Total CO2 41.6 H ABG O2 Saturation 94.8 L ABG O2 Content 17.3 ABG Base Excess 11.9 H ABG Hemoglobin 13.8 ABG Carboxyhemoglobin 3.7 H POC ABG HHb (Measured) 4.9 ABG Methemoglobin 2.3 ABG O2 Capacity 18.2 Homero Test Yes A-a O2 Difference 60.0 Hgb O2 Saturation 89.1 L FiO2 28.0 Sodium 135 Potassium 5.0 Chloride 91 L Carbon Dioxide 36 H Anion Gap 13 BUN 27 H Creatinine 0.9 Est GFR ( Amer) > 60 Est GFR (Non-Af Amer) > 60 Random Glucose 89 Calcium 8.6 Total Bilirubin AST ALT Alkaline Phosphatase Troponin I 0.0180 NT-Pro-B Natriuret Pep 3690 H Total Protein Albumin Globulin Albumin/Globulin Ratio 09/25/18 09/25/18 04:30 04:30 WBC 4.5 L RBC 5.15 Hgb 12.8 Hct 40.8 MCV 79.3 L MCH 24.9 L MCHC 31.4 L RDW 21.3 H Plt Count 176 MPV 8.8 Neut % (Auto) 87.9 H Lymph % (Auto) 8.5 L [place] % (Auto) 3.3 Eos % (Auto) 0.1 Baso % (Auto) 0.2 Neut # (Auto) 4.0 Lymph # (Auto) 0.4 L [place] # (Auto) 0.2 Eos # (Auto) 0.0 Baso # (Auto) 0.0 Neutrophils % (Manual) 93 H Lymphocytes % (Manual) 4 L Monocytes % (Manual) 3 Platelet Estimate Normal Large Platelets Present Giant Platelets Present Anisocytosis (manual) Moderate Ovalocytes Slight pCO2 pO2 HCO3 ABG pH ABG Total CO2 ABG O2 Saturation ABG O2 Content ABG Base Excess ABG Hemoglobin ABG Carboxyhemoglobin POC ABG HHb (Measured) ABG Methemoglobin ABG O2 Capacity Homero Test A-a O2 Difference Hgb O2 Saturation FiO2 Sodium 135 Potassium 4.3 Chloride 92 L Carbon Dioxide 37 H Anion Gap 10 BUN 27 H Creatinine 0.9 Est GFR ( Amer) > 60 Est GFR (Non-Af Amer) > 60 Random Glucose 117 H Calcium 8.1 L Total Bilirubin 2.0 H AST 29 ALT 40 Alkaline Phosphatase 85 Troponin I NT-Pro-B Natriuret Pep 4110 H Total Protein 6.9 Albumin 3.3 L Globulin 3.6 Albumin/Globulin Ratio 0.9 L
--- NOTE | 2018-09-25 10:07 | CARD ---
APPROVED REPORT Date of service: 09/24/2018 EKG Measurement Heart [id number] MD [id number] <Conclusion> Sinus rhythm with premature atrial complexes Rightward axis Low voltage QRS Cannot rule out Anteroseptal infarct, age undetermined Abnormal ECG
--- NOTE | 2018-09-25 21:14 | CON ---
DATE: 09/25/2018 HISTORY OF PRESENT ILLNESS: Ms. Brody is a 67-year-old female who was referred for pulmonary evaluation by Dr. Domingo. She was admitted via the emergency room following an episode of dizziness and shortness of breath after she took a dose of Lasix for swelling of the legs. She was recently discharged from [facility] following multiple admissions in the past several weeks for cellulitis of abdominal wall, obstructive sleep apnea syndrome, chronic obstructive pulmonary disease, accidental fall at home with dizziness and recently, she has been to the emergency room with severe constipation and abdominal pain. PAST MEDICAL HISTORY: As mentioned above. FAMILY HISTORY: Noncontributory. SOCIAL HISTORY: She used to smoke heavily in the past but quit. REVIEW OF SYSTEMS: Essentially remarkable for occasional shortness of breath and a blood pressure that is on the low side. PHYSICAL EXAMINATION: GENERAL: The patient is alert and oriented, morbidly obese. Denies chest pain, shortness of breath or headaches. VITAL SIGNS: Blood pressure 119/77 on admission, pulse of 66, respiratory rate 18, temperature 98.2 degrees Fahrenheit, O2 sat 92% on room air. SKIN: Shows fair turgor. HEENT: Pupils are equal and reactive to light and accommodation. JVP flat. Mouth has fair hygiene. LUNGS: Fair aeration with some basal dullness. HEART: Regular, no murmurs or gallop. BREAST: Normal. ABDOMEN: Soft, nontender, no organomegaly. EXTREMITIES: Shows 1+ pitting pedal edema. CENTRAL NERVOUS SYSTEM: Grossly intact. LABORATORY DATA: WBC 4.5, hemoglobin 12.8, platelet count 176,000. Arterial blood gas pH 7.4, pCO2 of 64, pO2 of 60, O2 sat 89.1. Sodium 135, potassium 4.3, BUN 27, creatinine 0.9. Pro BMP 4110. CT scan of the head was unremarkable. IMPRESSION: Chronic obstructive pulmonary disease with mild exacerbation, fall at home with cerebral contusion, history of obstructive sleep apnea syndrome, morbid obesity, history of pulmonary hypertension, history of hypertension, controlled on medications but medications are to be discontinued because of hypotension, history of accidental fall with cerebral contusion. PLAN: Monitor the patient in telemetry. Continue BiPAP therapy with oxygen. Continue neuro checks. The patient advised to go to subacute care but refused. It will be okay to discharge the patient in a.m. if cleared by Cardiology. She will attempt to obtain a BiPAP machine as an outpatient and further therapy will depend on clinical findings. We will continue to follow with you. Oneil Reinoso MD
--- NOTE | 2018-09-26 00:40 | CP.PCM.HP ---
History of Present Illness - History of Present Illness History of Present Illness: HPI: 67 year old obese female pt with a PMH of HTN, sleep apnea, and COPD presented to the ED s/p syncopal episode with associated LOC. As per the pt, she had recently noticed new onset BLE edema, prompting her to take an old Lasix pill. Shortly after this, she experienced the syncopal episode upon standing. PMH: Anxiety, COPD, Depression, Fractures (right arm), HTN, Sleep Apnea. PSH: Appendectomy, Cholecystectomy, Tonsillectomy. Allergies: Iodine, PCN, sulfa antibiotics, tetanus & diphtheria toxoids, diphenhydramine. Subjective Review of Systems: Reviewed and no additional remarkable complaints noted. Objective Vital Signs Stable Appears: Non-toxic, No Acute Distress. Head Exam: NORMAL INSPECTION, normocephalic. Eye Exam: Normal eye inspection, EOMI, PERRLA. Respiratory Exam: NORMAL BREATHING PATTERN, breath sounds mildly diminished at bases. Cardiovascular Exam: S1, S2. RRR. GI & Abdominal Exam: Round, soft, non-tender, non-distended. Neurological Exam: Alert, Awake, Oriented x3. Musculoskeletal Exam: 5/5 BUE strength, 5/5 BLE strength. Psychiatric exam: Normal Affect, Normal Mood, Calm and cooperative. Skin Exam: Pallor, Warm, Dry. Assessment/Impression/Plan: 1.) Syncope -Likely due to orthostatic hypotension secondary to Lasix/diuretic use. -ABGS revealed hypoxia/hypercapnia, likely due to obstructive sleep apnea. As per the pt, she is in the process of obtaining a BIPAP machine, and was schedu led to pick one up today. -Cardiology and pulmonology consult input appreciated. -Continue current tx; if no acute overnight events are reported, the pt is medically cleared for discharge in the morning. Present on Admission - Present on Admission Any Indicators Present on Admission: No Past Patient History - Infectious Disease Hx of Infectious Diseases: None - Tetanus Immunizations Tetanus Immunization: Unknown - Past Medical History & Family History Past Medical History?: Yes - Past Social History Smoking Status: Never Smoked - CARDIAC Hx Cardiac Disorders: Yes Hx Hypertension: Yes - PULMONARY Hx Respiratory Disorders: Yes Hx Chronic Obstructive Pulmonary Disease (COPD): Yes Hx Sleep Apnea: Yes - NEUROLOGICAL Hx Neurological Disorder: No (unknown) - HEENT Hx HEENT Problems: No - RENAL Hx Chronic Kidney Disease: No - ENDOCRINE/METABOLIC Hx Endocrine Disorders: Yes Hx Diabetes Mellitus Type 2: Yes - HEMATOLOGICAL/ONCOLOGICAL Hx Human Immunodeficiency Virus (HIV): No - INTEGUMENTARY Hx Dermatological Problems: No - MUSCULOSKELETAL/RHEUMATOLOGICAL Hx Falls: Yes Hx Fractures: Yes (right arm) - GASTROINTESTINAL Hx Gastrointestinal Disorders: No - GENITOURINARY/GYNECOLOGICAL Hx Genitourinary Disorders: No - PSYCHIATRIC Hx Psychophysiologic Disorder: Yes Hx Anxiety: Yes Hx Depression: Yes Hx Substance Use: No - SURGICAL HISTORY Hx Surgeries: Yes Hx Appendectomy: Yes Hx Cholecystectomy: Yes Hx Tonsillectomy: Yes - ANESTHESIA Hx Anesthesia: Yes Hx Anesthesia Reactions: No Hx Malignant Hyperthermia: No Has any member of the family had a problem w/ anesthesia?: No Meds Allergies/Adverse Reactions: Allergies Allergy/AdvReac Type Severity Reaction Status Date / Time iodine Allergy RASH Verified 09/12/18 14:11 Penicillins Allergy RASH Verified 09/12/18 14:11 Sulfa (Sulfonamide Allergy RASH Verified 09/12/18 14:11 Antibiotics) tetanus and diphtheria Allergy SWELLING Verified 09/12/18 14:11 toxoids [tetanus & diphtheria toxoids] diphenhydramine AdvReac Tachycardia Verified 09/12/18 14:11 [From Benadryl] Results - Vital Signs Recent Vital Signs: Last Vital Signs Temp 97.5 F L 09/25/18 19:50 Pulse 85 09/25/18 23:56 Resp 20 09/25/18 19:50 BP 147/61 09/25/18 19:50 Pulse Ox 92 L 09/25/18 19:50 - Labs Result Diagrams: 09/25/18 04:30 09/25/18 04:30 Labs: Laboratory Results - last 24 hr 09/25/18 09/25/18 04:30 04:30 WBC 4.5 L RBC 5.15 Hgb 12.8 Hct 40.8 MCV 79.3 L MCH 24.9 L MCHC 31.4 L RDW 21.3 H Plt Count 176 MPV 8.8 Neut % (Auto) 87.9 H Lymph % (Auto) 8.5 L [place] % (Auto) 3.3 Eos % (Auto) 0.1 Baso % (Auto) 0.2 Neut # (Auto) 4.0 Lymph # (Auto) 0.4 L [place] # (Auto) 0.2 Eos # (Auto) 0.0 Baso # (Auto) 0.0 Neutrophils % (Manual) 93 H Lymphocytes % (Manual) 4 L Monocytes % (Manual) 3 Platelet Estimate Normal Large Platelets Present Giant Platelets Present Anisocytosis (manual) Moderate Ovalocytes Slight Sodium 135 Potassium 4.3 Chloride 92 L Carbon Dioxide 37 H Anion Gap 10 BUN 27 H Creatinine 0.9 Est GFR ( Amer) > 60 Est GFR (Non-Af Amer) > 60 Random Glucose 117 H Calcium 8.1 L Total Bilirubin 2.0 H AST 29 ALT 40 Alkaline Phosphatase 85 NT-Pro-B Natriuret Pep 4110 H Total Protein 6.9 Albumin 3.3 L Globulin 3.6 Albumin/Globulin Ratio 0.9 L Assessment & Plan (1) Syncope Status: Acute
[2018-09-26 00:57] VITALS: RESP 18
[2018-09-26] MEDS: Pantoprazole 40 mg EC Tab PO SCH (08:45)
[2018-09-26] MEDS: Enoxaparin 40 mg Syringe SC SCH (08:46)
--- NOTE | 2018-09-26 09:22 | CP.PCM.PN ---
Subjective - Date & Time of Evaluation Date of Evaluation: 09/26/18 Time of Evaluation: 08:30 - Subjective Subjective: The patient was found sitting up in the bed talking to her daughter who was visiting. The patient was able to get out of bed and walk to the bathroom on number of occasions during the course of the day yesterday and has actually walked to the bathroom again this morning without any sense of lightheadedness. The telemetry shows steady sinus rhythm with occasional premature atrial beats. No supraventricular tachycardias were detected. Rest of her physical examination was unchanged The patient may be allowed to return home taking her present medications. I have instructed her to avoid furosemide. The patient is in the process of obtaining a CPAP machine and seeing a surgeon for the gastric bypass procedure. Patient's care was discussed with her and her daughter today. Objective - Vital Signs/Intake and Output Vital Signs (last 24 hours): Temp Pulse Resp BP Pulse Ox 97.4 F L 91 H 18 143/93 H 91 L 09/26/18 08:00 09/26/18 08:00 09/26/18 08:00 09/26/18 08:00 09/26/18 08:00 - Medications Medications: Current Medications Albuterol/Ipratropium (Duoneb 3 Mg/0.5 Mg (3 Ml) Ud) 3 ml INH RQ4 PRN PRN Reason: Shortness of Breath Alprazolam (Xanax) 2 mg PO Q6 PRN PRN Reason: Anxiety Aspirin (Ecotrin) 81 mg PO DAILY [facility] Last Admin: 09/26/18 08:45 Dose: 81 mg Enoxaparin Sodium (Lovenox) 40 mg SC DAILY [facility]; Protocol Last Admin: 09/26/18 08:46 Dose: 40 mg Lactulose (Enulose) 20 gm PO DAILY PRN PRN Reason: Constipation Ondansetron HCl (Zofran Inj) 4 mg IVP Q6 PRN PRN Reason: Nausea/Vomiting Pantoprazole Sodium (Protonix Ec Tab) 40 mg PO DAILY [facility] Last Admin: 09/26/18 08:45 Dose: 40 mg Paroxetine HCl (Paxil) 30 mg PO DAILY [facility] Last Admin: 09/26/18 08:45 Dose: 30 mg - Labs Labs: 09/25/18 04:30 09/25/18 04:30
--- NOTE | 2018-09-26 11:25 | CP.PCM.PCO ---
Assessment/Plan - Assessment and Plan (Free Text) Assessment: I have evaluated patient on 09/26/2018 in [facility]. Due to the patient's diagnosis of systolic chf, copd, severe sleep apnea, pulmonary hypertension, morbid obesity, patient requires the head of the bed to be elevated more than 30 degrees most of the time. Furthermore, patient requires frequent positioning of the body to way not feasible with an ordinary bed in order to relieve her symptoms of shortness of breath. Due to patient's progressive disease progress of COPD, I feel nocturnal ventilation is warranted at this time. Bipap was tried and proved to be ineffective in managing patient's condition. Without NIV patient's condition will continue to deteriorate which may lead to medical harm.
[2018-09-26 11:41] VITALS: BP 145/94; PULSE 87; TEMP 97.3; O2SAT 95
--- NOTE | 2018-09-26 19:31 | CP.PCM.DIS ---
Provider - Provider Date of Admission: 09/24/18 18:23 Attending physician: Hector Domingo MD Consults: 09/24/18 18:23 Pulmonology Consult Stat Comment: Consulting Provider: Oneil Reinoso I Consulting Physician: Oneil Reinoso I Reason for Consult: COPD 09/24/18 18:25 Cardiology Consult Stat Comment: Consulting Provider: Ace Horton V Consulting Physician: Ace Horton V Reason for Consult: syncope Time Spent in preparation of Discharge (in minutes): 30 Diagnosis - Discharge Diagnosis (1) Syncope Status: Acute Hospital Course - Lab Results Lab Results: Most Recent Lab Values WBC 4.5 K/uL (4.8-10.8) L 09/25/18 04:30 RBC 5.15 Mil/uL (3.80-5.20) 09/25/18 04:30 Hgb 12.8 g/dL (12.0-16.0) 09/25/18 04:30 Hct 40.8 % (34.0-47.0) 09/25/18 04:30 MCV 79.3 fl (81.0-99.0) L 09/25/18 04:30 MCH 24.9 pg (27.0-31.0) L 09/25/18 04:30 MCHC 31.4 g/dL (33.0-37.0) L 09/25/18 04:30 RDW 21.3 % (11.5-14.5) H 09/25/18 04:30 Plt Count 176 K/uL (130-400) 09/25/18 04:30 MPV 8.8 fl (7.2-11.7) 09/25/18 04:30 Neut % (Auto) 87.9 % (50.0-75.0) H 09/25/18 04:30 Lymph % (Auto) 8.5 % (20.0-40.0) L 09/25/18 04:30 [place] % (Auto) 3.3 % (0.0-10.0) 09/25/18 04:30 Eos % (Auto) 0.1 % (0.0-4.0) 09/25/18 04:30 Baso % (Auto) 0.2 % (0.0-2.0) 09/25/18 04:30 Neut # (Auto) 4.0 K/uL (1.8-7.0) 09/25/18 04:30 Lymph # (Auto) 0.4 K/uL (1.0-4.3) L 09/25/18 04:30 [place] # (Auto) 0.2 K/uL (0.0-0.8) 09/25/18 04:30 Eos # (Auto) 0.0 K/uL (0.0-0.7) 09/25/18 04:30 Baso # (Auto) 0.0 K/uL (0.0-0.2) 09/25/18 04:30 Neutrophils % (Manual) 93 % (42-75) H 09/25/18 04:30 Lymphocytes % (Manual) 4 % (20-50) L 09/25/18 04:30 Monocytes % (Manual) 3 % (0-10) 09/25/18 04:30 Platelet Estimate Normal (NORMAL) 09/25/18 04:30 Large Platelets Present 09/25/18 04:30 Giant Platelets Present 09/25/18 04:30 Anisocytosis (manual) Moderate 09/25/18 04:30 Ovalocytes Slight 09/25/18 04:30 pCO2 64 mm/Hg (35-45) H 09/24/18 16:59 pO2 60 mm/Hg (80-100) L 09/24/18 16:59 HCO3 34.0 mmol/L (21-28) H 09/24/18 16:59 ABG pH 7.40 (7.35-7.45) 09/24/18 16:59 ABG Total CO2 41.6 mmol/L (22-28) H 09/24/18 16:59 ABG O2 Saturation 94.8 % (95-98) L 09/24/18 16:59 ABG O2 Content 17.3 ML/dL (15-23) 09/24/18 16:59 ABG Base Excess 11.9 mmol/L (-2.0-3.0) H 09/24/18 16:59 ABG Hemoglobin 13.8 g/dL (11.7-17.4) 09/24/18 16:59 ABG Carboxyhemoglobin 3.7 % (0.5-1.5) H 09/24/18 16:59 POC ABG HHb (Measured) 4.9 % (0.0-5.0) 09/24/18 16:59 ABG Methemoglobin 2.3 % (0.0-3.0) 09/24/18 16:59 ABG O2 Capacity 18.2 mL/dL (16-24) 09/24/18 16:59 Homero Test Yes 09/24/18 16:59 A-a O2 Difference 60.0 mm/Hg 09/24/18 16:59 Hgb O2 Saturation 89.1 % (95.0-98.0) L 09/24/18 16:59 FiO2 28.0 % 09/24/18 16:59 Sodium 135 mmol/l (132-148) 09/25/18 04:30 Potassium 4.3 MMOL/L (3.6-5.0) 09/25/18 04:30 Chloride 92 mmol/L (98-107) L 09/25/18 04:30 Carbon Dioxide 37 mmol/L (22-30) H 09/25/18 04:30 Anion Gap 10 (10-20) 09/25/18 04:30 BUN 27 mg/dl (7-17) H 09/25/18 04:30 Creatinine 0.9 mg/dl (0.7-1.2) 09/25/18 04:30 Est GFR ( Amer) > 60 09/25/18 04:30 Est GFR (Non-Af Amer) > 60 09/25/18 04:30 Random Glucose 117 mg/dL (65-105) H 09/25/18 04:30 Calcium 8.1 mg/dL (8.4-10.2) L 09/25/18 04:30 Total Bilirubin 2.0 mg/dl (0.2-1.3) H 09/25/18 04:30 AST 29 U/L (14-36) 09/25/18 04:30 ALT 40 U/L (9-52) 09/25/18 04:30 Alkaline Phosphatase 85 U/L (38-126) 09/25/18 04:30 Troponin I 0.0180 ng/mL (0.00-0.120) 09/24/18 16:31 NT-Pro-B Natriuret Pep 4110 pg/ml (0-900) H 09/25/18 04:30 Total Protein 6.9 G/DL (6.3-8.2) 09/25/18 04:30 Albumin 3.3 g/dL (3.5-5.0) L 09/25/18 04:30 Globulin 3.6 gm/dL (2.2-3.9) 09/25/18 04:30 Albumin/Globulin Ratio 0.9 (1.0-2.1) L 09/25/18 04:30 - Hospital Course Hospital Course: 67 year old obese female pt with a PMH of HTN, sleep apnea, and COPD presented to the ED s/p syncopal episode Cardiology and pulmonary was consulted recommendations to d/c diuretics and NIV is needed Patient was discharged in stable condition and to follow up with pulmonology, cardiology, and PCP in 1 wk Discharge Exam - Head Exam Head Exam: ATRAUMATIC, NORMAL INSPECTION, NORMOCEPHALIC - Eye Exam Eye Exam: Normal appearance - Respiratory Exam Respiratory Exam: NORMAL BREATHING PATTERN - Cardiovascular Exam Cardiovascular Exam: +S1, +S2 - Neurological Exam Neurological exam: Alert, Oriented x3 - Psychiatric Exam Psychiatric exam: Normal Affect, Normal Mood - Skin Skin Exam: Normal Color, Warm Discharge Plan - Follow Up Plan Condition: STABLE Disposition: HOME/ ROUTINE Instructions: Syncope (Fainting) (DC) Additional Instructions: follow up with in 1 week Referrals: Ace Horton MD [Staff Provider] - Oneil Reinoso MD [Family Provider] -
== END 2018-09-26 13:50 | disposition home health service (06) ==
LOC: H.ER 14:28 → H.ERHOLD 18:23 → H.TEL 22:49
PROVIDERS: ADMIT Family Medicine; ATTEND Family Medicine
DX: I95.1 Orthostatic hypotension (principal); J44.1 Chronic obstructive pulmonary disease with (acute) exacerbation; E66.01 Morbid (severe) obesity due to excess calories; Z68.43 Body mass index [BMI] 50.0-59.9, adult; G47.33 Obstructive sleep apnea (adult) (pediatric); I27.21 Secondary pulmonary arterial hypertension; I50.20 Unspecified systolic (congestive) heart failure; I11.0 Hypertensive heart disease with heart failure; R09.02 Hypoxemia; E11.9 Type 2 diabetes mellitus without complications; F41.9 Anxiety disorder, unspecified; Z99.81 Dependence on supplemental oxygen; Z98.84 Bariatric surgery status; Z91.81 History of falling; Z87.891 Personal history of nicotine dependence; Z88.0 Allergy status to penicillin; Z88.2 Allergy status to sulfonamides; Z91.041 Radiographic dye allergy status; Z79.82 Long term (current) use of aspirin
CPT/HCPCS: 36415; 70450; 80048; 80053; 82803; 83880; 84484; 85025; 93005; 94660; 96374; 99285; G0378; J1650; J1940; J2930

== ENCOUNTER 2018-10-07 13:20 | Inpatient (IN) | payer MEDICARE, MEDICAID ==
--- NOTE | 2018-10-07 13:40 | ED PDOC ---
HPI: SOB/CHF/COPD Time Seen by Provider: 10/07/18 13:28 Chief Complaint (Nursing): Shortness Of Breath History Per: Patient, Family History/Exam Limitations: no limitations Additional Complaint(s): 67 y/o female presents to the ED complaining of shortness of breath since she was last discharged September 26. Daughter states since then patient couldnt breathe and has a history of sleep apnea reason why patient needed to get a bipap machine. Patient has increased swelling on lower extremities and has trouble breathing. Patient denies any fever. no chest pain. PMD: Oneil Ludwig I Past Medical History Reviewed: Historical Data, Nursing Documentation, Vital Signs Vital Signs: Last Vital Signs Temp 97.9 F 10/07/18 13:25 Pulse 98 H 10/07/18 13:25 Resp 24 10/07/18 13:25 BP Pulse Ox - Medical History PMH: Anxiety, CHF, COPD, Depression, Fractures (right arm), HTN, Sleep Apnea Denies: HIV, Chronic Kidney Disease Other PMH: Lupus, obsety - Surgical History Surgical History: Appendectomy, Cholecystectomy, Tonsillectomy - Family History Family History: States: Unknown Family Hx - Home Medications Home Medications: Ambulatory Orders Medication Instructions Recorded Aspirin [Ecotrin] 81 mg PO DAILY 09/01/18 PARoxetine [Paxil] 30 mg PO DAILY tab 09/04/18 - Allergies Allergies/Adverse Reactions: Allergies Allergy/AdvReac Type Severity Reaction Status Date / Time iodine Allergy RASH Verified 09/12/18 14:11 Penicillins Allergy RASH Verified 09/12/18 14:11 Sulfa (Sulfonamide Allergy RASH Verified 09/12/18 14:11 Antibiotics) tetanus and diphtheria Allergy SWELLING Verified 09/12/18 14:11 toxoids [tetanus & diphtheria toxoids] diphenhydramine AdvReac Tachycardia Verified 09/12/18 14:11 [From Benadryl] Review of Systems ROS Statement: Except As Marked, All Systems Reviewed And Found Negative Constitutional: Negative for: Fever Respiratory: Positive for: Shortness of Breath Physical Exam - Reviewed Nursing Documentation Reviewed: Yes Vital Signs Reviewed: Yes - Physical Exam Appears: Positive for: Well (obese), Non-toxic, Uncomfortable (mild tachypnea, inability to lie flat, lying on side) Head Exam: Positive for: ATRAUMATIC, NORMOCEPHALIC Skin: Positive for: Normal Color, Warm, Dry Eye Exam: Positive for: EOMI, Normal appearance, PERRL ENT: Positive for: Normal ENT Inspection Neck: Positive for: Normal, Painless ROM, Supple Cardiovascular/Chest: Positive for: Regular Rate, Rhythm. Negative for: Murmur Respiratory: Positive for: Normal Breath Sounds, Crackles Gastrointestinal/Abdominal: Positive for: Normal Exam, Soft. Negative for: Tenderness Back: Positive for: Normal Inspection. Negative for: L CVA Tenderness, R CVA Tenderness Extremity: Positive for: Normal ROM, Pedal Edema (2+), Capillary Refill (less than 2 s), Swelling (Bilateral lower extremity ). Negative for: Calf Tenderness, Deformity Neurological/Psych: Positive for: Awake, Alert, Normal Tone, Oriented (x3). Negative for: Motor/Sensory Deficits Comments: Patient is obese. Difficult to hear lungs. Tips of fingers are white, according to patient's daughter that is normal. - Laboratory Results Result Diagrams: 10/08/18 05:20 10/08/18 05:20 - Radiology X-Ray: Read By Radiologist (plsueral effuction) - Progress Condition: Improving,but remains with symptoms - Critical Care Total Time (In Min): 45 Medical Decision Making Medical Decision Making: Time: 1327 Initial Impression: chf vs copd exacerbation rule out pneumonia Initial Plan: -EKG [address] Reinoso who said patient has not followed up in the office and patient to be admitted to medical services. Dr. Roa will be made aware. 1627 Spoke to MISSY Quiroz who works with Dr. Roa and accepts patient for admission. ---- Scribe Attestation: Documented by Amalia Douglas, acting as a scribe for Randall Connolly. Provider Scribe Attestation: All medical record entries made by the Scribe were at my direction and personally dictated by me. I have reviewed the chart and agree that the record accurately reflects my personal performance of the history, physical exam, medical decision making, and the department course for this patient. Time: 1758 -- Spoke to Dr. Horton wrist closer for pt who is aware of the patient. pt given lasix with some improvement in symptoms also started on BIPAP to assist with breathing. ABG ordered. ordered solumbedrol however pt states she gets bad reaction to that, but can take oral prednisone so ordered that instead. DX COPD/CHF exacerbation admit to telemetry for cardiac monitoring Scribe Attestation: Documented by Bettye Woo, acting as a scribe forRandall Connolly MD. Provider Scribe Attestation: All medical record entries made by the Scribe were at my direction and personally dictated by me. I have reviewed the chart and agree that the record accurately reflects my personal performance of the history, physical exam, medical decision making, and the department course for this patient. I have also personally directed, reviewed, and agree with the discharge instructions and disposition. Disposition - Clinical Impression Clinical Impression: Chronic congestive heart failure, COPD (chronic obstructive pulmonary disease) - Patient ED Disposition Is Patient to be Admitted: Yes Counseled Patient/Family Regarding: Studies Performed, Diagnosis - Disposition Disposition Time: 17:55 Condition: FAIR
[2018-10-07 13:59] LABS: BASO % 0.5 % (0.0-2.0); EOS # 0.1 K/uL (0.0-0.7); HEMOGLOBIN 13.6 g/dL (12.0-16.0); LYMPH # 0.7 K/uL (1.0-4.3); LYMPH % 11.6 % (20.0-40.0); MEAN CELL VOLUME 78.5 fl (81.0-99.0); MEAN CORPUSCULAR HEMOGLOBIN 25.1 pg (27.0-31.0); MEAN PLATELET VOLUME 8.5 fl (7.2-11.7); MONO # 0.9 K/uL (0.0-0.8); MONO % 13.6 % (0.0-10.0); NEUT # 4.7 K/uL (1.8-7.0); NEUT % 73.3 % (50.0-75.0); NRBC % 0.3 % (0.0-0.0); RBC 5.42 Mil/uL (3.80-5.20); RED CELL DISTRIBUTION WIDTH 25.4 % (11.5-14.5); WHITE BLOOD COUNT 6.4 K/uL (4.8-10.8)
[2018-10-07 14:06] LABS: ABG ALLEN TEST YES; ARTERIAL BLOOD GAS HCO3 31.9 mmol/L (21-28); ARTERIAL BLOOD GAS O2 SAT 94.6 % (95-98); ARTERIAL BLOOD GAS PCO2 62 mm/Hg (35-45); ARTERIAL BLOOD GAS PH 7.38 (7.35-7.45); ARTERIAL BLOOD GAS PO2 57 mm/Hg (80-100); ARTERIAL BLOOD GAS TCO2 38.6 mmol/L (22-28)
--- NOTE | 2018-10-07 14:32 | RAD ---
Date of service: 10/07/2018 HISTORY: sob COMPARISON: 09/14/2018 TECHNIQUE: 1 view obtained. FINDINGS: LUNGS: No active pulmonary disease. Evaluation limited due to oblique positioning. PLEURA: Small to moderate right pleural effusion. No left pleural effusion. No pneumothorax. CARDIOVASCULAR: No aortic atherosclerotic calcification present. Normal cardiac size. No pulmonary vascular congestion. OSSEOUS STRUCTURES: No significant abnormalities. VISUALIZED UPPER ABDOMEN: Normal. OTHER FINDINGS: None. IMPRESSION: Small to moderate right pleural effusion. Otherwise unremarkable.
[2018-10-07 15:43] LABS: B-TYPE NATRIURETIC PEPTIDE 3330 pg/ml (0-900)
[2018-10-07 15:49] LABS: ALB/GLOB RATIO 0.9 (1.0-2.1); ALBUMIN 3.9 g/dL (3.5-5.0); ALT/SGPT 43 U/L (9-52); AST/SGOT 55 U/L (14-36); BLOOD UREA NITROGEN 18 mg/dl (7-17); CALCIUM 8.8 mg/dL (8.4-10.2); GFR NON-AFRICAN AMERICAN > 60
--- NOTE | 2018-10-07 18:59 | CARD ---
APPROVED REPORT Date of service: 10/07/2018 EKG Measurement Heart [id number] <Conclusion> Sinus rhythm with occasional premature atrial complexes Low voltage QRS Possible Anterolateral infarct, age undetermined Abnormal ECG
[2018-10-07] MEDS ORDERED: Albuterol-Ipratrop 3 mg / 0.5 (3 ml) UD INH PRN (20:25)
[2018-10-07 21:28] VITALS: BMI 51.6
[2018-10-08 05:59] LABS: BASO % 0.6 % (0.0-2.0); EOS # 0.1 K/uL (0.0-0.7); EOS % 1.9 % (0.0-4.0); LYMPH # 0.6 K/uL (1.0-4.3); LYMPH % 11.1 % (20.0-40.0); MEAN CORPUSCULAR HEMOGLOBIN 24.9 pg (27.0-31.0); MEAN CORPUSCULAR HGB CONC 30.8 g/dL (33.0-37.0); MEAN PLATELET VOLUME 8.1 fl (7.2-11.7); MONO # 0.7 K/uL (0.0-0.8); MONO % 13.6 % (0.0-10.0); NEUT # 3.8 K/uL (1.8-7.0); NEUT % 72.8 % (50.0-75.0); NRBC % 0.2 % (0.0-0.0); RBC 5.21 Mil/uL (3.80-5.20); WHITE BLOOD COUNT 5.2 K/uL (4.8-10.8)
[2018-10-08 06:10] LABS: ALB/GLOB RATIO 0.9 (1.0-2.1); ALBUMIN 3.3 g/dL (3.5-5.0); ALT/SGPT 45 U/L (9-52); AST/SGOT 39 U/L (14-36); BLOOD UREA NITROGEN 18 mg/dl (7-17); CALCIUM 8.6 mg/dL (8.4-10.2); GFR NON-AFRICAN AMERICAN > 60
[2018-10-08 06:13] LABS: B-TYPE NATRIURETIC PEPTIDE 3210 pg/ml (0-900)
[2018-10-08 06:27] LABS: MEAN CELL VOLUME 80.6 fl (81.0-99.0)
[2018-10-08] MEDS: Enoxaparin 40 mg Syringe SC SCH (10:26)
[2018-10-08] MEDS: MethylPREDNISolone 40 mg Vial IVP SCH ×2 (10:28→19:00)
[2018-10-08] MEDS: Albuterol-Ipratrop 3 mg / 0.5 (3 ml) UD INH SCH ×3 (11:12→19:02)
--- NOTE | 2018-10-08 12:23 | CP.PCM.CON ---
History of Present Illness - History of Present Illness History of Present Illness: This 67-year-old female who has had repeated hospitalizations over the last 2 months has come back to the emergency room complaining of difficulty in breathing and swollen legs. The patient has been severely overweight and obese she has obstructive sleep apnea and hypoxia hypercapnia syndrome with severe pulmonary hypertension and right ventricular dysfunction. The patient has not been able to obtain a CPAP machine and got frightened and came to the emergency room complaining of difficulty in breathing. Physical examination shows an anxious female who reports that she wishes to return home. Her telemetry shows stable sinus rhythm with rare isolated premature atrial beats. She appears anxious and breathes at 16 breaths/min and her heart rate was 82 bpm regular with a blood pressure of 110/70 mmHg. Her jugular venous pressure could not be evaluated because of a short thick neck. There was minimal pitting edema over both lower extremities. Extremities were warm nailbeds were pink. There was no central or peripheral cyanosis. There was no clubbing. The apex was not palpable. The first and second heart sounds were distant. There was no gallop rhythm. There were no rales or wheeze. Her electrocardiogram showed sinus rhythm with low QRS voltage detected on earlier cardiograms as well. There was right axis deviation. There are there was poor R wave progression in V1 to V5. Her chest x-ray and labs were noted. Impression: Pathological obesity with obstructive sleep apnea and hypoxia hypercapnia syndrome with pulmonary hypertension and right ventricular dysfunc tion. The patient promises to get her CPAP machine at home and to proceed with her gastric bypass surgery to manage her obesity. Past Patient History - Infectious Disease Hx of Infectious Diseases: None - Tetanus Immunizations Tetanus Immunization: Unknown - Past Medical History & Family History Past Medical History?: Yes - Past Social History Smoking Status: Never Smoked - CARDIAC Hx Congestive Heart Failure: Yes Hx Hypertension: Yes - PULMONARY Hx Chronic Obstructive Pulmonary Disease (COPD): Yes Hx Sleep Apnea: Yes - NEUROLOGICAL Hx Neurological Disorder: No (unknown) - HEENT Hx HEENT Problems: No - RENAL Hx Chronic Kidney Disease: No - ENDOCRINE/METABOLIC Hx Endocrine Disorders: Yes Hx Diabetes Mellitus Type 2: Yes - HEMATOLOGICAL/ONCOLOGICAL Hx Human Immunodeficiency Virus (HIV): No - INTEGUMENTARY Hx Dermatological Problems: No - MUSCULOSKELETAL/RHEUMATOLOGICAL Hx Fractures: Yes (right arm) - GASTROINTESTINAL Hx Gastrointestinal Disorders: No - GENITOURINARY/GYNECOLOGICAL Hx Genitourinary Disorders: No - PSYCHIATRIC Hx Anxiety: Yes Hx Depression: Yes - SURGICAL HISTORY Hx Appendectomy: Yes Hx Cholecystectomy: Yes Hx Tonsillectomy: Yes - ANESTHESIA Hx Anesthesia: Yes Hx Anesthesia Reactions: No Hx Malignant Hyperthermia: No Meds Allergies/Adverse Reactions: Allergies Allergy/AdvReac Type Severity Reaction Status Date / Time iodine Allergy RASH Verified 09/12/18 14:11 Penicillins Allergy RASH Verified 09/12/18 14:11 Sulfa (Sulfonamide Allergy RASH Verified 09/12/18 14:11 Antibiotics) tetanus and diphtheria Allergy SWELLING Verified 09/12/18 14:11 toxoids [tetanus & diphtheria toxoids] diphenhydramine AdvReac Tachycardia Verified 09/12/18 14:11 [From Benadryl] - Medications Medications: Current Medications Albuterol/Ipratropium (Duoneb 3 Mg/0.5 Mg (3 Ml) Ud) 3 ml INH RQ4 [facility] Last Admin: 10/08/18 11:12 Dose: 3 ml Aspirin (Ecotrin) 81 mg PO DAILY [facility] Last Admin: 10/08/18 10:26 Dose: 81 mg Enoxaparin Sodium (Lovenox) 40 mg SC DAILY [facility]; Protocol Last Admin: 10/08/18 10:26 Dose: 40 mg Methylprednisolone (Solu-Medrol) 80 mg IVP Q8H [facility] Last Admin: 10/08/18 10:28 Dose: 80 mg Paroxetine HCl (Paxil) 30 mg PO DAILY [facility] Last Admin: 10/08/18 10:26 Dose: 30 mg Results - Vital Signs Recent Vital Signs: Last Vital Signs Temp 98.1 F 10/08/18 11:48 Pulse 93 H 10/08/18 11:48 Resp 18 10/08/18 11:48 BP 118/79 10/08/18 11:48 Pulse Ox 92 L 10/08/18 11:48 - Labs Result Diagrams: 10/08/18 05:20 10/08/18 05:20 Labs: Laboratory Results - last 24 hr 10/07/18 10/07/18 10/07/18 13:00 14:03 14:52 WBC 6.4 RBC 5.42 H Hgb 13.6 Hct 42.5 MCV 78.5 L MCH 25.1 L MCHC 32.0 L RDW 25.4 H Plt Count 215 MPV 8.5 Neut % (Auto) 73.3 Lymph % (Auto) 11.6 L Rhea % (Auto) 13.6 H Eos % (Auto) 1.0 Baso % (Auto) 0.5 Neut # (Auto) 4.7 Lymph # (Auto) 0.7 L [place]hea # (Auto) 0.9 H Eos # (Auto) 0.1 Baso # (Auto) 0.0 pCO2 62 H pO2 57 L HCO3 31.9 H ABG pH 7.38 ABG Total CO2 38.6 H ABG O2 Saturation 94.6 L ABG Base Excess 9.2 H Homero Test Yes ABG Potassium 4.1 A-a O2 Difference 115.0 Sodium 133.0 134 Chloride 94.0 L 90 L Glucose 101 Lactate 2.0 Vent Mode Bipap Mechanical Rate 14 FiO2 35.0 Inspiratory BiPAP 12 Expiratory BiPAP 6 Potassium 4.0 Carbon Dioxide 32 H Anion Gap 16 BUN 18 H Creatinine 0.6 L Est GFR ( Amer) > 60 Est GFR (Non-Af Amer) > 60 Random Glucose 91 Calcium 8.8 Total Bilirubin 2.9 H AST 55 H D ALT 43 Alkaline Phosphatase 112 Troponin I 0.0220 NT-Pro-B Natriuret Pep 3330 H Total Protein 8.0 Albumin 3.9 Globulin 4.1 H Albumin/Globulin Ratio 0.9 L Arterial Blood Potassium 4.1 10/08/18 10/08/18 05:20 05:20 WBC 5.2 RBC 5.21 H Hgb 13.0 Hct 42.0 MCV 80.6 L D MCH 24.9 L MCHC 30.8 L RDW 24.0 H Plt Count 186 MPV 8.1 Neut % (Auto) 72.8 Lymph % (Auto) 11.1 L [place]hea % (Auto) 13.6 H Eos % (Auto) 1.9 Baso % (Auto) 0.6 Neut # (Auto) 3.8 Lymph # (Auto) 0.6 L Rhea # (Auto) 0.7 Eos # (Auto) 0.1 Baso # (Auto) 0.0 pCO2 pO2 HCO3 ABG pH ABG Total CO2 ABG O2 Saturation ABG Base Excess Homero Test ABG Potassium A-a O2 Difference Sodium 137 Chloride 91 L Glucose Lactate Vent Mode Mechanical Rate FiO2 Inspiratory BiPAP Expiratory BiPAP Potassium 3.5 L Carbon Dioxide 38 H Anion Gap 12 BUN 18 H Creatinine 0.6 L Est GFR ( Amer) > 60 Est GFR (Non-Af Amer) > 60 Random Glucose 88 Calcium 8.6 Total Bilirubin 2.4 H AST 39 H D ALT 45 Alkaline Phosphatase 97 Troponin I NT-Pro-B Natriuret Pep 3210 H Total Protein 7.0 Albumin 3.3 L Globulin 3.6 Albumin/Globulin Ratio 0.9 L Arterial Blood Potassium
[2018-10-08] MEDS ORDERED: methylPREDNISolone 80 MG in Sodium Chloride 0.9% 50 ML IVPB SCH (17:00)
--- NOTE | 2018-10-08 21:19 | CON ---
DATE: 10/08/2018 HISTORY OF PRESENT ILLNESS: Ms. Brody is a 67-year-old female who is referred for pulmonary evaluation by Dr. Roa. The patient was admitted via the emergency room because of progressively worsening shortness of breath, exercise intolerance, chest tightness, swelling of legs for the past several days prior to presentation. She has had multiple admissions to [facility] over the past several weeks for multiple medical problems including exacerbation of chronic obstructive pulmonary disease, syncopal episodes, accidental fall, cellulitis of her abdominal wall, and sleep apnea syndrome. She is poorly compliant to followup and medications and seems somewhat confused about her care. She follows up at [facility] and sees me on pulmonary consultation but has not shown up to the office for evaluation and therapy since last admission. She has not kept her appointment and indicates that she is scheduled for sleep studies in several days to help her obtain a BiPap machine. PAST MEDICAL HISTORY: Remarkable for chronic obstructive pulmonary disease, pulmonary hypertension, obstructive sleep apnea syndrome, morbid obesity, hypertension, congestive heart failure. She had a gastric bypass surgery years ago but gained back all the weight. FAMILY HISTORY: Nonrevealing. SOCIAL HISTORY: She indicates that she quit smoking years ago. Does not use drugs or alcohol and lives at home with her daughter. REVIEW OF SYSTEMS: Essentially remarkable for swelling of legs, shortness of breath, exercise intolerance. PHYSICAL EXAMINATION: GENERAL: The patient is morbidly obese. She is alert, oriented, appears to be much more comfortable today after use of BiPap machine. VITAL SIGNS: Blood pressure 127/78, pulse of 80, respiratory rate 18. She is febrile, O2 sat 97% with BiPap therapy. SKIN: Shows fair turgor. HEENT: Pupils are equal and reactive to light and accommodation. JVP flat. Mouth shows fair hygiene. LUNGS: Poor aeration bilaterally with scattered rales. HEART: S1, S2. ABDOMEN: Soft, nontender, no organomegaly. EXTREMITIES: Shows 1+ pitting pedal edema. CENTRAL NERVOUS SYSTEM: Exam grossly intact. LABORATORY DATA: Remarkable for WBC of 5.2, hemoglobin 13, platelet count of 186,000. Sodium 137, potassium 3.5, BUN 18, creatinine 0.6. ProBNP 3210, troponin 0.022. Arterial blood gas: pH 7.38, pCO2 of 62, pO2 of 57, O2 saturation 94.6. EKG: Sinus rhythm with occasional PVCs, low voltage, possible anterolateral ischemia, age undetermined. IMPRESSION: Acute exacerbation of chronic obstructive pulmonary disease with hypercapnic respiratory failure. Chest x-ray showing pulmonary congestion with pleural effusions, history of pulmonary hypertension, history of obstructive sleep apnea syndrome, morbid obesity, hypertension by history, and history of gastric bypass surgery in the past. PLAN: O2 supplementation, BiPap therapy at nighttime. We will continue aerosolized bronchodilators, IV steroids, IV diuretics. Cardiac evaluation already ordered. The patient advised compliance to medication and diet and she will need to go for sleep studies as an outpatient in attempts to obtain BiPap machine, that has already been set in motion by her primary care doctors at [facility]. We will continue to follow with you. The patient is also advised to go to subacute care prior to being discharged home this time and she seems to be agreeable. Oneil Reinoso MD MTDD
[2018-10-09] MEDS: Albuterol-Ipratrop 3 mg / 0.5 (3 ml) UD INH SCH ×6 (00:32→16:02)
--- NOTE | 2018-10-09 02:36 | CP.PCM.HP ---
History of Present Illness - History of Present Illness History of Present Illness: HPI: 67 year old obese female pt with a PMH of HTN, sleep apnea, and COPD presented to the ED for eval of shortness of breath. At this time, pt is still unable to obtain BIPAP machine, and as a result has hypoxic episodes. On arrival to ED, the pt showed signs of fluid overload, including worsening BLE edema and dyspnea. She was treated with Lasix and showed rapid improvement. Cardiology and pulmonology were consulted. PMH: Anxiety, COPD, Depression, Fractures (right arm), HTN, Sleep Apnea. PSH: Appendectomy, Cholecystectomy, Tonsillectomy. Allergies: Iodine, PCN, sulfa antibiotics, tetanus & diphtheria toxoids, diphenhydramine. Subjective Review of Systems: Reviewed and no additional remarkable complaints noted except for BLE weakness and fatigue. Objective Vital Signs Stable Appears: Non-toxic, No Acute Distress. Head Exam: NORMAL INSPECTION, normocephalic. Eye Exam: Normal eye inspection, EOMI, PERRLA. Respiratory Exam: NORMAL BREATHING PATTERN, breath sounds mildly diminished at bases. Cardiovascular Exam: S1, S2. RRR. GI & Abdominal Exam: Round, soft, non-tender, non-distended. Neurological Exam: Alert, Awake, Oriented x3. Musculoskeletal Exam: 5/5 BUE strength, 3/5 BLE strength. Psychiatric exam: Normal Affect, Normal Mood, Calm and cooperative. Skin Exam: Pallor, Warm, Dry. Assessment/Impression/Plan: 1.) COPD/CHF exacerbation -ProBNP was 3310 on admission and is trending downward. -Cardiology consult input appreciated. -Pt on BIPAP at night; has an appointment Sunday for sleep study and BIPAP fitting. -Pulmonology consult input appreciated. -On solumedrol 80 mg Q8h. -Procalcitonin negative; bacterial etiology not likely. -Continue current treatment. Present on Admission - Present on Admission Any Indicators Present on Admission: No Past Patient History - Infectious Disease Hx of Infectious Diseases: None - Tetanus Immunizations Tetanus Immunization: Unknown - Past Medical History & Family History Past Medical History?: Yes - Past Social History Smoking Status: Never Smoked - CARDIAC Hx Congestive Heart Failure: Yes Hx Hypertension: Yes - PULMONARY Hx Chronic Obstructive Pulmonary Disease (COPD): Yes Hx Sleep Apnea: Yes - NEUROLOGICAL Hx Neurological Disorder: No (unknown) - HEENT Hx HEENT Problems: No - RENAL Hx Chronic Kidney Disease: No - ENDOCRINE/METABOLIC Hx Endocrine Disorders: Yes Hx Diabetes Mellitus Type 2: Yes - HEMATOLOGICAL/ONCOLOGICAL Hx Human Immunodeficiency Virus (HIV): No - INTEGUMENTARY Hx Dermatological Problems: No - MUSCULOSKELETAL/RHEUMATOLOGICAL Hx Fractures: Yes (right arm) - GASTROINTESTINAL Hx Gastrointestinal Disorders: No - GENITOURINARY/GYNECOLOGICAL Hx Genitourinary Disorders: No - PSYCHIATRIC Hx Anxiety: Yes Hx Depression: Yes - SURGICAL HISTORY Hx Appendectomy: Yes Hx Cholecystectomy: Yes Hx Tonsillectomy: Yes - ANESTHESIA Hx Anesthesia: Yes Hx Anesthesia Reactions: No Hx Malignant Hyperthermia: No Meds Allergies/Adverse Reactions: Allergies Allergy/AdvReac Type Severity Reaction Status Date / Time iodine Allergy RASH Verified 09/12/18 14:11 Penicillins Allergy RASH Verified 09/12/18 14:11 Sulfa (Sulfonamide Allergy RASH Verified 09/12/18 14:11 Antibiotics) tetanus and diphtheria Allergy SWELLING Verified 09/12/18 14:11 toxoids [tetanus & diphtheria toxoids] diphenhydramine AdvReac Tachycardia Verified 09/12/18 14:11 [From Benadryl] Results - Vital Signs Recent Vital Signs: Last Vital Signs Temp 98.3 F 10/09/18 00:59 Pulse 89 10/09/18 00:59 Resp 20 10/09/18 00:59 BP 132/82 10/09/18 00:59 Pulse Ox 97 10/09/18 00:59 - Labs Result Diagrams: 10/08/18 05:20 10/08/18 05:20 Labs: Laboratory Results - last 24 hr 10/08/18 10/08/18 10/08/18 05:20 05:20 05:20 WBC 5.2 RBC 5.21 H Hgb 13.0 Hct 42.0 MCV 80.6 L D MCH 24.9 L MCHC 30.8 L RDW 24.0 H Plt Count 186 MPV 8.1 Neut % (Auto) 72.8 Lymph % (Auto) 11.1 L [place] % (Auto) 13.6 H Eos % (Auto) 1.9 Baso % (Auto) 0.6 Neut # (Auto) 3.8 Lymph # (Auto) 0.6 L [place] # (Auto) 0.7 Eos # (Auto) 0.1 Baso # (Auto) 0.0 Sodium 137 Potassium 3.5 L Chloride 91 L Carbon Dioxide 38 H Anion Gap 12 BUN 18 H Creatinine 0.6 L Est GFR ( Amer) > 60 Est GFR (Non-Af Amer) > 60 Random Glucose 88 Calcium 8.6 Total Bilirubin 2.4 H AST 39 H D ALT 45 Alkaline Phosphatase 97 NT-Pro-B Natriuret Pep 3210 H Total Protein 7.0 Albumin 3.3 L Globulin 3.6 Albumin/Globulin Ratio 0.9 L Procalcitonin < 0.05 L Assessment & Plan (1) Chronic congestive heart failure Status: Acute (2) COPD (chronic obstructive pulmonary disease) Status: Chronic
--- NOTE | 2018-10-09 08:48 | CP.PCM.PN ---
Subjective - Date & Time of Evaluation Date of Evaluation: 10/09/18 Time of Evaluation: 08:49 - Subjective Subjective: SHORTNESS OF BREATH IMPROVING PEDAL EDEMA LESS NO CHEST PAINS AGREES TO GO TO SUBACUTE CARE PRIOR TO BEING D/DONATO HOME DAUGHTER AT BEDSIDE AND CASE DISCUSSED WITH HER Objective - Vital Signs/Intake and Output Vital Signs (last 24 hours): Temp Pulse Resp BP Pulse Ox 98.2 F 99 H 18 135/82 98 10/09/18 07:51 10/09/18 07:51 10/09/18 07:51 10/09/18 07:51 10/09/18 07:51 - Medications Medications: Current Medications Albuterol/Ipratropium (Duoneb 3 Mg/0.5 Mg (3 Ml) Ud) 3 ml INH RQ4 [facility] Last Admin: 10/09/18 07:42 Dose: Not Given Aspirin (Ecotrin) 81 mg PO DAILY [facility] Last Admin: 10/08/18 10:26 Dose: 81 mg Enoxaparin Sodium (Lovenox) 40 mg SC DAILY [facility]; Protocol Last Admin: 10/08/18 10:26 Dose: 40 mg Methylprednisolone (Solu-Medrol) 80 mg IVP Q8H [facility] Last Admin: 10/09/18 00:19 Dose: Not Given Paroxetine HCl (Paxil) 30 mg PO DAILY [facility] Last Admin: 10/08/18 10:26 Dose: 30 mg - Labs Labs: 10/08/18 05:20 10/08/18 05:20 - Constitutional Appears: No Acute Distress - Head Exam Head Exam: ATRAUMATIC, NORMAL INSPECTION, NORMOCEPHALIC - Eye Exam Eye Exam: EOMI, Normal appearance, PERRL Pupil Exam: NORMAL ACCOMODATION, PERRL - ENT Exam ENT Exam: Mucous Membranes Moist, Normal Exam - Neck Exam Neck Exam: Full ROM, Normal Inspection. absent: Lymphadenopathy - Respiratory Exam Respiratory Exam: Prolonged Expiratory Phase, NORMAL BREATHING PATTERN - Cardiovascular Exam Cardiovascular Exam: REGULAR RHYTHM, +S1, +S2. absent: Murmur - GI/Abdominal Exam GI & Abdominal Exam: Soft, Normal Bowel Sounds. absent: Tenderness - Rectal Exam Rectal Exam: NORMAL INSPECTION - Extremities Exam Extremities Exam: Full ROM, Normal Capillary Refill, Normal Inspection, Pedal Edema. absent: Joint Swelling Additional comments: PEDAL EDEMA LESS - Back Exam Back Exam: NORMAL INSPECTION - Neurological Exam Neurological Exam: Alert, Awake, CN II-XII Intact, Normal Gait, Oriented x3 - Psychiatric Exam Psychiatric exam: Normal Affect, Normal Mood - Skin Skin Exam: Dry, Intact, Normal Color, Warm Assessment and Plan - Assessment and Plan (Free Text) Assessment: COPD EXACX IMPROVING HYPERCAPNEIC RESPIRATORY FAILURE IMPROVING MORBID OBESITY PULMONARY HTN OBSTRUCTIVE SLEEP APNEA SYNDROME PLEURAL EFFUSION POOR COMPLIANCE TO RX Plan: CONTINUE RX ORDERED AGREE WITH TRANSFER TO SUBACUTE CARE ONCE MEDICALLY STABLE
[2018-10-09] MEDS: Enoxaparin 40 mg Syringe SC SCH (09:07)
[2018-10-09 15:52] VITALS: BP 129/85; PULSE 90; RESP 20; TEMP 97.3; O2SAT 95
--- NOTE | 2018-10-10 00:38 | CP.PCM.DIS ---
Provider - Provider Date of Admission: 10/07/18 16:11 Attending physician: Jono Roa MD Consults: 10/07/18 16:27 Cardiology Consult Stat Comment: Consulting Provider: Ace Horton V Consulting Physician: Ace Horton V Reason for Consult: chf Pulmonology Consult Stat Comment: Consulting Provider: Oneil Reinoso I Consulting Physician: Oneil Reinoso I Reason for Consult: copd Time Spent in preparation of Discharge (in minutes): 30 Diagnosis - Discharge Diagnosis (1) Chronic congestive heart failure Status: Acute (2) COPD (chronic obstructive pulmonary disease) Status: Chronic Hospital Course - Lab Results Lab Results: Most Recent Lab Values WBC 5.2 K/uL (4.8-10.8) 10/08/18 05:20 RBC 5.21 Mil/uL (3.80-5.20) H 10/08/18 05:20 Hgb 13.0 g/dL (12.0-16.0) 10/08/18 05:20 Hct 42.0 % (34.0-47.0) 10/08/18 05:20 MCV 80.6 fl (81.0-99.0) L D 10/08/18 05:20 MCH 24.9 pg (27.0-31.0) L 10/08/18 05:20 MCHC 30.8 g/dL (33.0-37.0) L 10/08/18 05:20 RDW 24.0 % (11.5-14.5) H 10/08/18 05:20 Plt Count 186 K/uL (130-400) 10/08/18 05:20 MPV 8.1 fl (7.2-11.7) 10/08/18 05:20 Neut % (Auto) 72.8 % (50.0-75.0) 10/08/18 05:20 Lymph % (Auto) 11.1 % (20.0-40.0) L 10/08/18 05:20 [place] % (Auto) 13.6 % (0.0-10.0) H 10/08/18 05:20 Eos % (Auto) 1.9 % (0.0-4.0) 10/08/18 05:20 Baso % (Auto) 0.6 % (0.0-2.0) 10/08/18 05:20 Neut # (Auto) 3.8 K/uL (1.8-7.0) 10/08/18 05:20 Lymph # (Auto) 0.6 K/uL (1.0-4.3) L 10/08/18 05:20 [place] # (Auto) 0.7 K/uL (0.0-0.8) 10/08/18 05:20 Eos # (Auto) 0.1 K/uL (0.0-0.7) 10/08/18 05:20 Baso # (Auto) 0.0 K/uL (0.0-0.2) 10/08/18 05:20 pCO2 62 mm/Hg (35-45) H 10/07/18 14:03 pO2 57 mm/Hg (80-100) L 10/07/18 14:03 HCO3 31.9 mmol/L (21-28) H 10/07/18 14:03 ABG pH 7.38 (7.35-7.45) 10/07/18 14:03 ABG Total CO2 38.6 mmol/L (22-28) H 10/07/18 14:03 ABG O2 Saturation 94.6 % (95-98) L 10/07/18 14:03 ABG Base Excess 9.2 mmol/L (-2.0-3.0) H 10/07/18 14:03 Homero Test Yes 10/07/18 14:03 ABG Potassium 4.1 mmol/L (3.6-5.2) 10/07/18 14:03 A-a O2 Difference 115.0 mm/Hg 10/07/18 14:03 Sodium 133.0 mmol/L (132-148) 10/07/18 14:03 Chloride 94.0 mmol/L (98-107) L 10/07/18 14:03 Glucose 101 mg/dL (65-105) 10/07/18 14:03 Lactate 2.0 mmol/L (0.7-2.1) 10/07/18 14:03 Vent Mode Bipap 10/07/18 14:03 Mechanical Rate 14 10/07/18 14:03 FiO2 35.0 % 10/07/18 14:03 Inspiratory BiPAP 12 10/07/18 14:03 Expiratory BiPAP 6 10/07/18 14:03 Sodium 137 mmol/l (132-148) 10/08/18 05:20 Potassium 3.5 MMOL/L (3.6-5.0) L 10/08/18 05:20 Chloride 91 mmol/L (98-107) L 10/08/18 05:20 Carbon Dioxide 38 mmol/L (22-30) H 10/08/18 05:20 Anion Gap 12 (10-20) 10/08/18 05:20 BUN 18 mg/dl (7-17) H 10/08/18 05:20 Creatinine 0.6 mg/dl (0.7-1.2) L 10/08/18 05:20 Est GFR ( Amer) > 60 10/08/18 05:20 Est GFR (Non-Af Amer) > 60 10/08/18 05:20 Random Glucose 88 mg/dL (65-105) 10/08/18 05:20 Calcium 8.6 mg/dL (8.4-10.2) 10/08/18 05:20 Total Bilirubin 2.4 mg/dl (0.2-1.3) H 10/08/18 05:20 AST 39 U/L (14-36) H D 10/08/18 05:20 ALT 45 U/L (9-52) 10/08/18 05:20 Alkaline Phosphatase 97 U/L (38-126) 10/08/18 05:20 Troponin I 0.0220 ng/mL (0.00-0.120) 10/07/18 14:52 NT-Pro-B Natriuret Pep 3210 pg/ml (0-900) H 10/08/18 05:20 Total Protein 7.0 G/DL (6.3-8.2) 10/08/18 05:20 Albumin 3.3 g/dL (3.5-5.0) L 10/08/18 05:20 Globulin 3.6 gm/dL (2.2-3.9) 10/08/18 05:20 Albumin/Globulin Ratio 0.9 (1.0-2.1) L 10/08/18 05:20 Procalcitonin < 0.05 NG/ML (0.19-0.49) L 10/08/18 05:20 Arterial Blood Potassium 4.1 mmol/L (3.6-5.2) 10/07/18 14:03 - Hospital Course Hospital Course: Pt presented to the ED with dyspnea and BLE swelling. She was diagnosed with CHF/COPD exac and initially treated with lasix for fluid overload. After that, the pt was treated with IV steroids and duoneb treatments. Instructed pt on the importance of completing her sleep study and potential BIPAP outpatient to prevent rehospitalization. The pt was discharged to [facility]. Discharge Exam - Head Exam Head Exam: ATRAUMATIC, NORMAL INSPECTION, NORMOCEPHALIC - Eye Exam Eye Exam: EOMI, Normal appearance, PERRL Pupil Exam: NORMAL ACCOMODATION - ENT Exam ENT Exam: Mucous Membranes Moist - Neck Exam Neck exam: Full Rom - Respiratory Exam Respiratory Exam: Wheezes - Cardiovascular Exam Cardiovascular Exam: REGULAR RHYTHM, +S1, +S2 - GI/Abdominal Exam GI & Abdominal Exam: Normal Bowel Sounds, Soft - Extremities Exam Extremities exam: tenderness - Back Exam Back exam: NORMAL INSPECTION - Neurological Exam Neurological exam: Alert, CN II-XII Intact, Oriented x3 - Psychiatric Exam Psychiatric exam: Normal Affect, Normal Mood - Skin Skin Exam: Dry, Normal Color, Warm Discharge Plan - Follow Up Plan Condition: FAIR Disposition: REHAB FACILITY/REHAB UNIT Instructions: Exacerbation of COPD (DC) Referrals: Ace Horton MD [Staff Provider] - Oneil Reinoso MD [Staff Provider] -
--- NOTE | 2018-10-10 01:37 | PQF ---
PROVIDER RESPONSE TEXT: Symptoms on admission were that of acute on chronic CHF. Acute symptoms have since resolved s/p tx. REVIEWER QUERY TEXT: Conflicting Documentation Clarification Physician?s Documentation Request This Form is Not a Permanent Document in the Medical Record Pt Name: ALEX BENAVIDES MR #: [id number] Payor: MEDICARE PART A Unit/Bed: H.TEL-H418-2 Adm Date: 10/07/2018 4:11:00 PM Reviewer: Brooke Chen Ext. Query Date: 10/09/2018 2:19:58 PM Conflicting Documentation Clarification [id number] By submitting this query, we are merely seeking further clarification of documentation to accurately reflect all conditions that you are monitoring, evaluating, treating or that extend the hospitalizati on or utilize additional resources of care. Please utilize your independent clinical judgment when ad dressing the question(s) below. Dear Doctor Jeison Ramirez, The patient?s Clinical Indicators include: --- Chronic CHF as listed in the ER Clinical Impression versus Acute CHF as listed in the H and P. Please also document if the condition is: -- Confirmed and current -- Confirmed, treated and resolved -- Ruled out -- Other, please specify ProBNP: 3330->3210 10/07 CXR: Impression: Small to moderate right pleural effusion. Otherwise unremarkable. ER:ER: has increased swelling on lower extremities and has trouble breathing. Appears: + for: (obese) Uncomfortable (mild tachypnea, inability to lie flat, lying on side) Respiratory: Positive for: Normal Breath Sounds, Crackles Extremity: Positive for: Normal ROM, Pedal Edema (2+), obese; difficult to hear lungs Clinical Impression: Chronic congestive heart failure, COPD --given lasix with some improvement in symptoms also started on BIPAP to assist with breathing. H and P includes: H and P: presented to the ED for eval of SOB. At this time, pt is still unable to obtain BIPAP machine, and as a result has hypoxic episodes; in ED, fluid overload, including worsen ing BLE edema and dyspnea; treated with Lasix and showed rapid improvement.Cardiology and pulmonology w consults PMH: Anxiety, COPD, Depression, Fractures (right arm), HTN, Sleep Apnea. 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 10/08 Pulmonary consult includes: Lungs: Poor aeration bilaterally with scattered rales -morbidly obese PLEASE DOCUMENT ANY ADDITIONAL DIAGNOSES AND/OR SPECIFICITY IN THE PROGRESS NOTES AND/OR DISCHARGE COLLADO MMARY. Clinically unable to determine/unknown Disagree with the above request Need to discuss Query created by: Brooke Chen on 10/09/2018 2:19 PM Electronically signed by: Jeison Ramirez APN 10/10/2018 1:34 AM
--- NOTE | 2018-10-10 01:37 | PQF ---
PROVIDER RESPONSE TEXT: Agree with documentation of BMI 51.4. Pt is morbidly obese and currently seeking gastric sleeve weigh t loss procedure. REVIEWER QUERY TEXT: Clarification of Clinical Diagnostic Findings Physician?s Documentation Request This Form is Not a Permanent Document in the Medical Record Pt Name: ALEX BENAVIDES MR #: [id number] Payor: MEDICARE PART A Unit/Bed: H.TEL-H418-2 Adm Date: 10/07/2018 4:11:00 PM Reviewer: Brooke Chen Ext. Query Date: 10/09/2018 2:24:19 PM Clarification of Clinical Diagnostic Findings [id number] By submitting this query, we are merely seeking further clarification of documentation to accurately reflect all conditions that you are monitoring, evaluating, treating or that extend the hospitalizati on or utilize additional resources of care. Please utilize your independent clinical judgment when ad dressing the question(s) below. Dear Doctor Jeison Ramirez, The patient?s Clinical Indicators include: -- Please document if you are in agreement with the BMI: 51.4 as listed in the EMR -Or: Disagree -Or Other explanation of clinical finding Listed in the EMR:BMI:51.4 5ft 4in PLEASE DOCUMENT ANY ADDITIONAL DIAGNOSES AND/OR SPECIFICITY IN THE PROGRESS NOTES AND/OR DISCHARGE COLLADO MMARY. Clinically unable to determine/unknown Disagree with the above request Need to discuss Query created by: Brooke Chen on 10/09/2018 2:24 PM Electronically signed by: Jeison Ramirez APN 10/10/2018 1:34 AM
--- NOTE | 2018-10-10 09:33 | PQF ---
PROVIDER RESPONSE TEXT: Provider was unable to determine a response for this query. REVIEWER QUERY TEXT: CHF Acuity and Type Physician?s Documentation Request This Form is Not a Permanent Document in the Medical Record Pt Name: ALEX BENAVIDES MR #: [id number] Payor: MEDICARE PART A Unit/Bed: H.TEL-H418-2 Adm Date: 10/07/2018 4:11:00 PM Reviewer: Brooke Chen Ext. Query Date: 10/10/2018 8:53:55 AM CHF Acuity and Type [id number] By submitting this query, we are merely seeking further clarification of documentation to accurately reflect all conditions that you are monitoring, evaluating, treating or that extend the hospitalizati on or utilize additional resources of care. Please utilize your independent clinical judgment when ad dressing the question(s) below. Dear Doctor Jeison Ramirez, The patient?s Clinical Indicators include: -- Congestive Heart Failure is documented in the Medical Record. Please document the type if known: Type: -- Systolic -- Diastolic -- Combined -- Other, please specify PLEASE DOCUMENT ANY ADDITIONAL DIAGNOSES AND/OR SPECIFICITY IN THE PROGRESS NOTES AND/OR DISCHARGE COLLADO MMARY. Clinically unable to determine/unknown Disagree with the above request Need to discuss Query created by: Brooke Chen on 10/10/2018 8:53 AM Electronically signed by: Jeison Ramirez APN 10/10/2018 9:29 AM
--- NOTE | 2018-10-15 09:33 | PQF ---
PROVIDER RESPONSE TEXT: The acuity of Hypercapnic Respiratory Failure is Acute Hypercapnic Respiratory Failure was Present on admission REVIEWER QUERY TEXT: Hypercapnic Respiratory Failure is documented in the Medical Record. Please specify the acuity of this condition with terms such as: -- Acute -- Chronic -- Acute and chronic -- Acute on chronic -- Other (please specify in the medical record) ABG:ph:7.38 pCO2: 62 pO2:57 HCO3:31.9 on Bipap ER note complaining of increased swelling on lower extremities and has trouble breathing. Additional; Complaints:complaining of shortness of breath since she was last discharged September 26.Daughter states since then patient couldn?t breathe and has a history of sleep apnea reason why patient needed to get a bipap machine. Appears: + for: (obese) Uncomfortable (mild tachypnea, inability to lie flat, lying on side) obese; difficult to hear lungs Initial Plan: pt given lasix with some improvement in symptoms also started on BIPAP to assist with breathing. Clinical Impression: Chronic congestive heart failure, COPD 10/08 Pulmonary consult includes: morbidly obese Lungs: Poor aeration bilaterally with scattered rales. Impression: Acute exacerbation of chronic obstructive pulmonary disease with hypercapnic respiratory failure Plan: O2 supplementation, BiPap therapy at nighttime.We will continue aerosolized bronchodilators, IV steroids, IV diuretics..The patient advised compliance to medication and diet and she will need to go for sleep studies as an outpatient in attempts to obtain BiPap machine, Query created by: Brooke Chen 10/09/2018 02:05 PM It is unclear whether a diagnosis was present on admission. Please clarify the POA status of Hypercapnic Respiratory Failure: Such as: -- Present on admission -- Not present on admission Query created by: Brooke Chen on 10/09/2018 02:06 PM LINDA
== END 2018-10-09 16:00 | DRG 291 ==
LOC: H.ER 13:20 → H.ERHOLD 16:11 → H.TEL 18:01
PROVIDERS: ADMIT Family Medicine; ATTEND Family Medicine
PROC: 5A09357 Assistance with Respiratory Ventilation, Less than 24 Consecutive Hours, Continuous Positive Airway Pressure (ICD-10-PCS; principal; 2018-10-07)
DX: I11.0 Hypertensive heart disease with heart failure (principal); J96.02 Acute respiratory failure with hypercapnia; J44.1 Chronic obstructive pulmonary disease with (acute) exacerbation; Z68.43 Body mass index [BMI] 50.0-59.9, adult; I50.9 Heart failure, unspecified; E66.01 Morbid (severe) obesity due to excess calories; G47.33 Obstructive sleep apnea (adult) (pediatric); I27.20 Pulmonary hypertension, unspecified; E11.9 Type 2 diabetes mellitus without complications; Z91.19 Patient's noncompliance with other medical treatment and regimen; F32.9 Major depressive disorder, single episode, unspecified; F41.9 Anxiety disorder, unspecified; Z98.84 Bariatric surgery status; Z88.0 Allergy status to penicillin; Z87.891 Personal history of nicotine dependence; Z79.82 Long term (current) use of aspirin; Z91.041 Radiographic dye allergy status; Z88.2 Allergy status to sulfonamides; Z91.81 History of falling